=== PATIENT | male | born 1930 | race Caucasian/White ===

== ENCOUNTER 2016-12-13 10:24 | Observation (INO) | payer OTHER ==
[2016-12-13] VITALS (11 sets, daily range): BP systolic 107–144; BP diastolic 56–83; PULSE 63–82; RESP 15–20; TEMP 96.6–98.1; O2SAT 95–99
--- NOTE | 2016-12-13 10:58 | PD ---
HPI Chief Complaint: Syncope/Near-Syncope Time Seen by Provider: 10:49 Travel History International Travel<30 days: No Contact w/Intl Traveler<30days: No Traveled to known affect area: No History of Present Illness HPI This is an 86-year-old gentleman with a history of paroxysmal atrial fibrillation, autonomic dysfunction involving the vagus nerve, chronic headache and head congestion, Crohn's disease, who presents to the ED at the request of his doctor at the [place] for evaluation of abnormal EKG. The patient reports that he was being seen at the [facility] and when his physician was reading his EKG, she told him that he may have had a silent heart attack. The patient reports last night he had an episode of chest tightness that lasted 15-20 minutes. There was no associated exertional component. He reports the tightness was across his chest and this is not normal for him. The patient denies any nausea or diaphoresis. He does state that his bowel movements have changed over the last several months. There are no other complaints at the time my examination. PFSH Past Medical History Cardiovascular Problems: Yes (AFIB, VASOVAGAL SYNDROME) Social History Alcohol Use: No Tobacco Use: No Substance Use: No Allergies-Medications (Allergen,Severity, Reaction): Coded Allergies: Bactrim (Verified Allergy, Severe, 12/13/16) Penicillin (Verified Allergy, Intermediate, 12/13/16) Reported Meds & Prescriptions Reported Meds & Active Scripts Active Reported Lorazepam 1 Mg Tab 1 Mg PO Q4H PRN Cyanocobalamin Inj (Cyanocobalamin) 1,000 Mcg/Ml Inj 1,000 Mcg IM MONTHLY 2 Days Terazosin (Terazosin HCl) 2 Mg Cap 2 Mg PO HS Clonazepam 2 Mg Tab 2 Mg PO DAILY Cymbalta DR (Duloxetine HCl) 30 Mg Capdr 30 Mg PO DAILY Pantoprazole (Pantoprazole Sodium) 40 Mg Tab 40 Mg PO DAILY Potassium Chloride ER (Potassium Chloride) 20 Meq Tab 20 Meq PO BID Saw [place] (Saw [place] (Serenoa Repens)) 160 Mg Tab Vitamin K2 (Menaquinone-7) 100 Mcg Cap Biotin 1 Mg Cap 1 Mg PO Flecainide (Flecainide Acetate) 100 Mg Tab 100 Mg PO BID Eliquis (Apixaban) 5 Mg Tab 5 Mg PO BID Metamucil Multihealth Fiber (Psyllium Hydrophilic Mucilloid) 58.12 % Pow Fluticasone Nasal [place] 50 Mcg/Act Naspr 50 Mcg EACH NARE BID 50 mcg/spray Claritin (Loratadine) 10 Mg Cap 10 Mg PO DAILY Bupropion HCl ER 12 HR (Bupropion HCl) 150 Mg Tab 150 Mg PO Q12HR Fish Oil ([place]-3 Fatty Acids) 1,000 Mg Cap Vitamin D3 (Cholecalciferol) 400 Unit Cap 400 Units PO DAILY Calcium Carbonate 1,500 Mg Tab 1,500 Mg PO BID 1,500 mg calcium carbonate (600 mg elemental calcium) Glucosamine-Chondroitin 500-400 Mg Cap 1 Cap PO DAILY Review of Systems Except as stated in HPI: all other systems reviewed are Neg General / Constitutional: No: Fever HENT: Positive: Headaches, Lightheadedness (chronic), Congestion (chronic) Cardiovascular: Positive: Chest Pain or Discomfort, No: Palpitations (chest tightness yesterday.), Irregular Rhythm Respiratory: No: Cough, Shortness of Breath Gastrointestinal: No: Nausea, Vomiting, Abdominal Pain Musculoskeletal: No: Weakness Neurologic: Positive: Syncope (questionable), Headache (chronic), Other ( chronic neuropathy of the feet), No: Change in Mentation, Incontinence Physical Exam Narrative GENERAL: Well-developed well-nourished male in no acute distress. SKIN: Warm and dry. HEAD: Atraumatic. Normocephalic. EYES: No scleral icterus. No injection or drainage. ENT: No nasal bleeding or discharge. Mucous membranes pink and moist. NECK: Trachea midline. No JVD. Supple. No bruises appreciated CARDIOVASCULAR: Regular rate and rhythm. No murmur appreciated. RESPIRATORY: No accessory muscle use. Clear to auscultation. Breath sounds equal bilaterally. GASTROINTESTINAL: Abdomen soft, non-tender, nondistended. MUSCULOSKELETAL: Chronic deformity of his right toes. No cyanosis. No edema. NEUROLOGICAL: Awake and alert. No obvious cranial nerve deficits. Motor grossly within normal limits. Normal speech. PSYCHIATRIC: Appropriate mood and affect; insight and judgment normal. Data Data Last Documented VS Vital Signs Date Time Temp Pulse Resp B/P Pulse Ox O2 Delivery O2 Flow Rate FiO2 12/13/16 11:12 99 Nasal Cannula 2 12/13/16 11:11 69 118/77 116/56 12/13/16 10:30 98.1 15 Orders Electrocardiogram (12/13/16 10:49) Ckmb (Isoenzyme) Profile (12/13/16 10:49) Complete Blood Count With Diff (12/13/16 10:49) Comprehensive Metabolic Panel (12/13/16 10:49) Magnesium (Mg) (12/13/16 10:49) Prothrombin Time / Inr (Pt) (12/13/16 10:49) Act Partial Throm Time (Ptt) (12/13/16 10:49) Troponin I (12/13/16 10:49) Chest, Single Ap (12/13/16 10:49) Ecg Monitoring (12/13/16 10:49) Bilateral Bp Monitoring (12/13/16 10:49) Iv Access Insert/Monitor (12/13/16 10:49) Oximetry (12/13/16 10:49) Oxygen Administration (12/13/16 10:49) CKMB (12/13/16 11:05) CKMB% (12/13/16 11:05) Place In Observation (12/13/16 ) Vital Signs (Adult) Q4H (12/13/16 12:26) Activity Oob Ad Shaila (12/13/16 12:26) Mobile Battery Technician / Telemetry SCOT.Q8H (12/13/16 12:26) Diet Heart Healthy (12/13/16 Lunch) Sodium Chloride 0.9% Flush (Ns Flush) (12/13/16 12:30) Sodium Chloride 0.9% Flush (Ns Flush) (12/13/16 21:00) Complete Blood Count With Diff (12/14/16 06:00) Basic Metabolic Panel (Bmp) (12/14/16 06:00) Troponin I (12/13/16 17:00) Troponin I (12/13/16 23:00) Electrocardiogram (12/13/16 17:00) Consult Cardiology (12/13/16 ) Potassium Cl 40 Meq/30 Ml Liq (Kcl 40 Me (12/13/16 12:30) Admit Order (Ed Use Only) (12/13/16 12:30) Labs Laboratory Tests Test 12/13/16 11:05 White Blood Count 6.3 TH/MM3 Red Blood Count 4.50 MIL/MM3 Hemoglobin 13.3 GM/DL Hematocrit 39.8 % Mean Corpuscular Volume 88.6 FL Mean Corpuscular Hemoglobin 29.5 PG Mean Corpuscular Hemoglobin 33.4 % Concent Red Cell Distribution Width 15.6 % Platelet Count 187 TH/MM3 Mean Platelet Volume 7.5 FL Neutrophils (%) (Auto) 69.2 % Lymphocytes (%) (Auto) 19.5 % Monocytes (%) (Auto) 7.8 % Eosinophils (%) (Auto) 2.9 % Basophils (%) (Auto) 0.6 % Neutrophils # (Auto) 4.3 TH/MM3 Lymphocytes # (Auto) 1.2 TH/MM3 Monocytes # (Auto) 0.5 TH/MM3 Eosinophils # (Auto) 0.2 TH/MM3 Basophils # (Auto) 0.0 TH/MM3 CBC Comment DIFF FINAL Differential Comment Prothrombin Time 11.1 SEC Prothromb Time International 1.0 RATIO Ratio Activated Partial 27.5 SEC Thromboplast Time Sodium Level 140 MEQ/L Potassium Level 2.9 MEQ/L Chloride Level 105 MEQ/L Carbon Dioxide Level 26.0 MEQ/L Anion Gap 9 MEQ/L Blood Urea Nitrogen 13 MG/DL Creatinine 1.58 MG/DL Estimat Glomerular Filtration 42 ML/MIN Rate Random Glucose 106 MG/DL Calcium Level 8.2 MG/DL Magnesium Level 1.6 MG/DL Total Bilirubin 0.6 MG/DL Aspartate Amino Transf 23 U/L (AST/SGOT) Alanine Aminotransferase 25 U/L (ALT/SGPT) Alkaline Phosphatase 71 U/L Total Creatine Kinase 137 U/L Creatine Kinase MB 1.3 NG/ML Troponin I LESS THAN 0.02 NG/ML Total Protein 6.3 GM/DL Albumin 3.2 GM/DL [facility] Medical Decision Making Medical Screen Exam Complete: Yes Emergency Medical Condition: Yes Differential Diagnosis Cardiac syncope versus ACS versus autonomic syncope Narrative Course 86-year-old gentleman with a history of autonomic dysfunction, Crohn's disease, reported paroxysmal A. fib, who presents [facility] with concern for a "silent heart attack ". The patient states he had chest pain that lasted 1520 minutes last night. EKG is equivocal. First set of cardiac enzymes are negative. His potassium was low at 2.9. He's been given 40 mg by mouth times one dose here. Given the fact that he is also having syncope or or what sounds like syncope, I feel he would be best suited in a telemetry bed rather than the chest pain center. I do not think that this chest pain center is truly cardiac in etiology. The patient reports having episodes where he just falls down with no warning. This sounds suspicious for cardiac syncope. I discussed the case with Dr. Artem Baker, [facility], who agrees to place the patient under his service under observation. He'll be placed on the telemetry unit. He'll have further cardiac workup. There also be a cardiology consult. Nursing notes were reviewed and noted. Diagnosis Primary Impression: Chest pain Additional Impressions: Atypical syncope reported paroxysmal atrial fibrillation Crohns disease HYPOKALEMIA Taj Vail MD Dec 13, 2016 10:58
[2016-12-13] MEDS ORDERED: GLUC1CAP14 PO (11:21)
[2016-12-13] MEDS ORDERED: CHOL1CAP8 PO (11:21)
[2016-12-13] MEDS ORDERED: SAW160TA (11:21)
[2016-12-13] MEDS ORDERED: FLEC100T PO (11:21)
[2016-12-13] MEDS ORDERED: FISH1000 (11:21)
[2016-12-13] MEDS ORDERED: BIOT1CAP2 PO (11:21)
[2016-12-13] MEDS ORDERED: POTA-163 PO (11:21)
[2016-12-13] MEDS ORDERED: BUPR1TAB29 PO (11:21)
[2016-12-13] MEDS ORDERED: PSYL1POW7 (11:21)
[2016-12-13] MEDS ORDERED: APIX5TAB PO (11:21)
[2016-12-13] MEDS ORDERED: CALC600T4 PO (11:21)
[2016-12-13] MEDS ORDERED: FLUT50SP EACH NARE (11:21)
[2016-12-13] MEDS ORDERED: MENA1CAP (11:21)
[2016-12-13] MEDS ORDERED: CLAR10CA3 PO (11:21)
[2016-12-13] MEDS ORDERED: PANT40TA3 PO (11:28)
[2016-12-13] MEDS ORDERED: CYMB30CA PO (11:28)
[2016-12-13] MEDS ORDERED: TERA2CAP3 PO (11:28)
[2016-12-13] MEDS ORDERED: CLON2TAB PO (11:28)
[2016-12-13] MEDS ORDERED: CYAN1000P IM (11:28)
[2016-12-13] MEDS ORDERED: LORA1TAB12 PO (11:28)
[2016-12-13 11:29] LABS: AUTOMATED NEUTROPHIL # 4.3 TH/MM3 (1.8-7.7); BASOPHIL % 0.6 % (0.0-2.0); EOSINOPHIL # 0.2 TH/MM3 (0-0.4); EOSINOPHIL % 2.9 % (0.0-4.0); HEMATOCRIT 39.8 % (39.0-51.0); HEMO FLAGS DIFF FINAL; LYMPH % 19.5 % (9.0-44.0); LYMPHOCYTE # 1.2 TH/MM3 (1.0-4.8); MEAN CELL VOLUME 88.6 FL (80.0-100.0); MEAN CORPUSCULAR HEMOGLOBIN 29.5 PG (27.0-34.0); MEAN CORPUSCULAR HGB CONC 33.4 % (32.0-36.0); MONO % 7.8 % (0.0-8.0); NEUT % 69.2 % (16.0-70.0); PLATELET COUNT 187 TH/MM3 (150-450); RED CELL DISTRIBUTION WIDTH 15.6 % (11.6-17.2); WHITE BLOOD COUNT 6.3 TH/MM3 (4.0-11.0)
--- NOTE | 2016-12-13 11:34 | RADRPT ---
EXAM DATE/TIME: 12/13/2016 10:59 [facility] COMPARISON: No previous studies available for comparison. INDICATIONS : Chest Pain. MEDICAL HISTORY : Chronic obstructive pulmonary disease. SURGICAL HISTORY : None. ENCOUNTER: Initial ACUITY: 1 day PAIN SCORE: 8/10 LOCATION: Bilateral chest FINDINGS: Trace basilar atelectasis, mainly on the left. No lobar consolidation seen. No pleural effusion or pn eumothorax. Heart size within normal limits. Thoracic aorta is tortuous. Old, healed midshaft fracture of the lef t clavicle. CONCLUSION: Trace left base atelectasis. Otherwise negative. Colton De La Cruz MD on December 13, 2016 at 11:32 Board Certified Radiologist. This report was verified electronically.
[2016-12-13 11:39] LABS: APTT (PATIENT) 27.5 SEC (24.3-30.1); PROTHROMBIN TIME - PATIENT 11.1 SEC (9.8-11.6)
[2016-12-13 11:49] LABS: ALKALINE PHOSPHATASE 71 U/L (45-117); ALT (GPT) 25 U/L (12-78); ANION GAP 9 MEQ/L (5-15); AST (GOT) 23 U/L (15-37); BLOOD UREA NITROGEN 13 MG/DL (7-18); CHLORIDE 105 MEQ/L (98-107); CREATINE KINASE 137 U/L (39-308); GLOMERULAR FILTRATION RATE 42 ML/MIN (>89); MAGNESIUM 1.6 MG/DL (1.5-2.5); SODIUM (NA) 140 MEQ/L (136-145); TOTAL BILIRUBIN ADULT 0.6 MG/DL (0.2-1.0)
[2016-12-13 11:50] LABS: POTASSIUM 2.9 MEQ/L (3.5-5.1)
[2016-12-13 12:05] LABS: CKMB 1.3 NG/ML (0.5-3.6)
[2016-12-13] MEDS ORDERED: POTASSIUM CL 40 MEQ/30 ML LIQ UDC PO ONE (12:30)
[2016-12-13] MEDS ORDERED: SODIUM CHLORIDE 0.9% FLUSH 5 ML FLUSH IV PRN (12:30)
--- NOTE | 2016-12-13 15:12 | EKG ---
Date Performed: 12/13/2016 Time Performed: 10:50:23 PTAGE: 86 years EKG: Sinus rhythm LEFT AXIS DEVIATION INTRAVENTRICULAR CONDUCTION DISTURBANCE ABNORMAL ECG INTERPRETATION BASED ON A D EFAULT AGE OF 42 YEARS NO PREVIOUS TRACING DOCTOR: Taj Del Real Interpretating Date/Time 12/13/2016 15:11:32
--- NOTE | 2016-12-13 17:16 | HHI.HP ---
[facility] Service [facility] Primary Care Physician [facility] Admission Diagnosis chest pain, syncope, hypokalemia Diagnoses: Chief Complaint: chest pain, syncope Travel History International Travel<30 Days: No Contact w/Intl Traveler <30 Da: No Traveled to Known Affected Are: No History of Present Illness 86-year-old male with history of paroxysmal atrial fibrillation on Eliquis, autonomic dysfunction of vagus nerve, chronic headache/congestion, chronic dizziness/lightheadedness, occipital neuralgia, polyneuropathy, vasovagal syndrome, Crohn's disease, ELICIA, COPD, presents with chest pain, dizziness/ lightheadedness, and syncope. The patient states he had an episode 2 weeks ago where he was inside his home, stepped to the left to go to the refrigerator, and all of a sudden ended up on the floor. He denies any loss of consciousness, denies hitting his head. He states this happened so quickly that he only remembers starting to fall, then all of a sudden just ends up on the floor. He put his arms out to brace himself with the fall and then felt sore around the right shoulder and thorax over the next few days. He denies any chest pain, palpitations, or shortness of breath related to these events. This has happened 3-4x in the past few years. He has been able to go to the gym 4x this week without difficulty. He saw his PCP at the [facility] yesterday for this, did an EKG, compared it to an EKG done 1 year ago, and she was concerned he may have had a "silent" heart attack which is resulting in his syncopal episodes, therefore he was referred to the emergency department. Yesterday the patient reports he went to the store and was out doing errands all day, but then later in the afternoon he was just feeling very weak, tired, and laid down for a 3 hour nap which made him feel better but then he had a diffuse global headache that lasted an hour, then shortly after developed a diffuse anterior chest heaviness that lasted 15 minutes and went away after relaxing in his recliner. Chest pain not associated with any SOB, diaphoresis, nausea/vomiting. Currently he denies any headache, lightheadedness, dizziness, chest pain, palpitations, shortness of breath, or abdominal complaints. His shank stitcher is Dr. Toscano, last seen 1 month ago. He had a nuclear stress test done at Dr. Toscano's office in September 2016 which was unremarkable. Also reports an unremarkable echocardiogram done at the [facility] 9-10 months ago. He's also had a Holter monitor done in the past. He also sees a neurologist at the [facility] for his autonomic nervous system disorder. Review of Systems Constitutional: COMPLAINS OF: Dizziness, DENIES: Diaphoretic episodes, Fever, Chills, Change in appetite Eyes: DENIES: Blurred vision, Diplopia, Double Vision Ears, nose, mouth, throat: DENIES: Throat pain, Running Nose, Odynophagia Respiratory: DENIES: Cough, Shortness of breath Cardiovascular: COMPLAINS OF: Chest pain, Syncope, DENIES: Palpitations, Dyspnea on Exertion, Lower Extremity Edema Gastrointestinal: DENIES: Abdominal pain, Constipation, Diarrhea, Nausea, Vomiting Genitourinary: DENIES: Urgency, Dysuria Musculoskeletal: DENIES: Joint pain, Back pain, Neck pain Integumentary: DENIES: Pruritus, Rash Hematologic/lymphatic: DENIES: Bruising, Lymphadenopathy Immunologic/allergic: DENIES: Eczema, Urticaria Neurologic: COMPLAINS OF: Headache, DENIES: Abnormal gait, Localized weakness , Seizures Psychiatric: DENIES: Anxiety, Depression Past Family Social History Past Medical History paroxysmal atrial fibrillation on Eliquis autonomic dysfunction of vagus nerve chronic headache/congestion chronic dizziness/lightheadedness occipital neuralgia polyneuropathy vasovagal syndrome Crohn's disease ELICIA COPD Past Surgical History anterior cervical discectomy 2004 with plate tonsillectomy/adenoidectomy as a child ileocolonic resection, removed ileocecal valve cholecystectomy skin cancer resections 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, 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, 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 Reported Medications Lorazepam 1 Mg Tab 1 Mg PO Q4H PRN Cyanocobalamin Inj (Cyanocobalamin) 1,000 Mcg/Ml Inj 1,000 Mcg IM MONTHLY 2 Days Terazosin (Terazosin HCl) 2 Mg Cap 2 Mg PO HS Clonazepam 2 Mg Tab 2 Mg PO DAILY Cymbalta DR (Duloxetine HCl) 30 Mg Capdr 30 Mg PO DAILY Pantoprazole (Pantoprazole Sodium) 40 Mg Tab 40 Mg PO DAILY Potassium Chloride ER (Potassium Chloride) 20 Meq Tab 20 Meq PO BID Saw [place] (Saw [place] (Serenoa Repens)) 160 Mg Tab Vitamin K2 (Menaquinone-7) 100 Mcg Cap Biotin 1 Mg Cap 1 Mg PO Flecainide (Flecainide Acetate) 100 Mg Tab 100 Mg PO BID Eliquis (Apixaban) 5 Mg Tab 5 Mg PO BID Metamucil Multihealth Fiber (Psyllium Hydrophilic Mucilloid) 58.12 % Pow Fluticasone Nasal [place] 50 Mcg/Act Naspr 50 Mcg EACH NARE BID 50 mcg/spray Claritin (Loratadine) 10 Mg Cap 10 Mg PO DAILY Bupropion HCl ER 12 HR (Bupropion HCl) 150 Mg Tab 150 Mg PO Q12HR Fish Oil ([place]-3 Fatty Acids) 1,000 Mg Cap Vitamin D3 (Cholecalciferol) 400 Unit Cap 400 Units PO DAILY Calcium Carbonate 1,500 Mg Tab 1,500 Mg PO BID 1,500 mg calcium carbonate (600 mg elemental calcium) Glucosamine-Chondroitin 500-400 Mg Cap 1 Cap PO DAILY Allergies: Coded Allergies: Bactrim (Verified Allergy, Severe, 12/13/16) Penicillin (Verified Allergy, Intermediate, 12/13/16) Active Ordered Medications Current Medications Medications (Trade) Dose Ordered Sig/Jm Route Start Time Stop Time Status Last Admin (NS Flush) 2 ml UNSCH PRN IV 12/13/16 12:30 (NS Flush) 2 ml BID IV 12/13/16 21:00 (Eliquis) 5 mg BID PO 12/13/16 21:00 (Wellbutrin Sr) 150 mg Q12HR PO 12/13/16 21:00 (Oscal) 1,500 mg BID PO 12/13/16 21:00 (Vitamin D3) 400 units DAILY PO 12/14/16 09:00 (KlonoPIN) 2 mg DAILY PO 12/14/16 09:00 (Cymbalta Dr) 30 mg DAILY PO 12/14/16 09:00 (Tambocor) 100 mg BID PO 12/13/16 21:00 (Flonase Wale Spr) 1 spray BID EACH NARE 12/13/16 21:00 (Claritin) 10 mg DAILY PO 12/14/16 09:00 (Protonix) 40 mg DAILY PO 12/14/16 09:00 (KCl) 20 meq BID PO 12/13/16 21:00 (Hytrin) 2 mg HS PO 12/13/16 21:00 Family History Mother with lung cancer, smoker Father unknown medical history Sister with thyroid cancer Social History Smoked tobacco for 29+ years, quit in 1983 Denies any alcohol or illicit drug use Physical Exam Vital Signs Vital Signs Date Time Temp Pulse Resp B/P Pulse Ox O2 Delivery O2 Flow Rate FiO2 12/13/16 16:10 96.6 67 18 120/74 96 12/13/16 13:59 144/70 12/13/16 13:12 107/83 12/13/16 11:12 99 Nasal Cannula 2 12/13/16 11:11 69 118/77 116/56 12/13/16 10:53 99 Room Air 12/13/16 10:38 80 99 Room Air 12/13/16 10:36 12/13/16 10:30 98.1 82 15 114/58 97 Physical Exam GENERAL: Well-nourished, well-developed pleasant elderly male patient in [facility]. SKIN: Warm and dry. No rash. HEAD: Normocephalic. Atraumatic. EYES: Pupils equal and round. No scleral icterus. No injection or drainage. ENT: No nasal bleeding or discharge. Mucous membranes pink and moist. NECK: Supple. Trachea midline. CARDIOVASCULAR: Regular rate and rhythm. S1, S2 noted. No murmur appreciated. RESPIRATORY: No accessory muscle use. Clear to auscultation. Breath sounds equal bilaterally. GASTROINTESTINAL: Abdomen soft, non-tender, nondistended. Normoactive bowel sounds x4. MUSCULOSKELETAL: No obvious deformities. Extremities without clubbing, cyanosis , or edema. No calf tenderness bilaterally. NEUROLOGICAL: Awake and alert. No obvious cranial nerve deficits. Motor grossly within normal limits. 5/5 muscle strength in bilateral upper and lower extremities. Normal speech. PSYCHIATRIC: Appropriate mood and affect; insight and judgment normal. Laboratory Laboratory Tests Test 12/13/16 11:05 White Blood Count 6.3 Red Blood Count 4.50 Hemoglobin 13.3 Hematocrit 39.8 Mean Corpuscular Volume 88.6 Mean Corpuscular Hemoglobin 29.5 Mean Corpuscular Hemoglobin 33.4 Concent Red Cell Distribution Width 15.6 Platelet Count 187 Mean Platelet Volume 7.5 Neutrophils (%) (Auto) 69.2 Lymphocytes (%) (Auto) 19.5 Monocytes (%) (Auto) 7.8 Eosinophils (%) (Auto) 2.9 Basophils (%) (Auto) 0.6 Neutrophils # (Auto) 4.3 Lymphocytes # (Auto) 1.2 Monocytes # (Auto) 0.5 Eosinophils # (Auto) 0.2 Basophils # (Auto) 0.0 CBC Comment DIFF FINAL Differential Comment Prothrombin Time 11.1 Prothromb Time International 1.0 Ratio Activated Partial 27.5 Thromboplast Time Sodium Level 140 Potassium Level 2.9 Chloride Level 105 Carbon Dioxide Level 26.0 Anion Gap 9 Blood Urea Nitrogen 13 Creatinine 1.58 Estimat Glomerular Filtration 42 Rate Random Glucose 106 Calcium Level 8.2 Magnesium Level 1.6 Total Bilirubin 0.6 Aspartate Amino Transf 23 (AST/SGOT) Alanine Aminotransferase 25 (ALT/SGPT) Alkaline Phosphatase 71 Total Creatine Kinase 137 Creatine Kinase MB 1.3 Troponin I LESS THAN 0.02 Total Protein 6.3 Albumin 3.2 Result Diagram: 12/13/16 1105 12/13/16 1105 Imaging Last Impressions Chest X-Ray 12/13/16 1049 Signed Impressions: Service Date/Time: Tuesday, December 13, 2016 10:59 - CONCLUSION: Trace left base atelectasis. Otherwise negative. Colton De La Cruz MD Carotid Artery Ultrasound 12/13/16 0000 Signed Impressions: Service Date/Time: Tuesday, December 13, 2016 16:14 - CONCLUSION: 1. Mild intimal thickening without hemodynamically significant stenosis in the carotid arteries. Camron Medley MD Assessment and Plan Assessment and Plan 86-year-old male with history of paroxysmal atrial fibrillation on Eliquis, autonomic dysfunction of vagus nerve, chronic headache/congestion, chronic dizziness/lightheadedness, occipital neuralgia, polyneuropathy, vasovagal syndrome, Crohn's disease, ELICIA, COPD, presents with chest pain, dizziness/ lightheadedness, and syncope. He was seen at the [facility], noted to have an abnormal EKG concerning for possible "silent [place]" and sent here to the ER for further evaluation. Chest Pain: with reportedly abnormal EKG as outpatient. CXR images reviewed, unremarkable. Initial troponin negative and EKG without acute ST changes. Currently chest pain free. Pt reports outpatient Nuclear Stress Test in Sep 2016 which was unremarkable. Also had echo done 9-10 months ago which was unremarkable. -Rule out ACS with serial cardiac enzymes/EKG. -Monitor on telemetry. -Consult patient's shank stitcher Dr. Toscano Near-Syncopal Events: unclear etiology. Outpatient echo and Holter done within the past year, will try to obtain records. -check carotid U/S -with ongoing headache and head congestion/pressure, will check Head CT -check orthostatic blood pressures -needs to f/up with his neurologist as outpatient after discharge Paroxysmal Atrial Fibrillation: chronic -continue patient's Eliquis and Flecainide -monitor on telemetry Hypokalemia: K 2.9. Mag 1.6. -given po KCl 40meq -give Mag sulfate 1G IV -repeat BMP in the am CHRISTINA: Cr 1.58, no previous labs to compare, assume CHRISTINA related to dehydration -give IVF NS with KCl x1L -repeat BMP in the am Depression/Anxiety: chronic -continue patient's clonazepam, Wellbutrin, Cymbalta All other medical conditions stable, continue home medications as appropriate. DVT Prophylaxis: Eliquis Written by Dolores Sullivan, acting as scribe for Dr. Vasquez on 12/13/16 at 17: 10. The documentation accurately reflects the work performed [id number] by me on 12/13/16 at 1710. Code Status Full Discussed Condition With Patient, Sandeep CONRAD MD, RN, Kristine F PA-C Dec 13, 2016 17:16 Evelin Vasquez MD Dec 13, 2016 18:41
--- NOTE | 2016-12-13 17:31 | RADRPT ---
EXAM DATE/TIME: 12/13/2016 16:14 [facility] COMPARISON: No previous studies available for comparison. INDICATIONS : Syncope. MEDICAL HISTORY : Hypertension. A-fib. SURGICAL HISTORY : Iliocolic resection. ENCOUNTER: Initial ACUITY: 1 day PAIN SCORE: 0/10 LOCATION: Bilateral neck PEAK SYSTOLIC VELOCITIES (cm/sec): ICA/CCA RATIO: Right: 1.2 Left: 1.1 ICA: Right: 79 Left: 77 CCA: Right: 64 Left: 69 ECA: Right: 79 Left: 77 VERTEBRAL: Right: 40 antegrade Left: 47 antegrade Elevated flow velocities and ICA/CCA ratios have been found to correlate with increased degrees of vessel stenosis, calculated as percentage of diameter relative to a normal segment of distal ICA/CCA FINDINGS: RIGHT CAROTID: No significant stenosis is visualized. The waveforms are within normal limits. LEFT CAROTID: No significant stenosis is visualized. The waveforms are within normal limits. VERTEBRAL ARTERIES: Antegrade flow is seen in both vertebral arteries. MISCELLANEOUS: None. CONCLUSION: 1. Mild intimal thickening without hemodynamically significant stenosis in the carotid arteries. Camron Medley MD on December 13, 2016 at 17:17 Board Certified Radiologist. This report was verified electronically.
[2016-12-13] MEDS ORDERED: NS + KCL 20 MEQ INJ 1,000 ML IV SCH (18:15)
[2016-12-13] MEDS ORDERED: MAGNESIUM SULFATE 1 GM PREMIX 100 ML IV ONE (19:00)
[2016-12-13] MEDS: FLECAINIDE ACETATE 100 MG TAB PO SCH ×2 (22:02→23:09)
[2016-12-13] MEDS: POTASSIUM CHLORIDE 20 MEQ CONTROLLED RELEASE TAB PO SCH ×2 (22:02→23:09)
[2016-12-13] MEDS: buPROPion HCL 150 MG SUSTAINED RELEASE TAB PO SCH ×2 (22:02→23:09)
[2016-12-13] MEDS: CALCIUM CARBONATE 1.25 GM (CA 500 MG) TAB PO SCH ×2 (22:02→23:09)
[2016-12-13] MEDS: FLUTICASONE PROPIONATE 50 MCG/ACT 16 GM NASAL SPRAY EACH NARE SCH (22:02)
[2016-12-13] MEDS: TERAZOSIN HCL 1 MG CAP PO SCH (22:03)
[2016-12-13] MEDS: SODIUM CHLORIDE 0.9% FLUSH 5 ML FLUSH IV SCH (22:03)
[2016-12-13] MEDS: APIXABAN 5 MG TABLET PO SCH (22:03)
[2016-12-14] MEDS: TERAZOSIN HCL 1 MG CAP PO SCH (00:09)
[2016-12-14] MEDS: APIXABAN 5 MG TABLET PO SCH (00:09)
[2016-12-14 03:58] VITALS: BP 106/54; PULSE 67; RESP 20; TEMP 97.6; O2SAT 95
[2016-12-14 05:29] LABS: AUTOMATED NEUTROPHIL # 3.6 TH/MM3 (1.8-7.7); BASOPHIL % 0.4 % (0.0-2.0); EOSINOPHIL # 0.2 TH/MM3 (0-0.4); EOSINOPHIL % 4.3 % (0.0-4.0); HEMATOCRIT 35.1 % (39.0-51.0); HEMO FLAGS DIFF FINAL; LYMPH % 25.1 % (9.0-44.0); LYMPHOCYTE # 1.4 TH/MM3 (1.0-4.8); MEAN CELL VOLUME 86.8 FL (80.0-100.0); MEAN CORPUSCULAR HEMOGLOBIN 30.4 PG (27.0-34.0); MONO % 7.4 % (0.0-8.0); NEUT % 62.8 % (16.0-70.0); PLATELET COUNT 169 TH/MM3 (150-450); RED BLOOD COUNT 4.05 MIL/MM3 (4.50-5.90); RED CELL DISTRIBUTION WIDTH 15.8 % (11.6-17.2); WHITE BLOOD COUNT 5.7 TH/MM3 (4.0-11.0)
[2016-12-14 06:35] LABS: BICARBONATE 26.7 MEQ/L (21.0-32.0)
[2016-12-14 06:40] LABS: POTASSIUM 2.8 MEQ/L (3.5-5.1)
[2016-12-14] MEDS ORDERED: POTASSIUM CHLORIDE 20 MEQ CONTROLLED RELEASE TAB PO ONE ×2 (07:00→11:30)
[2016-12-14] MEDS: POTASSIUM CHLOR 20 MEQ PREMIX 100 ML IV SCH ×3 (07:04→10:37)
[2016-12-14 07:27] VITALS: BP 135/79; PULSE 71; RESP 22; TEMP 97.8; O2SAT 94
[2016-12-14 07:40] LABS: MAGNESIUM 1.8 MG/DL (1.5-2.5)
[2016-12-14] MEDS ORDERED: clonazePAM 1 MG TAB PO SCH (09:00)
[2016-12-14] MEDS ORDERED: GLUCOSAMINE CHONDROITIN PO SCH (09:00)
[2016-12-14] MEDS ORDERED: CHOLECALCIFEROL (VIT D3) 400 UNIT TAB PO SCH (09:00)
[2016-12-14] MEDS ORDERED: LORATADINE 10 MG TAB PO SCH (09:00)
[2016-12-14] MEDS: buPROPion HCL 150 MG SUSTAINED RELEASE TAB PO SCH (09:00)
[2016-12-14] MEDS: SODIUM CHLORIDE 0.9% FLUSH 5 ML FLUSH IV SCH (09:00)
[2016-12-14] MEDS ORDERED: PANTOPRAZOLE SOD 40 MG DELAYED RELEASE TAB PO SCH ×2 (09:00→22:00)
[2016-12-14] MEDS ORDERED: DULoxetine HCl DR 30 MG CAP PO SCH ×2 (09:00→22:00)
[2016-12-14] MEDS: FLUTICASONE PROPIONATE 50 MCG/ACT 16 GM NASAL SPRAY EACH NARE SCH (10:14)
--- NOTE | 2016-12-14 10:20 | RADRPT ---
EXAM DATE/TIME: 12/14/2016 09:52 [facility] COMPARISON: No previous studies available for comparison. INDICATIONS : Chronic headache and dizziness. RADIATION DOSE: 56.35 CTDIvol (mGy) MEDICAL HISTORY : Hypertension. Cardiovascular disease SURGICAL HISTORY : Fusion, cervical. ENCOUNTER: Initial ACUITY: 1 yr PAIN SCALE: 0/10 LOCATION: cranial TECHNIQUE: Multiple contiguous axial images were obtained of the head. Using automated exposure control and adj ustment of the mA and/or kV according to patient size, radiation dose was kept as low as reasonably a chievable to obtain optimal diagnostic quality images. FINDINGS: CEREBRUM: The ventricles are normal for age. No evidence of midline shift, mass lesion, hemorrhage or acute in farction. No extra-axial fluid collections are seen. POSTERIOR FOSSA: The cerebellum and brainstem are intact. The 4th ventricle is midline. The cerebellopontine angle i s unremarkable. EXTRACRANIAL: The visualized portion of the orbits is intact. SKULL: The calvaria is intact. No evidence of skull fracture. CONCLUSION: No acute intracranial findings. Mati Oneil MD on December 14, 2016 at 10:17 Board Certified Radiologist. This report was verified electronically.
[2016-12-14 11:45] VITALS: BP 116/67; PULSE 72; RESP 20; TEMP 98.3; O2SAT 93
[2016-12-14] MEDS: POTASSIUM CHLORIDE 20 MEQ CONTROLLED RELEASE TAB PO SCH (11:51)
[2016-12-14] MEDS: CALCIUM CARBONATE 1.25 GM (CA 500 MG) TAB PO SCH (11:51)
[2016-12-14] MEDS ORDERED: FLECAINIDE ACETATE 100 MG TAB PO SCH (12:00)
[2016-12-14] MEDS ORDERED: APIXABAN 5 MG TABLET PO SCH (12:00)
[2016-12-14] MEDS ORDERED: POTASSIUM CHLORIDE 10 MEQ CONTROLLED RELEASE TAB PO ONE (14:00)
[2016-12-14 15:46] VITALS: BP 149/79; PULSE 74; RESP 20; TEMP 98; O2SAT 94
--- NOTE | 2016-12-14 16:26 | HHI.PR ---
Subjective Remarks Patient reports that he is feeling at his baseline. He is requesting to go home. No chest pressure or pain. No shortness of breath. Objective Vitals Vital Signs Date Time Temp Pulse Resp B/P Pulse Ox O2 Delivery O2 Flow Rate FiO2 12/14/16 15:46 98.0 74 20 149/79 94 12/14/16 11:45 98.3 72 20 116/67 93 12/14/16 07:27 97.8 71 22 135/79 94 12/14/16 03:58 97.6 67 20 106/54 95 12/13/16 23:48 98.0 71 20 132/78 97 12/13/16 21:55 63 12/13/16 19:48 97.6 70 20 112/56 95 I/O 12/13/16 12/13/16 12/13/16 12/14/16 12/14/16 12/14/16 07:00 15:00 23:00 07:00 15:00 23:00 Output Total 200 ml Balance -200 ml Output Urine Total 200 ml Result Diagram: 12/14/16 0428 12/14/16 1230 Imaging Last Impressions Head CT 12/14/16 0000 Signed Impressions: Service Date/Time: Wednesday, December 14, 2016 09:52 - CONCLUSION: No acute intracranial findings. Mati Oneil MD Chest X-Ray 12/13/16 1049 Signed Impressions: Service Date/Time: Tuesday, December 13, 2016 10:59 - CONCLUSION: Trace left base atelectasis. Otherwise negative. Colton De La Cruz MD Carotid Artery Ultrasound 12/13/16 0000 Signed Impressions: Service Date/Time: Tuesday, December 13, 2016 16:14 - CONCLUSION: 1. Mild intimal thickening without hemodynamically significant stenosis in the carotid arteries. Camron Medley MD Objective Remarks GENERAL: This is a well-nourished, well-developed patient, in no apparent distress. CARDIOVASCULAR: Normal rate and regular rhythm without murmurs, gallops, or rubs. RESPIRATORY: Good respiratory efforts. Breath sounds equal and clear to auscultation bilaterally. GASTROINTESTINAL: Abdomen soft, non-tender, non-distended. Normal active bowel sounds MUSCULOSKELETAL: Extremities without cyanosis, or edema. NEURO: Alert & Oriented x4 to person, place, time, situation. Moves all ext x4 PSYCH: Appropriate mood and affect. A/P Assessment and Plan 86-year-old male with history of paroxysmal atrial fibrillation on Eliquis, autonomic dysfunction of vagus nerve, chronic headache/congestion, chronic dizziness/lightheadedness, occipital neuralgia, polyneuropathy, vasovagal syndrome, Crohn's disease, ELICIA, COPD, presents with chest pain, dizziness/ lightheadedness, and syncope. He was seen at the [facility], noted to have an abnormal EKG concerning for possible "silent VT" and sent here to the ER for further evaluation. Chest Pain: Atypical. With reportedly abnormal EKG as outpatient. EKG reviewed here. No acute ST changes noted. CXR images reviewed, unremarkable. ACS ruled out with serial troponins and EKG, all unremarkable. Pt reports outpatient Nuclear Stress Test in Sep 2016 which was unremarkable. I discussed the case with Dr. Fajardo who is homemaking rehabilitation consultant for Dr. Toscano. Given no active symptoms and no other objective findings. Patient deemed stable to go home and follow up outpatient. Near-Syncopal Events: Patient does report a history of autonomic dysfunction involving the vagus nerve. Head CT unremarkable. Carotid ultrasound with no hemodynamically significant stenosis. -needs to f/up with his neurologist as outpatient after discharge Paroxysmal Atrial Fibrillation: chronic -continue patient's Eliquis and Flecainide -monitor on telemetry Hypokalemia: K 2.9. Mag 1.6. Potassium was replaced aggressively. Patient advised to increase his potassium supplement to 40 mEq twice daily. CHRISTINA: Cr 1.58, no previous labs to compare, assume CHRISTINA related to dehydration. This improved with IV fluid. Depression/Anxiety: chronic -continue patient's Wellbutrin, Cymbalta All other medical conditions stable, continue home medications. Patient is discharge home in good condition Follow up with cardiology next week Activity: Regular as tolerated Diet: Heart healthy Meds: Per med rec. Evelin Vasquez MD Dec 14, 2016 16:26
[2016-12-14] MEDS ORDERED: POTA-163 PO (16:40)
--- NOTE | 2016-12-14 16:41 | HHI.DCPOC ---
Discharge Care Plan Diagnosis: (1) Near syncope Goals to Promote Your Health * To prevent worsening of your condition and complications * To maintain your health at the optimal level Directions to Meet Your Goals Take your medications as prescribed Follow your dietary instruction Follow activity as directed Keep your appointments as scheduled Take your immunizations and boosters as scheduled If your symptoms worsen call your PCP, if no PCP go to Urgent Care Center or Emergency Room Smoking is Dangerous to Your Health. Avoid second hand smoke Call the 24-hour hour crisis hotline for domestic abuse at Evelin Vasquez MD Dec 14, 2016 16:41
== END 2016-12-14 17:46 | disposition home or self-care (01) ==
LOC: NEPC 10:24 → NEDA 12:34 → NEPGCP 15:02
PROVIDERS: ADMIT Family Medicine; ATTEND Family Medicine
DX: R55 Syncope and collapse (principal); R07.89 Other chest pain; E87.6 Hypokalemia; I48.0 Paroxysmal atrial fibrillation; J44.9 Chronic obstructive pulmonary disease, unspecified; G47.33 Obstructive sleep apnea (adult) (pediatric); F41.9 Anxiety disorder, unspecified; F32.9 Major depressive disorder, single episode, unspecified; N17.9 Acute kidney failure, unspecified; J98.11 Atelectasis; G90.9 Disorder of the autonomic nervous system, unspecified; K50.90 Crohn's disease, unspecified, without complications; Z85.820 Personal history of malignant melanoma of skin; Z87.891 Personal history of nicotine dependence; Z79.01 Long term (current) use of anticoagulants
CPT/HCPCS: 70450; 71010; 80048; 80053; 82550; 82552; 82607; 83735; 84132; 84484; 85025; 85610; 85730; 93005; 93880; 99285; G0378; J3475; J3480

== ENCOUNTER 2017-06-09 18:43 | Inpatient (IN) | payer OTHER, MEDICARE ==
[~2017-06-09] VITALS: Ht 180.3 cm; Wt 81.3 kg
[~2017-06-09 18:43] MED LIST: APIX5TAB PO; BIOT1CAP2 PO; BUPR1TAB29 PO; CALC600T4 PO; CHOL1CAP8 PO; CLAR10CA3 PO; CYAN1000P IM; CYMB30CA PO; FISH1000; FLEC100T PO; FLUT50SP EACH NARE; GLUC1CAP14 PO; LORA1TAB12 PO; MENA1CAP; PANT40TA3 PO; POTA-163 PO; PSYL1POW7; SAW160TA; TERA2CAP3 PO
[2017-06-09 19:06] VITALS: BP 143/73; PULSE 79; RESP 22; TEMP 97.7; O2SAT 98
--- NOTE | 2017-06-09 19:18 | PD ---
HPI Chief Complaint: Fall Time Seen by Provider: 19:14 Travel History International Travel<30 days: No Contact w/Intl Traveler<30days: No Traveled to known affect area: No History of Present Illness HPI 86-year-old elderly male presents to the emergency department via EMS for evaluation of left hip injury. The patient states he was walking to the bathroom with a recliner. He states his left leg felt different and he got to the bathroom where his leg gave out and he fell. The patient is unsure if he lost consciousness. The patient's left hip is rotated externally. The patient received morphine 12 mg IV prior to arrival. He states his pain is still severe. The patient reports history of A. fib and is on Eliquis. Patient states that he has had his left leg feels different before and it was due to peripheral neuropathy. He states that feeling has resolved. Patient also reports right shoulder and right elbow pain as well as right anterior chest wall pain. Patient has abrasions to the right shoulder, right chest, right elbow. His last tetanus immunization was in 2013. Patient apparently fell 3 hours prior to arrival. PFSH Past Medical History Asthma: No Blood Disorders: No Heart Rhythm Problems: No Cancer: No Cardiovascular Problems: Yes (hx. of afib) High Cholesterol: No Chemotherapy: No Chest Pain: No Congestive Heart Failure: No COPD: No Diabetes: No Endocrine: No Genitourinary: No Immune Disorder: No Musculoskeletal: No Neurologic: No Psychiatric: No Reproductive: No Respiratory: No Radiation Therapy: No Sleep Apnea: No Thyroid Disease: No Past Surgical History Abdominal Surgery: Yes (ILIOCOLIC RESECTION) Other Surgery: Yes (ANTERIOR CERVICAL LAMINECTOMY) Social History Alcohol Use: No Tobacco Use: No Substance Use: No Allergies-Medications (Allergen,Severity, Reaction): Coded Allergies: sulfamethoxazole (Unverified Allergy, Severe, 06/09/17) trimethoprim (Unverified Allergy, Severe, 06/09/17) penicillin G (Unverified Allergy, Intermediate, 06/09/17) Reported Meds & Prescriptions Reported Meds & Active Scripts Active Potassium Chloride ER (Potassium Chloride) 20 Meq Tab 40 Meq PO BID Reported Lorazepam 1 Mg Tab 1 Mg PO Q4H PRN Cyanocobalamin Inj (Cyanocobalamin) 1,000 Mcg/Ml Inj 1,000 Mcg IM MONTHLY 2 Days Terazosin (Terazosin HCl) 2 Mg Cap 2 Mg PO HS Cymbalta DR (Duloxetine HCl) 30 Mg Capdr 30 Mg PO DAILY Pantoprazole (Pantoprazole Sodium) 40 Mg Tab 40 Mg PO DAILY Biotin 1 Mg Cap 1 Mg PO Flecainide (Flecainide Acetate) 100 Mg Tab 100 Mg PO BID Eliquis (Apixaban) 5 Mg Tab 2.5 Mg PO BID Metamucil [facility] Fiber (Psyllium Hydrophilic Mucilloid) 58.12 % Pow usally takes 2-4tsp prn Fluticasone Nasal [place] 50 Mcg/Act Naspr 50 Mcg EACH NARE BID 50 mcg/spray Claritin (Loratadine) 10 Mg Cap 10 Mg PO DAILY Fish Oil ([place]-3 Fatty Acids) 1,000 Mg Cap Vitamin D3 (Cholecalciferol) 400 Unit Cap 400 Units PO DAILY Calcium Carbonate 1,500 Mg Tab 1,500 Mg PO BID 1,500 mg calcium carbonate (600 mg elemental calcium) Review of Systems Except as stated in HPI: all other systems reviewed are Neg Physical Exam Narrative GENERAL: Well-nourished, well-developed elderly male patient, afebrile. SKIN: Focused skin assessment warm/dry. Patient has abrasion to the right shoulder, right posterior elbow, right lower anterior chest wall. HEAD: Normocephalic. EYES: No scleral icterus. No injection or drainage. NECK: Supple, trachea midline. No JVD or lymphadenopathy. CARDIOVASCULAR: Regular rate and rhythm without murmurs, gallops, or rubs. RESPIRATORY: Breath sounds equal bilaterally. No accessory muscle use. Lungs sounds are clear to auscultation. GASTROINTESTINAL: Abdomen soft, non-tender, nondistended. MUSCULOSKELETAL: No cyanosis, or edema. Left hip is externally rotated and is in a flexed position. Left pedal pulses 2+. Capillary refill is less than 2 seconds. BACK: Nontender without obvious deformity. No CVA tenderness. Data Data Last Documented VS Vital Signs Date Time Temp Pulse Resp B/P Pulse Ox O2 Delivery O2 Flow Rate FiO2 06/09/17 19:06 97.7 79 22 143/73 98 Orders Iv Access Insert/Monitor (06/09/17 19:08) Complete Blood Count With Diff (06/09/17 19:08) Comprehensive Metabolic Panel (06/09/17 19:08) Prothrombin Time / Inr (Pt) (06/09/17 19:08) Act Partial Throm Time (Ptt) (06/09/17 19:08) Chest, Single Ap (06/09/17 ) Ct Brain W/O Iv Contrast(Rout) (06/09/17 ) Ct Cerv Spine W/O Contrast (06/09/17 ) Shoulder, Complete (>2vws) (06/09/17 ) Elbow, Complete (4 Vws) (06/09/17 ) Electrocardiogram (06/09/17 ) Hydromorphone Pf Inj (Dilaudid Pf Inj) (06/09/17 19:45) Pelvis, Ap Only (Routine) (06/09/17 ) Hip, Lat Only Wo Ap Pelvis (06/09/17 ) Fentanyl Inj (Fentanyl Inj) (06/09/17 20:30) Midazolam Inj (Versed Inj) (06/09/17 20:30) Naloxone Inj (Narcan Inj) (06/09/17 20:30) Flumazenil Inj (Romazicon Inj) (06/09/17 20:30) Fentanyl Inj (Fentanyl Inj) (06/09/17 20:47) Hip, Ap Only Wo Ap Pelvis (06/09/17 ) Ct Hip W/O Contrast (06/09/17 ) Immobilizer Knee 20 Inch (06/09/17 ) Labs Laboratory Tests Test 06/09/17 06/09/17 19:30 22:20 Sodium Level 141 MEQ/L Potassium Level 3.2 MEQ/L Chloride Level 117 MEQ/L Carbon Dioxide Level 17.8 MEQ/L Anion Gap 6 MEQ/L Blood Urea Nitrogen 20 MG/DL Creatinine 1.26 MG/DL Estimat Glomerular Filtration 55 ML/MIN Rate Random Glucose 96 MG/DL Calcium Level 6.7 MG/DL Protein Corrected Calcium 7.5 MG/DL Total Bilirubin 0.5 MG/DL Aspartate Amino Transf 50 U/L (AST/SGOT) Alanine Aminotransferase 27 U/L (ALT/SGPT) Alkaline Phosphatase 66 U/L Total Protein 5.4 GM/DL Albumin 3.0 GM/DL White Blood Count 6.9 TH/MM3 Red Blood Count 3.85 MIL/MM3 Hemoglobin 12.2 GM/DL Hematocrit 36.6 % Mean Corpuscular Volume 95.2 FL Mean Corpuscular Hemoglobin 31.8 PG Mean Corpuscular Hemoglobin 33.4 % Concent Red Cell Distribution Width 14.2 % Platelet Count 90 TH/MM3 Mean Platelet Volume 8.1 FL Neutrophils (%) (Auto) % Lymphocytes (%) (Auto) % Monocytes (%) (Auto) % Eosinophils (%) (Auto) % Basophils (%) (Auto) % Neutrophils # (Auto) TH/MM3 Lymphocytes # (Auto) TH/MM3 Monocytes # (Auto) TH/MM3 Eosinophils # (Auto) TH/MM3 Basophils # (Auto) TH/MM3 CBC Comment AUTO DIFF MDM Medical Decision Making Medical Screen Exam Complete: Yes Emergency Medical Condition: Yes Medical Record Reviewed: Yes Interpretation(s) Last Impressions Shoulder X-Ray 06/09/17 Signed Impressions: Service Date/Time: Friday, June 09, 2017 21:37 - CONCLUSION: Intact right shoulder. Moderate to severe degenerative changes as above. Colton De La Cruz MD Pelvis X-Ray 06/09/17 Signed Impressions: Service Date/Time: Friday, June 09, 2017 19:46 - CONCLUSION: Dislocated left hip. No fracture demonstrated. Colton De La Cruz MD Hip X-Ray 06/09/17 Signed Impressions: Service Date/Time: Friday, June 09, 2017 21:20 - CONCLUSION: Interim reduction of the previously seen posterior/inferior dislocation of the left hip. No fracture demonstrated. Colton De La Cruz MD Hip X-Ray 06/09/17 0000 Signed Impressions: Service Date/Time: Friday, June 09, 2017 19:46 - CONCLUSION: Posterior and inferior left hip dislocation. Colton De La Cruz MD Head CT 06/09/17 0000 Signed Impressions: Service Date/Time: Friday, June 09, 2017 20:16 - CONCLUSION: Noncontrast head CT is normal for age. Colton De La Cruz MD Elbow X-Ray 06/09/17 0000 Signed Impressions: Service Date/Time: Friday, June 09, 2017 21:42 - CONCLUSION: Intact right elbow. Chronic/degenerative changes as above. Colton De La Cruz MD Chest X-Ray 06/09/17 0000 Signed Impressions: Service Date/Time: Friday, June 09, 2017 21:36 - CONCLUSION: Mild left base infiltrate. Colton De La Cruz MD Cervical Spine CT 06/09/17 0000 Signed Impressions: Service Date/Time: Friday, June 09, 2017 20:16 - CONCLUSION: 1. No fracture or subluxation of the cervical spine. 2. Moderate degenerative changes at C3/ C4 with mild bilateral foraminal stenosis. 3. Mild degenerative changes at C7/T1 without evidence of foraminal or spinal stenosis. 4. Solid-appearing fusion without fracture or acute complication from C4/C5 through C6/C7. Colton De La Cruz MD ct hip = CONCLUSION: 1. Intact and normally aligned left hip. 2. Adductor predominant muscle strain. 3. Mild left hip osteoarthritis. Differential Diagnosis Hip dislocation versus hip fracture versus contusion versus intracranial hemorrhage versus closed head injury versus cervical strain versus fracture Narrative Course 86-year-old elderly male presents to the emergency department via EMS for evaluation of left hip pain after a fall. EKG, CBC, CMP, PTT, PTT/INR are ordered and pending. Chest x-ray, x-ray of the right shoulder, x-ray of the right elbow, x-rays left hip with pelvis, CT of the brain, CT of the cervical spine are ordered and pending. EKG shows SR, HR 77, no acute ST changes. CBC shows WBC of 6.9. CMP shows hypokalemia of 3.2. Coags show no acute abnormality. Chest x-ray shows mild left basilar infiltrate. X-ray of the right shoulder shows no acute fracture. X-ray of the right elbow shows no acute fracture. X-ray of the left hip with pelvis shows posterior inferior left hip dislocation. CT brain is normal. CT cervical spine shows no fracture or subluxation of the cervical spine. I spoke to YVONNE Rhodes, who states that the hip should be reduced tonight in the emergency department. My attending physician, Dr. Rodriguez and I reduced hip dislocation. Please see his note for further details. Knee immobilizer was applied. Post reduction x-ray shows interval reduction of the previously seen posterior/inferior dislocation the left hip, no fracture demonstrated. CT of the hip is pending. Ct shows Intact and normally aligned left hip; 2. Adductor predominant muscle strain; 3. Mild left hip osteoarthritis. [facility] is paged for admission. Dr. Pinedo accepted admission. Diagnosis Primary Impression: Hip dislocation, left Qualified Code: S73.005A - Dislocation of left hip, initial encounter Admitting Information Admitting Physician Requests: Observation Janessa Bernal Jun 09, 2017 19:18
[2017-06-09] MEDS ORDERED: HYDROmorphone HCL PF 1 MG/ML VIAL IVS ONE (19:45)
--- NOTE | 2017-06-09 20:01 | RADRPT ---
EXAM DATE/TIME: 06/09/2017 19:46 [facility] COMPARISON: No previous studies available for comparison. INDICATIONS : Left hip pain after fall. MEDICAL HISTORY : None. SURGICAL HISTORY : None. ENCOUNTER: Initial ACUITY: 1 day PAIN SCORE: 10/10 LOCATION: Pelvis. FINDINGS: Bony pelvis is intact. Left hip is inferiorly dislocated. CONCLUSION: Dislocated left hip. No fracture demonstrated. Colton De La Cruz MD on June 09, 2017 at 19:58 Board Certified Radiologist. This report was verified electronically.
[2017-06-09] MEDS ORDERED: fentaNYL CITRATE 250 MCG/5 ML AMP IV PUSH ONE (20:30)
[2017-06-09] MEDS ORDERED: NALOXONE HCL 2 MG/2 ML VIAL IV PUSH ONE (20:30)
[2017-06-09] MEDS ORDERED: MIDAZOLAM HCL 2 MG/2 ML VIAL IV PUSH ONE (20:30)
[2017-06-09] MEDS ORDERED: FLUMAZENIL 0.5 MG/5 ML VIAL IV PUSH PRN (20:30)
--- NOTE | 2017-06-09 20:38 | RADRPT ---
EXAM DATE/TIME: 06/09/2017 20:16 [facility] COMPARISON: CT BRAIN W/O CONTRAST, December 14, 2016, 9:52. INDICATIONS : Trauma, fall. Bruising to anterior head. RADIATION DOSE: 65.22 CTDIvol (mGy) MEDICAL HISTORY : Hypertension. AFIB SURGICAL HISTORY : Cervical laminectomy. ENCOUNTER: Initial ACUITY: 1 day PAIN SCALE: 0/10 LOCATION: cranial TECHNIQUE: Multiple contiguous axial images were obtained of the head. Using automated exposure control and adj ustment of the mA and/or kV according to patient size, radiation dose was kept as low as reasonably a chievable to obtain optimal diagnostic quality images. DICOM format image data is available electro nically for review and comparison. FINDINGS: CEREBRUM: The ventricles are normal for age. No evidence of midline shift, mass lesion, hemorrhage or acute in farction. No extra-axial fluid collections are seen. POSTERIOR FOSSA: The cerebellum and brainstem are intact. The 4th ventricle is midline. The cerebellopontine angle i s unremarkable. EXTRACRANIAL: The visualized portion of the orbits is intact. SKULL: The calvaria is intact. No evidence of skull fracture. CONCLUSION: Noncontrast head CT is normal for age. Colton De La Cruz MD on June 09, 2017 at 20:36 Board Certified Radiologist. This report was verified electronically.
--- NOTE | 2017-06-09 20:42 | RADRPT ---
EXAM DATE/TIME: 06/09/2017 20:16 [facility] COMPARISON: No previous studies available for comparison. INDICATIONS : Neck pain, patient fell today. RADIATION DOSE: 21.58 CTDIvol (mGy) MEDICAL HISTORY : Hypertension. AFIB SURGICAL HISTORY : Fusion, cervical. ENCOUNTER: Initial ACUITY: 1 day PAIN SCALE: 10/10 LOCATION: neck TECHNIQUE: Volumetric scanning of the cervical spine was performed. Multiplanar reconstructions in the sagittal, coronal and oblique axial planes were performed. Using automated exposure control and adjustment o f the mA and/or kV according to patient size, radiation dose was kept as low as reasonably achievable to obtain optimal diagnostic quality images. DICOM format image data is available electronically f or review and comparison. FINDINGS: VERTEBRAE: Normal vertebral body height. ALIGNMENT: No evidence of subluxation. C2-C3: Disc height within normal limits. Moderate bilateral facet osteoarthritis. No evidence of foraminal s tenosis. No spinal stenosis. C3-C4: The disc has moderate loss of height. Small, broad/diffuse disc osteophyte complex and moderate to se nika bilateral uncovertebral and facet osteoarthritis present. There is mild to moderate bilateral fo raminal stenosis. C4-C5: Fused. C5-C6: Fused. C6-C7: Fused. C7-T1: Mild disc space narrowing and mild bilateral facet osteoarthritis. No evidence of foraminal or spinal stenosis. CONCLUSION: 1. No fracture or subluxation of the cervical spine. 2. Moderate degenerative changes at C3/C4 with mild bilateral foraminal stenosis. 3. Mild degenerative changes at C7/T1 without evidence of foraminal or spinal stenosis. 4. Solid-appearing fusion without fracture or acute complication from C4/C5 through C6/C7. Colton De La Cruz MD on June 09, 2017 at 20:37 Board Certified Radiologist. This report was verified electronically.
[2017-06-09 20:45] LABS: BICARBONATE 17.8 MEQ/L (21.0-32.0); CALCIUM-PROTEIN CORRECTED 7.5 MG/DL (8.5-10.1); POTASSIUM 3.2 MEQ/L (3.5-5.1); TOTAL BILIRUBIN ADULT 0.5 MG/DL (0.2-1.0)
[2017-06-09] MEDS ORDERED: fentaNYL CITRATE 250 MCG/5 ML AMP ONE (20:47)
--- NOTE | 2017-06-09 20:50 | RADRPT ---
EXAM DATE/TIME: 06/09/2017 19:46 [facility] COMPARISON: No previous studies available for comparison. INDICATIONS : Left hip dislocation after fall. MEDICAL HISTORY : None. SURGICAL HISTORY : None. ENCOUNTER: Initial ACUITY: 1 day PAIN SCORE: 10/10 LOCATION: Left hip. FINDINGS: Left hip is dislocated posteriorly and inferiorly. No perceptible fracture. CONCLUSION: Posterior and inferior left hip dislocation. Colton De La Cruz MD on June 09, 2017 at 20:47 Board Certified Radiologist. This report was verified electronically.
[2017-06-09 20:56] VITALS: O2SAT 99
--- NOTE | 2017-06-09 21:27 | PD ---
Physical Exam Narrative PA REQUESTED ASSISTANCE DUE TO NEED FOR SEDATION AND REDUCTIONGENERAL: SKIN: Warm and dry. HEAD: Atraumatic. Normocephalic. EYES: Pupils equal and round. No scleral icterus. No injection or drainage. ENT: No nasal bleeding or discharge. Mucous membranes pink and moist. NECK: Trachea midline. No JVD. CARDIOVASCULAR: Regular rate and rhythm. NVI, PULSES STRONG AT FEMORAL/ POPLITEAL AND DP PRIOR AND POST REDUCTION RESPIRATORY: No accessory muscle use. Clear to auscultation. Breath sounds equal bilaterally. GASTROINTESTINAL: Abdomen soft, non-tender, nondistended. MUSCULOSKELETAL: Extremities without clubbing, cyanosis, or edema. No obvious deformities. LEFT LE HELD ABDUCTED/FLEXED AT HIP AND KNEE (FOR VISUAL AID, LLE HELD IN "[employer]" [address]) NEUROLOGICAL: Awake and alert. No obvious cranial nerve deficits. Motor grossly within normal limits. Five out of 5 muscle strength in the arms and legs. Normal speech. PSYCHIATRIC: Appropriate mood and affect; insight and judgment normal. Data Data Last Documented VS Vital Signs Date Time Temp Pulse Resp B/P Pulse Ox O2 Delivery O2 Flow Rate FiO2 06/09/17 20:56 99 3.00 06/09/17 20:56 Nasal Cannula 06/09/17 19:06 97.7 79 22 143/73 Orders Iv Access Insert/Monitor (06/09/17 19:08) Complete Blood Count With Diff (06/09/17 19:08) Comprehensive Metabolic Panel (06/09/17 19:08) Prothrombin Time / Inr (Pt) (06/09/17 19:08) Act Partial Throm Time (Ptt) (06/09/17 19:08) Chest, Single Ap (06/09/17 ) Ct Brain W/O Iv Contrast(Rout) (06/09/17 ) Ct Cerv Spine W/O Contrast (06/09/17 ) Shoulder, Complete (>2vws) (06/09/17 ) Elbow, Complete (4 Vws) (06/09/17 ) Electrocardiogram (06/09/17 ) Hydromorphone Pf Inj (Dilaudid Pf Inj) (06/09/17 19:45) Pelvis, Ap Only (Routine) (06/09/17 ) Hip, Lat Only Wo Ap Pelvis (06/09/17 ) Fentanyl Inj (Fentanyl Inj) (06/09/17 20:30) Midazolam Inj (Versed Inj) (06/09/17 20:30) Naloxone Inj (Narcan Inj) (06/09/17 20:30) Flumazenil Inj (Romazicon Inj) (06/09/17 20:30) Fentanyl Inj (Fentanyl Inj) (06/09/17 20:47) Hip, Ap Only Wo Ap Pelvis (06/09/17 ) Ct Hip W/O Contrast (06/09/17 ) Immobilizer Knee 20 Inch (06/09/17 ) Admit Order (Ed Use Only) (06/09/17 23:15) Consult Orthopedic (06/09/17 ) Labs Laboratory Tests Test 06/09/17 06/09/17 19:30 22:20 Sodium Level 141 MEQ/L Potassium Level 3.2 MEQ/L Chloride Level 117 MEQ/L Carbon Dioxide Level 17.8 MEQ/L Anion Gap 6 MEQ/L Blood Urea Nitrogen 20 MG/DL Creatinine 1.26 MG/DL Estimat Glomerular Filtration 55 ML/MIN Rate Random Glucose 96 MG/DL Calcium Level 6.7 MG/DL Protein Corrected Calcium 7.5 MG/DL Total Bilirubin 0.5 MG/DL Aspartate Amino Transf 50 U/L (AST/SGOT) Alanine Aminotransferase 27 U/L (ALT/SGPT) Alkaline Phosphatase 66 U/L Total Protein 5.4 GM/DL Albumin 3.0 GM/DL Prothrombin Time 13.1 SEC Prothromb Time International 1.2 RATIO Ratio Activated Partial 22.7 SEC Thromboplast Time White Blood Count 6.9 TH/MM3 Red Blood Count 3.85 MIL/MM3 Hemoglobin 12.2 GM/DL Hematocrit 36.6 % Mean Corpuscular Volume 95.2 FL Mean Corpuscular Hemoglobin 31.8 PG Mean Corpuscular Hemoglobin 33.4 % Concent Red Cell Distribution Width 14.2 % Platelet Count 90 TH/MM3 Mean Platelet Volume 8.1 FL Neutrophils (%) (Auto) % Lymphocytes (%) (Auto) % Monocytes (%) (Auto) % Eosinophils (%) (Auto) % Basophils (%) (Auto) % Neutrophils # (Auto) TH/MM3 Lymphocytes # (Auto) TH/MM3 Monocytes # (Auto) TH/MM3 Eosinophils # (Auto) TH/MM3 Basophils # (Auto) TH/MM3 CBC Comment AUTO DIFF Differential Total Cells 100 Counted Neutrophils % (Manual) 61 % Band Neutrophils % 20 % Lymphocytes % 14 % Monocytes % 4 % Neutrophils # (Manual) 5.7 TH/MM3 Metamyelocytes 1 % Differential Comment FINAL DIFF MANUAL Platelet Estimate LOW Platelet Morphology Comment NORMAL Ovalocytes 1+ Acanthocytes OCC MDM Medical Record Reviewed: Yes Supervised Visit with CARLO: No Interpretation(s) post reduction xray shows successfull closed reduction. Critical Care Narrative CRITICAL CARE NOTE: With evaluation of the patient, labs, EKG, receipt of radiologic studies, administration of medications, reevaluation the patient and discussion of the patient with the admitting physicians, the total critical care time was [30] minutes. Time to perform other separately billable procedures was not included in the critical care time. WITHOUT PROMPT REDUCTION PATIENT COULD DEVELOP AVASCULAR NECROSIS Procedures Procedure Narrative After the risks and benefits were discussed the following procedure was performed: MODERATE SEDATION: The patient was placed on a furnace installer and pulse oximetry. An ambu bag and suction was immediately available at bedside. The patient was monitored by the nurse. Oxygen saturation, heart rate and blood pressure were monitored. Procedural sedation was acheived using [fentanyl 100 mcg and 10 mg versed] . The patient was observed until awake and alert. Procedural Sedation time in attendance was [45] minutes. patient did not become apneic but did become bradypneic, at which point narcan .8 was given, after which patient was verbally speaking, guarding his own airway and not requiring any assisted ventilations. CLOSED LEFT [place] HIP REDUCTION: 2 ASSISTANTS NEEDED FOR COUNTERTRACTION, WHILE I PROVIDED TRACTION ALONG WITH MANIPULATION TO REDUCE LEFT HIP WHICH WAS SUCCESSFULLY PERFORMED. Diagnosis Primary Impression: left hip dislocation s/p reduction Admitting Information Admitting Physician Requests: Observation Scripts Hydrocodone-Acetaminophen 10-325 mg Tab1 Tab PO Q4H PRN (PAIN SCALE 6 TO 10) # 20 TAB Prov:Everton Guillen MD 06/10/17 Lorazepam 1 Mg Tab1 Mg PO Q6HR PRN (for severe anxiety or dyspnea) #12 TAB Ref 0 Prov:Everton Guillen MD 06/10/17 Tr Rodriguez MD Jun 09, 2017 21:27
--- NOTE | 2017-06-09 21:40 | RADRPT ---
EXAM DATE/TIME: 06/09/2017 21:20 [facility] COMPARISON: PELVIS AP ONLY, June 09, 2017, 19:46. INDICATIONS : Post reduction. MEDICAL HISTORY : None. SURGICAL HISTORY : None. ENCOUNTER: Initial ACUITY: 1 day PAIN SCORE: Non-responsive. LOCATION: Left hip. FINDINGS: Left femoral head as been relocated into the hip socket. No fracture demonstrated. There is mild oste oarthritis. CONCLUSION: Interim reduction of the previously seen posterior/inferior dislocation of the left hip. No fracture demonstrated. Colton De La Cruz MD on June 09, 2017 at 21:38 Board Certified Radiologist. This report was verified electronically.
--- NOTE | 2017-06-09 22:09 | RADRPT ---
EXAM DATE/TIME: 06/09/2017 21:36 [facility] COMPARISON: No previous studies available for comparison. INDICATIONS : Fall, short of breath. MEDICAL HISTORY : None. SURGICAL HISTORY : None. ENCOUNTER: Initial ACUITY: 1 day PAIN SCORE: 0/10 LOCATION: Bilateral chest FINDINGS: Mild infiltrates seen in the left lung base. Lungs are otherwise clear. No pleural effusion/hemothora x seen. No evidence of pneumothorax. No acute bony abnormality demonstrated. There is an old, healed midshaft fracture of the left clavicl e. 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 CONCLUSION: Mild left base infiltrate. Colton De La Cruz MD on June 09, 2017 at 22:06 Board Certified Radiologist. This report was verified electronically.
--- NOTE | 2017-06-09 22:11 | RADRPT ---
EXAM DATE/TIME: 06/09/2017 21:37 [facility] COMPARISON: No previous studies available for comparison. INDICATIONS : Right shoulder, fall. MEDICAL HISTORY : None. SURGICAL HISTORY : None. ENCOUNTER: Initial ACUITY: 1 day PAIN SCORE: 0/10 LOCATION: Right shoulder FINDINGS: No fracture seen of the right shoulder. No subluxation. There is moderate acromioclavicular and sever e glenohumeral joint osteoarthritis. Radiographic appearance of the soft tissues within normal limits . CONCLUSION: Intact right shoulder. Moderate to severe degenerative changes as above. Colton De La Cruz MD on June 09, 2017 at 22:09 Board Certified Radiologist. This report was verified electronically.
--- NOTE | 2017-06-09 22:14 | RADRPT ---
EXAM DATE/TIME: 06/09/2017 21:42 [facility] COMPARISON: No previous studies available for comparison. INDICATIONS : Fall. MEDICAL HISTORY : None. SURGICAL HISTORY : None. ENCOUNTER: Initial ACUITY: 1 day PAIN SCORE: 0/10 LOCATION: Right elbow FINDINGS: No acute fracture or subluxation seen of the right elbow. No perceptible joint effusion. There is mild osteoarthritis, mostly humeral ulnar. Chronic heterotopic ossification seen focally, ad jacent to the medial epicondyle. CONCLUSION: Intact right elbow. Chronic/degenerative changes as above. Colton De La Cruz MD on June 09, 2017 at 22:12 Board Certified Radiologist. This report was verified electronically.
[2017-06-09 22:56] LABS: HEMATOCRIT 36.6 % (39.0-51.0); MEAN CELL VOLUME 95.2 FL (80.0-100.0); MEAN CORPUSCULAR HEMOGLOBIN 31.8 PG (27.0-34.0); MEAN CORPUSCULAR HGB CONC 33.4 % (32.0-36.0); PLATELET COUNT 90 TH/MM3 (150-450); RED BLOOD COUNT 3.85 MIL/MM3 (4.50-5.90); RED CELL DISTRIBUTION WIDTH 14.2 % (11.6-17.2); WHITE BLOOD COUNT 6.9 TH/MM3 (4.0-11.0)
--- NOTE | 2017-06-09 22:58 | RADRPT ---
EXAM DATE/TIME: 06/09/2017 22:33 [facility] COMPARISON: HIP LEFT AP ONLY WO AP PELVIS, June 09, 2017, 21:20. INDICATIONS : Post dislocated hip. RADIATION DOSE: 10.64 CTDIvol (mGy) MEDICAL HISTORY : Cardiovascular disease. Hypertension. SURGICAL HISTORY : Fusion, cervical. ENCOUNTER: Initial ACUITY: 1 day PAIN SCALE: 7/10 LOCATION: Left hip TECHNIQUE: Volumetric scanning of the hip was performed. Using automated exposure control and adjustment of the mA and/or kV according to patient size, radiation dose was kept as low as reasonably achievable to o btain optimal diagnostic quality images. DICOM format image data is available electronically for rev iew and comparison. FINDINGS: Patient is status post closed reduction of left hip joint dislocation. Femoral head is normally situa dionte in the acetabulum currently. No fractures are demonstrated. Really no significant effusion or syn ovitis seen either. There is mild osteoarthritis noted. Mild edema and swelling of the muscles of the left hip region, especially the adductor's. No percepti ble hematoma. No definite tear. CONCLUSION: 1. Intact and normally aligned left hip. 2. Adductor predominant muscle strain. 3. Mild left hip osteoarthritis. Colton De La Cruz MD on June 09, 2017 at 22:54 Board Certified Radiologist. This report was verified electronically.
[2017-06-09 23:01] LABS: HEMO FLAGS AUTO DIFF
[2017-06-09 23:05] LABS: APTT (PATIENT) 22.7 SEC (24.3-30.1); INTERNATIONAL NORMALIZED RATIO 1.2 RATIO; PROTHROMBIN TIME - PATIENT 13.1 SEC (9.8-11.6)
[2017-06-09] MEDS ORDERED: NALOXONE HCL 0.4 MG/ML AMP IV PRN (23:15)
[2017-06-09] MEDS ORDERED: SODIUM CHLORIDE 0.9% FLUSH 10 ML FLUSH IV FLUSH PRN (23:15)
[2017-06-09] MEDS ORDERED: HYDROmorphone HCL PF 1 MG/ML VIAL IV PUSH PRN (23:15)
[2017-06-09 23:30] VITALS: BP 128/68; PULSE 79; RESP 18; O2SAT 100
[2017-06-10] VITALS (8 sets, daily range): BP systolic 110–165; BP diastolic 60–91; PULSE 73–81; RESP 17–18; TEMP 96–98.1; O2SAT 94–98
--- NOTE | 2017-06-10 00:19 | EKG ---
Date Performed: 06/09/2017 Time Performed: 20:07:56 PTAGE: 86 years EKG: Sinus rhythm WITH FIRST DEGREE AV BLOCK MARKED LEFT AXIS DEVIATION INTRAVENTRICULAR CONDUCTION DELAY ABNORMAL ECG Compared to the PREVIOUS TRACING from 12/13/16, no significant change DOCTOR: Nathan Koch Interpretating Date/Time 06/10/2017 00:17:21
[2017-06-10 00:54] LABS: BANDS 20 % (0-6); METAMYELOCYTES 1 % (0-1); NEUTROPHIL # MANUAL DIFF 5.7 TH/MM3 (1.8-7.7); OVALOCYTES 1+ (NORMAL); PLATELET ESTIMATE SMEAR LOW (NORMAL); PLATELET MORPHOLOGY NORMAL (NORMAL); POLYS (SEG NEUTROPHILS) 61 % (16-70); SCAN/DIFF FINAL DIFF MANUAL; WBC DIFF SAMPLE 100
[2017-06-10 00:55] LABS: ACANTHOCYTES OCC (NORMAL)
[2017-06-10] MEDS ORDERED: LACTATED RINGER'S 1000 ML IV PRN (03:00)
[2017-06-10] MEDS ORDERED: CHLORHEXIDINE GLUCONATE 2 % 1 PACK (2 CLOTHS) TOPICAL PRN (03:00)
[2017-06-10] MEDS ORDERED: POVIDONE IODINE 5% (ANTISEPSIS KIT) 4 APPLICATIONS EACH NARE PRN (03:00)
[2017-06-10] MEDS ORDERED: INSULIN HUMAN REGULAR 1,000 UNITS/10 ML VIAL SQ PRN (03:00)
--- NOTE | 2017-06-10 04:08 | HHI.HP ---
HPI Service [facility] Primary Care Physician [facility] Admission Diagnosis left hip dislocation, s/p reduction Diagnoses: Chief Complaint: fall at home, Travel History International Travel<30 Days: No Contact w/Intl Traveler <30 Da: No Traveled to Known Affected Are: No History of Present Illness Written by DONNY Tirado acting as scribe for [Shahida] on 06/10/17 at 03: 47. 86 y/o male with a history of afib, spinal stenosis, neuropathy, hypotension, aortic stenosis, ckd, copd, diverticulosis, bph, sleep apne, crohn's, barretts esophagus and skin cancer presented to the ED after a fall at home. Patient states he was in the bathroom leaning against the sink and his legs did not feel normal. He states they just gave out and he fell on his right side. He states his left leg was caught between the door and counter and he could not straighten it. He did hit his head and had some bleeding due to the eliquis. He states he was on his back for 3 hours and he crawled his way to a phone and call evac. He denies any chest pain, sob, or dizziness prior to the fall. He did complain of nausea on Thursday and for the last week he has had diarrhea related to his Crohn's disease. Patient does live alone, and only has a friend that checks on him weekly. Review of Systems Except as stated in HPI: all other systems reviewed are Neg Past Family Social History Past Medical History afib spinal stenosis neuropathy hypotension aortic stenosis ckd copd diverticulosis bph sleep apnea crohns barretts esophagus skin ca melanoma Past Surgical History Skin cancer removal multiple [id number] Cataracts cholecystectomy 2009 Epidermal cyst removal 2007 cervical diskectomy 2004 Rotator cuff repair 2005 Appendectomy 194 Tonsillectomy 193 Reported Medications Reported Meds & Active Scripts Active Potassium Chloride ER (Potassium Chloride) 20 Meq Tab 40 Meq PO BID Reported Lorazepam 1 Mg Tab 1 Mg PO Q4H PRN Cyanocobalamin Inj (Cyanocobalamin) 1,000 Mcg/Ml Inj 1,000 Mcg IM MONTHLY 2 Days Terazosin (Terazosin HCl) 2 Mg Cap 2 Mg PO HS Cymbalta DR (Duloxetine HCl) 30 Mg Capdr 30 Mg PO DAILY Pantoprazole (Pantoprazole Sodium) 40 Mg Tab 40 Mg PO DAILY Biotin 1 Mg Cap 1 Mg PO Flecainide (Flecainide Acetate) 100 Mg Tab 100 Mg PO BID Eliquis (Apixaban) 5 Mg Tab 2.5 Mg PO BID Metamucil [facility] Fiber (Psyllium Hydrophilic Mucilloid) 58.12 % Pow usally takes 2-4tsp prn Fluticasone Nasal [place] 50 Mcg/Act Naspr 50 Mcg EACH NARE BID 50 mcg/spray Claritin (Loratadine) 10 Mg Cap 10 Mg PO DAILY Fish Oil (Dalzell-3 Fatty Acids) 1,000 Mg Cap Vitamin D3 (Cholecalciferol) 400 Unit Cap 400 Units PO DAILY Calcium Carbonate 1,500 Mg Tab 1,500 Mg PO BID 1,500 mg calcium carbonate (600 mg elemental calcium) Allergies: Coded Allergies: sulfamethoxazole (Unverified Allergy, Severe, 06/09/17) trimethoprim (Unverified Allergy, Severe, 06/09/17) penicillin G (Unverified Allergy, Intermediate, 06/09/17) Active Ordered Medications Current Medications Medications (Trade) Dose Ordered Sig/Jm Route Start Time Stop Time Status Last Admin (Romazicon Inj) 0.5 mg Q1M PRN IV PUSH 06/09/17 20:30 (NS Flush) 2 ml UNSCH PRN IV FLUSH 06/09/17 23:15 (NS Flush) 2 ml BID IV FLUSH 06/10/17 09:00 (Narcan Inj) 0.4 mg UNSCH PRN IV 06/09/17 23:15 Hydromorphone HCl 0.2 mg 0.2 mg Q4H PRN IV PUSH 06/09/17 23:15 (Lr 1000 ml Inj) 1,000 ml @ 30 mls/hr Q24H PRN IV 06/10/17 03:00 06/13/17 02:59 Family History Mom: Throat cancer Sister: Thyroid cancer Social History Tobacco use: 3 PPD for 29 years, quit 1983 Alcohol use: Denies Patient lives alone and still drives. Physical Exam Vital Signs Vital Signs Date Time Temp Pulse Resp B/P Pulse Ox O2 Delivery O2 Flow Rate FiO2 06/10/17 01:49 76 113/62 97 Nasal Cannula 2.5 06/09/17 23:30 79 18 128/68 100 Nasal Cannula 2.5 06/09/17 20:56 99 3.00 06/09/17 20:56 99 06/09/17 20:56 99 Nasal Cannula 3.00 06/09/17 19:06 97.7 79 22 143/73 98 Physical Exam GENERAL: This is a well-nourished, well-developed patient, in no apparent distress. SKIN: No rashes, ecchymoses or lesions. Cool and dry. HEAD: Atraumatic. Normocephalic. EYES: Pupils equal round and reactive. ENT: Nose without bleeding, purulent drainage or septal hematoma. Airway patent. NECK: Trachea midline. No JVD or lymphadenopathy. Supple, nontender, no meningeal signs. CARDIOVASCULAR: Regular rate and rhythm without murmurs, gallops, or rubs. RESPIRATORY: Clear to auscultation. Breath sounds equal bilaterally. No wheezes , rales, or rhonchi. GASTROINTESTINAL: Abdomen soft, non-tender, nondistended. No hepato-splenomegaly , or palpable masses. No guarding. MUSCULOSKELETAL: Extremities without clubbing, cyanosis, or edema. Left hip tenderness. CKS in place. No calf tenderness. NEUROLOGICAL: Awake and alert. Motor and sensory grossly within normal limits. Normal speech. Laboratory Laboratory Tests Test 06/09/17 06/09/17 19:30 22:20 Sodium Level 141 Potassium Level 3.2 Chloride Level 117 Carbon Dioxide Level 17.8 Anion Gap 6 Blood Urea Nitrogen 20 Creatinine 1.26 Estimat Glomerular Filtration 55 Rate Random Glucose 96 Calcium Level 6.7 Protein Corrected Calcium 7.5 Total Bilirubin 0.5 Aspartate Amino Transf 50 (AST/SGOT) Alanine Aminotransferase 27 (ALT/SGPT) Alkaline Phosphatase 66 Total Protein 5.4 Albumin 3.0 Prothrombin Time 13.1 Prothromb Time International 1.2 Ratio Activated Partial 22.7 Thromboplast Time White Blood Count 6.9 Red Blood Count 3.85 Hemoglobin 12.2 Hematocrit 36.6 Mean Corpuscular Volume 95.2 Mean Corpuscular Hemoglobin 31.8 Mean Corpuscular Hemoglobin 33.4 Concent Red Cell Distribution Width 14.2 Platelet Count 90 Mean Platelet Volume 8.1 Neutrophils (%) (Auto) Lymphocytes (%) (Auto) Monocytes (%) (Auto) Eosinophils (%) (Auto) Basophils (%) (Auto) Neutrophils # (Auto) Lymphocytes # (Auto) Monocytes # (Auto) Eosinophils # (Auto) Basophils # (Auto) CBC Comment AUTO DIFF Differential Total Cells 100 Counted Neutrophils % (Manual) 61 Band Neutrophils % 20 Lymphocytes % 14 Monocytes % 4 Neutrophils # (Manual) 5.7 Metamyelocytes 1 Differential Comment FINAL DIFF MANUAL Platelet Estimate LOW Platelet Morphology Comment NORMAL Ovalocytes 1+ Acanthocytes OCC Result Diagram: 06/09/17221906/09/17 1930 Imaging Last Impressions Shoulder X-Ray 06/09/17 0000 Signed Impressions: Service Date/Time: Friday, June 09, 2017 21:37 - CONCLUSION: Intact right shoulder. Moderate to severe degenerative changes as above. Colton De La Cruz MD Pelvis X-Ray 06/09/17 0000 Signed Impressions: Service Date/Time: Friday, June 09, 2017 19:46 - CONCLUSION: Dislocated left hip. No fracture demonstrated. Colton De La Cruz MD Lower Extremity CT 06/09/17 0000 Signed Impressions: Service Date/Time: Friday, June 09, 2017 22:33 - CONCLUSION: 1. Intact and normally aligned left hip. 2. Adductor predominant muscle strain. 3. Mild left hip osteoarthritis. Colton De La Cruz MD Hip X-Ray 06/09/17 0000 Signed Impressions: Service Date/Time: Friday, June 09, 2017 21:20 - CONCLUSION: Interim reduction of the previously seen posterior/inferior dislocation of the left hip. No fracture demonstrated. Colton De La Cruz MD Head CT 06/09/17 0000 Signed Impressions: Service Date/Time: Friday, June 09, 2017 20:16 - CONCLUSION: Noncontrast head CT is normal for age. Colton De La Cruz MD Elbow X-Ray 06/09/17 0000 Signed Impressions: Service Date/Time: Friday, June 09, 2017 21:42 - CONCLUSION: Intact right elbow. Chronic/degenerative changes as above. Colton De La Cruz MD Chest X-Ray 06/09/17 0000 Signed Impressions: Service Date/Time: Friday, June 09, 2017 21:36 - CONCLUSION: Mild left base infiltrate. Colton De La Cruz MD Cervical Spine CT 06/09/17 0000 Signed Impressions: Service Date/Time: Friday, June 09, 2017 20:16 - CONCLUSION: 1. No fracture or subluxation of the cervical spine. 2. Moderate degenerative changes at C3/ C4 with mild bilateral foraminal stenosis. 3. Mild degenerative changes at C7/T1 without evidence of foraminal or spinal stenosis. 4. Solid-appearing fusion without fracture or acute complication from C4/C5 through C6/C7. Colton De La Cruz MD Assessment and Plan Problem List: (1) Hip dislocation, left ICD Code: S73.005A Status: Acute (2) Afib ICD Code: I48.91 Status: Chronic Assessment and Plan 86 y/o male with a history of afib, spinal stenosis, neuropathy, hypotension, aortic stenosis, ckd, copd, diverticulosis, bph, sleep apne, crohn's, barretts esophagus and skin cancer presented to the ED after a fall at home. Left hip dislocation, s/p reduction in ED Hip x ray reviewed and shows posterior and inferior left hip dislocation -Consult Ortho, Dr. Rush will see the patient -Cont CKS -pain management with IV Dilaudid -NPO Afib, chronic -monitor tele -Hold Eliquis now for possible surgery -Will reorder home medications when med rec is updated DVT prophylaxis: SCDs, chemical prophylaxis per ortho This note was transcribed by new [Jeny Montejo]. I, Dr. Laurie Pinedo personally performed the history, physical exam, and medical decision making; and confirmed the accuracy of the information in the transcribed note. Authenticated by Dr. Laurie Pinedo on 06/10/17 at 03:47. Discussed Condition With Patient and RN Physician Certification 2 Midnight Certification Type: Admission for Inpatient Services Order for Inpatient Services The services are ordered in accordance with Medicare regulations or non- Medicare payer requirements, as applicable. In the case of services not specified as inpatient-only, they are appropriately provided as inpatient services in accordance with the 2-midnight benchmark. Estimated LOS (days): 3 days is the estimated time the patient will need to remain in the hospital, assuming treatment plan goals are met and no additional complications. Post-Hospital Plan: Not yet determined Problem Qualifiers (1) Hip dislocation, left: Qualified Code: S73.005A - Dislocation of left hip, initial encounter Jeny Montejo Jun 10, 2017 04:08 Laurie Pinedo MD Jun 10, 2017 07:33
[2017-06-10] MEDS ORDERED: LORazepam 1 MG TAB PO PRN (09:00)
[2017-06-10] MEDS ORDERED: SENNOSIDES 8.6 MG TAB PO PRN (09:00)
[2017-06-10] MEDS: SODIUM CHLORIDE 0.9% FLUSH 10 ML FLUSH IV FLUSH SCH ×2 (09:00→20:52)
[2017-06-10] MEDS ORDERED: ACETAMINOPHEN/HYDROcodone 325 MG/5 MG TAB PO PRN (09:00)
[2017-06-10] MEDS ORDERED: ONDANSETRON HCL 4 MG/2 ML VIAL IVP PRN (09:00)
[2017-06-10] MEDS: FLUTICASONE PROPIONATE 50 MCG/ACT 16 GM NASAL SPRAY EACH NARE SCH ×2 (09:00→20:50)
[2017-06-10] MEDS ORDERED: LACTULOSE SYRUP 20 GM/30 ML CUP PO PRN (09:00)
[2017-06-10] MEDS ORDERED: ACETAMINOPHEN 325 MG TAB PO PRN ×2 (09:00)
[2017-06-10 10:07] LABS: AUTOMATED NEUTROPHIL # 2.2 TH/MM3 (1.8-7.7); BASOPHIL % 0.6 % (0.0-2.0); EOSINOPHIL # 0.1 TH/MM3 (0-0.4); EOSINOPHIL % 2.7 % (0.0-4.0); HEMATOCRIT 35.5 % (39.0-51.0); HEMO FLAGS DIFF FINAL; LYMPH % 19.3 % (9.0-44.0); LYMPHOCYTE # 0.6 TH/MM3 (1.0-4.8); MEAN CELL VOLUME 94.4 FL (80.0-100.0); MEAN CORPUSCULAR HEMOGLOBIN 32.5 PG (27.0-34.0); MEAN CORPUSCULAR HGB CONC 34.4 % (32.0-36.0); MONO % 12.9 % (0.0-8.0); NEUT % 64.5 % (16.0-70.0); PLATELET COUNT 155 TH/MM3 (150-450); RED BLOOD COUNT 3.76 MIL/MM3 (4.50-5.90); WHITE BLOOD COUNT 3.4 TH/MM3 (4.0-11.0)
--- NOTE | 2017-06-10 10:11 | MB ---
cc: CAROLINABASSAM DATE OF CONSULTATION 06/10/2017 DATE OF ADMISSION 06/09/2017 REASON FOR CONSULTATION Left hip dislocation. CONSULTING PHYSICIAN Dr. Guillen PUNEET Livingston is an 86-year-old male who lives at home. He lost his balance. He was in is bathroom leaning against the sink. He states that his legs gave out him. He fell. He got caught between the door and the counter. He had immediate left hip pain and deformity. He had difficulty moving and was stuck there for approximately three hours. He eventually crawled his way to the pone. He presented to the emergency rooms via [facility]. He presented to the emergency room where x-rays revealed a left hip dislocation. He is currently awake and alert on the orthopedic floor. He is sore in both legs. He had initially presented to the emergency room where x-rays revealed a left hip dislocation. He underwent closed reduction in the emergency department. His hip is feeling much better after he had reduction. PAST MEDICAL HISTORY ILLNESSES 1. Atrial fibrillation 2. Spinal stenosis 3. Peripheral neuropathy 4. Aortic stenosis 5. COPD 6. BPH 7. Sleep apnea 8. Wellington's esophagus 9. Melanoma SURGERIES 1. Multiple skin cancer excisions 2. Cataracts 3. Cholecystectomy 4. Cervical diskectomy 5. Rotator cuff repair 6. Appendectomy in 03/02 MEDICATIONS Include: 1. Potassium 2. Lorazepam 3. Cyanocobalamin 4. Cymbalta 5. Terazosin 6. Pantoprazole 7. Biotin 8. Eliquis 9. Fluconazole 10. Claritin 11. Vitamin D 12. Calcium carbonate ALLERGIES SULFA AND PENICILLINS FAMILY HISTORY Positive for throat cancer in his mother and sister. SOCIAL HISTORY The patient quit smoking in 1983. He denies alcohol or drug use. He lives alone. REVIEW OF SYSTEMS The patient denies headache, visual changes, neck pain, chest pain, shortness of breath, abdominal pain, nausea, vomiting or recent weight loss. He complains of mild left hip pain. He also has pain in is right thigh. PHYSICAL EXAMINATION The patient is a pleasant 86-hour male in no acute distress. He is awake and alert. He is alert and x3. He is thin, but appears well-developed and well-nourished. VITAL SIGNS: Temperature 96.6, pulse 74, respirations 18, blood pressure 122/68, O2 sat 95% on two liters nasal cannula. HEAD: The patient is normocephalic. EYES: Pupils are equal. NECK: Soft and nontender. Trachea is midline. ABDOMEN: Soft, nontender, and nondistended. EXTREMITIES: Examination of the bilateral upper extremities reveals no pain with shoulder, elbow or wrist motion. He has intact sensation in all fingers. She has good cap refill in all fingers. Skin is intact in both hands. Biochemistry Specialist strength is +5. He does have some tenderness along his right shoulder. He does have a bruise on the right shoulder. Examination of the left leg reveals minimal pain with gentle hip rotation. He has no tenderness around his knee, tibia or ankle. Skin is intact. Dorsalis pedis pulses are palpable. Examination of the right leg reveals diffuse tenderness along his quadriceps and hamstrings muscles. He has minimal pain with gentle hip, knee or ankle motion. Skin is intact. Dorsalis pedis pulse is palpable. He is able to actively lift his leg off the bed with only mild discomfort. X-RAYS X-rays of left hip were reviewed. The patient had initially had a left hip dislocation. Postreduction x-rays and CT scan revealed a hip that is concentrically reduced. No fracture is noted. IMPRESSION 1. Left hip dislocation status post closed reduction. 2. Aortic stenosis 3. Peripheral neuropathy 4. Atrial fibrillation PLAN Treatment options were discussed with the patient. At this point, I would recommend conservative treatment. He should continue wearing a knee immobilizer for six weeks. He will need to follow posterior precautions. He may weight-bear as tolerated on the bilateral lower extremities. All questions were answered. He may follow up in the office as needed. A mid-level provider in my office, nurse practitioner or PA, may see this patient on a follow-up basis and continue to implement the objective of this plan including: Starting or adjusting medications, injections of muscle, tendon, bursa or joints, cast application, orthotic or brace application, physical therapy, further radiographic studies including x-ray, MRI, CT, ultrasounds or bone scan, vascular studies, neurologic studies, or other specialist consultations, and proceeding with surgical management as appropriate. MD GARRETT Bowers/BEVERLY /9:37 AM /9:57 AM
[2017-06-10] MEDS: LORATADINE 10 MG TAB PO SCH (10:24)
[2017-06-10] MEDS: DULoxetine HCl DR 30 MG CAP PO SCH (10:25)
[2017-06-10] MEDS: CHOLECALCIFEROL (VIT D3) 400 UNIT TAB PO SCH (10:25)
[2017-06-10] MEDS: POTASSIUM CHLORIDE 20 MEQ CONTROLLED RELEASE TAB PO SCH ×2 (10:25→20:51)
[2017-06-10] MEDS: CALCIUM CARBONATE 1.25 GM (CA 500 MG) TAB PO SCH ×2 (10:25→20:51)
[2017-06-10] MEDS: FLECAINIDE ACETATE 100 MG TAB PO SCH ×2 (10:25→20:52)
[2017-06-10] MEDS: DOCUSATE SODIUM 50 MG/SENNA 8.6 MG TAB PO SCH ×2 (10:25→20:52)
[2017-06-10] MEDS: PANTOPRAZOLE SOD 40 MG DELAYED RELEASE TAB PO SCH (10:25)
--- NOTE | 2017-06-10 11:20 | HHI.PR ---
Subjective Remarks Follow-up left hip dislocation. Complaining of pain left hip and right shoulder. Seen by orthopedic medical management. Discussed with RN Objective Vitals Vital Signs Date Time Temp Pulse Resp B/P Pulse Ox O2 Delivery O2 Flow Rate FiO2 06/10/17 08:00 96.6 74 18 122/68 95 06/10/17 03:00 96.4 81 18 165/91 98 06/10/17 01:49 76 113/62 97 Nasal Cannula 2.5 06/09/17 23:30 79 18 128/68 100 Nasal Cannula 2.5 06/09/17 20:56 99 3.00 06/09/17 20:56 99 06/09/17 20:56 99 Nasal Cannula 3.00 06/09/17 19:06 97.7 79 22 143/73 98 Result Diagram: 06/10/17 [id number]/[id number]/[id number] Imaging Last Impressions Shoulder X-Ray 06/09/17 0000 Signed Impressions: Service Date/Time: Friday, June 09, 2017 21:37 - CONCLUSION: Intact right shoulder. Moderate to severe degenerative changes as above. Colton De La Cruz MD Pelvis X-Ray 06/09/17 0000 Signed Impressions: Service Date/Time: Friday, June 09, 2017 19:46 - CONCLUSION: Dislocated left hip. No fracture demonstrated. Colton De La Cruz MD Lower Extremity CT 06/09/17 0000 Signed Impressions: Service Date/Time: Friday, June 09, 2017 22:33 - CONCLUSION: 1. Intact and normally aligned left hip. 2. Adductor predominant muscle strain. 3. Mild left hip osteoarthritis. Coltno De La Cruz MD Hip X-Ray 06/09/17 0000 Signed Impressions: Service Date/Time: Friday, June 09, 2017 21:20 - CONCLUSION: Interim reduction of the previously seen posterior/inferior dislocation of the left hip. No fracture demonstrated. Colton De La Cruz MD Head CT 06/09/17 0000 Signed Impressions: Service Date/Time: Friday, June 09, 2017 20:16 - CONCLUSION: Noncontrast head CT is normal for age. Colton De La Cruz MD Elbow X-Ray 06/09/17 0000 Signed Impressions: Service Date/Time: Friday, June 09, 2017 21:42 - CONCLUSION: Intact right elbow. Chronic/degenerative changes as above. Colton De La Cruz MD Chest X-Ray 06/09/17 0000 Signed Impressions: Service Date/Time: Friday, June 09, 2017 21:36 - CONCLUSION: Mild left base infiltrate. Colton De La Cruz MD Cervical Spine CT 06/09/17 0000 Signed Impressions: Service Date/Time: Friday, June 09, 2017 20:16 - CONCLUSION: 1. No fracture or subluxation of the cervical spine. 2. Moderate degenerative changes at C3/ C4 with mild bilateral foraminal stenosis. 3. Mild degenerative changes at C7/T1 without evidence of foraminal or spinal stenosis. 4. Solid-appearing fusion without fracture or acute complication from C4/C5 through C6/C7. Colton De La Cruz MD Objective Remarks GENERAL: Well-developed, well-nourished in no distress SKIN: Warm and dry. Abrasion bilateral elbows HEAD: Atraumatic. Normocephalic. EYES: Pupils equal and round. No scleral icterus. No injection or drainage. ENT: No nasal bleeding or discharge. Mucous membranes pink and moist. NECK: Trachea midline. No JVD. CARDIOVASCULAR: Regular rate and rhythm. RESPIRATORY: No accessory muscle use. Clear to auscultation. Breath sounds equal bilaterally. GASTROINTESTINAL: Abdomen soft, non-tender, nondistended MUSCULOSKELETAL: Extremities without clubbing, cyanosis, or edema. No obvious deformities. NEUROLOGICAL: Awake and alert. No obvious cranial nerve deficits. Motor grossly within normal limits. Five out of 5 muscle strength in the arms and legs. Normal speech. Tender right shoulder and left hip PSYCHIATRIC: Appropriate mood and affect; insight and judgment normal. Procedures Closed reduction left hip A/P Problem List: (1) Hip dislocation, left ICD Code: S73.005A Status: Acute (2) Afib ICD Code: I48.91 Status: Chronic Assessment and Plan 86 y/o male with a history of afib, spinal stenosis, neuropathy, hypotension, aortic stenosis, ckd, copd, diverticulosis, bph, sleep apnea, crohn's, barretts esophagus and skin cancer presented to the ED after a fall at home. Left hip dislocation, s/p reduction in ED Hip x ray reviewed and shows posterior and inferior left hip dislocation -Consult Ortho, Dr. Rush recommends medical management. Weightbearing as tolerated, pain management with Lortab and IV Dilaudid -Cont CKS -Will need rehabilitation Closed head injury. Head CT without acute findings. Stable. Neurochecks Afib, chronic -monitor tele -Restart Eliquis and flecainide Hypokalemia with history of chronic kidney disease. Restart home potassium and check magnesium Thrombocytopenia. Improving. Monitor Mild AST elevation. Monitor DVT prophylaxis: SCDs, eliquis Discharge Planning Will need rehabilitation Problem Qualifiers (1) Hip dislocation, left: Qualified Code: S73.005A - Dislocation of left hip, initial encounter Everton Guillen MD Jun 10, 2017 11:20
--- NOTE | 2017-06-10 11:21 | HHI.DCPOC ---
Discharge Care Plan Diagnosis: (1) Hip dislocation, left Your Health Problems Are: Difficulty with ADL Exercise Tolerance Goals to Promote Your Health * To prevent worsening of your condition and complications * To maintain your health at the optimal level Directions to Meet Your Goals Take your medications as prescribed Follow your dietary instruction Follow activity as directed Keep your appointments as scheduled Take your immunizations and boosters as scheduled If your symptoms worsen call your PCP, if no PCP go to Urgent Care Center or Emergency Room Smoking is Dangerous to Your Health. Avoid second hand smoke Call the 24-hour hour crisis hotline for domestic abuse at Everton Guillen MD Jun 10, 2017 11:21
[2017-06-10] MEDS ORDERED: LORA1TAB12 PO (11:23)
[2017-06-10] MEDS ORDERED: HYDR-3583 PO (11:23)
[2017-06-10] MEDS ORDERED: PILL SPLITTER OTHER PRN (11:30)
[2017-06-10] MEDS: ACETAMINOPHEN/HYDROcodone 325 MG/10 MG TAB PO PRN (18:18)
[2017-06-10] MEDS: TERAZOSIN HCL 1 MG CAP PO SCH (20:51)
[2017-06-10] MEDS: APIXABAN 5 MG TABLET PO SCH (20:51)
[2017-06-10] MEDS ORDERED: clonazePAM 1 MG TAB PO ONE (21:30)
[2017-06-11] VITALS (8 sets, daily range): BP systolic 101–133; BP diastolic 55–74; PULSE 71–83; RESP 16; TEMP 97.8–98.8; O2SAT 94–97
[2017-06-11] MEDS: ACETAMINOPHEN/HYDROcodone 325 MG/10 MG TAB PO PRN ×3 (04:46→17:15)
[2017-06-11] MEDS: FLECAINIDE ACETATE 100 MG TAB PO SCH ×2 (07:28→23:05)
[2017-06-11] MEDS: PANTOPRAZOLE SOD 40 MG DELAYED RELEASE TAB PO SCH (07:28)
[2017-06-11] MEDS: DULoxetine HCl DR 30 MG CAP PO SCH (07:29)
[2017-06-11] MEDS: CALCIUM CARBONATE 1.25 GM (CA 500 MG) TAB PO SCH ×2 (07:29→23:05)
[2017-06-11] MEDS: APIXABAN 5 MG TABLET PO SCH ×2 (07:29→23:07)
[2017-06-11] MEDS: CHOLECALCIFEROL (VIT D3) 400 UNIT TAB PO SCH (07:29)
[2017-06-11] MEDS: POTASSIUM CHLORIDE 20 MEQ CONTROLLED RELEASE TAB PO SCH ×2 (07:29→23:05)
[2017-06-11] MEDS: DOCUSATE SODIUM 50 MG/SENNA 8.6 MG TAB PO SCH ×2 (07:30→23:08)
[2017-06-11] MEDS: LORATADINE 10 MG TAB PO SCH (07:30)
[2017-06-11] MEDS: FLUTICASONE PROPIONATE 50 MCG/ACT 16 GM NASAL SPRAY EACH NARE SCH ×2 (07:33→23:07)
[2017-06-11] MEDS: SODIUM CHLORIDE 0.9% FLUSH 10 ML FLUSH IV FLUSH SCH ×2 (07:33→23:07)
--- NOTE | 2017-06-11 07:37 | PD.ORT.PN ---
Subjective Subjective Remarks s/p left hip dislocation with reduction - day 2 -reports pain but relieved with [place] Objective Vitals Vital Signs Date Time Temp Pulse Resp B/P Pulse Ox O2 Delivery O2 Flow Rate FiO2 06/11/17 04:00 98.8 76 16 107/61 95 06/11/17 00:00 98.3 71 16 101/55 94 06/10/17 19:25 77 06/10/17 19:00 96.0 74 17 113/69 96 06/10/17 16:00 98.1 73 18 110/69 97 06/10/17 12:00 97.9 80 18 137/60 94 06/10/17 10:20 78 06/10/17 08:00 96.6 74 18 122/68 95 I/O 06/10/17 06/10/17 06/10/17 06/11/17 06/11/17 06/11/17 07:00 15:00 23:00 07:00 15:00 23:00 Intake Total 600 ml 480 ml Output Total 350 ml Balance 600 ml 130 ml Intake Oral 600 ml 480 ml Output Urine Total 350 ml # Voids 3 # Bowel Movements 0 0 Result Diagram: 06/10/1771606/09/171929 Objective Remarks LLE: +knee brace. nvi. slight discomfort with motion Assessment & Plan Assessment and Plan 1) Left Hip Dislocation s/p reduction - day 2 -WBAT -knee brace at all times -posterior hip precautions -CM for rehab placement -ortho cleared for DC to rehab when arrangements made -f/u [facility] or [facility] in 2 weeks Carmelo Gayle Jun 11, 2017 07:37
[2017-06-11] MEDS: MAGNESIUM HYDROXIDE SUSP 30 ML CUP PO PRN ×2 (08:00→11:51)
[2017-06-11 08:08] LABS: ALKALINE PHOSPHATASE 146 U/L (45-117); ALT (GPT) 601 U/L (12-78); ANION GAP 7 MEQ/L (5-15); AST (GOT) 501 U/L (15-37); BICARBONATE 23.5 MEQ/L (21.0-32.0); BLOOD UREA NITROGEN 24 MG/DL (7-18); CHLORIDE 105 MEQ/L (98-107); GLOMERULAR FILTRATION RATE 43 ML/MIN (>89); MAGNESIUM 1.6 MG/DL (1.5-2.5); SODIUM (NA) 135 MEQ/L (136-145); TOTAL BILIRUBIN ADULT 1.3 MG/DL (0.2-1.0)
--- NOTE | 2017-06-11 14:59 | HHI.PR ---
Subjective Remarks Discharge was planned, but his held for significantly elevated LFTs on this mornings labs. Patient is not aware of any prior episode of acute hepatitis or liver failure. No nausea, vomiting, diarrhea, or abdominal pains reported. He has a history of cholecystectomy. Objective Vital Signs Date Time Temp Pulse Resp B/P Pulse Ox O2 Delivery O2 Flow Rate FiO2 06/11/17 11:47 97.9 76 16 123/73 95 06/11/17 10:12 78 06/11/17 08:00 97.8 78 16 109/67 94 06/11/17 04:00 98.8 76 16 107/61 95 06/11/17 00:00 98.3 71 16 101/55 94 06/10/17 19:25 77 06/10/17 19:00 96.0 74 17 113/69 96 06/10/17 16:00 98.1 73 18 110/69 97 I/O 06/10/17 06/10/17 06/10/17 06/11/17 06/11/17 06/11/17 07:00 15:00 23:00 07:00 15:00 23:00 Intake Total 600 ml 480 ml Output Total 350 ml Balance 600 ml 130 ml Intake Oral 600 ml 480 ml Output Urine Total 350 ml # Voids 3 # Bowel Movements 0 0 Result Diagram: 06/10/17 0717 06/11/17 0610 Objective Remarks GENERAL: NAD, A&Ox3 HEAD: Normocephalic. NECK: Supple, trachea midline. No lymphadenopathy. EYES: No scleral icterus. No injection or drainage. CARDIOVASCULAR: Regular rate and rhythm without murmurs, gallops, or rubs. RESPIRATORY: Breath sounds equal bilaterally. No accessory muscle use. GASTROINTESTINAL: Abdomen soft, non-tender, nondistended. MUSCULOSKELETAL: No cyanosis, or edema. SKIN: Warm and dry. No jaundice NEURO: No focal neurological deficitis. A/P Problem List: (1) Hip dislocation, left ICD Code: S73.005A (2) Near syncope ICD Code: R55 (3) Acute hepatitis ICD Code: B17.9 Assessment and Plan Assessment and plan 86-year-old male admitted with a left hip dislocation, status post left hip reduction. Acute hepatitis present today. We'll follow LFTs to ensure that this is not a sign of acute liver failure. MRCP to evaluate structures. Acute hepatitis versus acute liver failure MRCP Follow LFTs Discharge held Left hip dislocation Plan to discharge to [facility] facility with rehabilitation Orthopedics following As needed pain treatments Afib chronic Follow on telemetry Plan to resume Eliquis, blood thinners will need to be held the patient is in liver failure Spinal stenosis History of neuropathy Aortic stenosis Chronic kidney disease COPD Diverticulosis Sleep apnea History of Crohn's disease Barretts esophagus No exacerbations of these conditions, follow clinically. DVT prophylaxis SCDs Problem Qualifiers (1) Hip dislocation, left: Qualified Code: S73.005A - Dislocation of left hip, initial encounter Saul Schaefer MD Jun 11, 2017 14:59
[2017-06-11] MEDS ORDERED: clonazePAM 1 MG TAB PO SCH (22:30)
[2017-06-11] MEDS: TERAZOSIN HCL 1 MG CAP PO SCH (23:05)
[2017-06-12 00:14] VITALS: BP 138/75; PULSE 90; RESP 16; TEMP 99; O2SAT 98
[2017-06-12 04:00] VITALS: BP 107/65; PULSE 72; RESP 17; TEMP 96.7; O2SAT 97
[2017-06-12 06:58] VITALS: PULSE 70
[2017-06-12] MEDS: CALCIUM CARBONATE 1.25 GM (CA 500 MG) TAB PO SCH (07:41)
[2017-06-12] MEDS: APIXABAN 5 MG TABLET PO SCH (07:41)
[2017-06-12] MEDS: DULoxetine HCl DR 30 MG CAP PO SCH (07:41)
[2017-06-12] MEDS: PANTOPRAZOLE SOD 40 MG DELAYED RELEASE TAB PO SCH (07:41)
[2017-06-12] MEDS: POTASSIUM CHLORIDE 20 MEQ CONTROLLED RELEASE TAB PO SCH (07:42)
[2017-06-12] MEDS: DOCUSATE SODIUM 50 MG/SENNA 8.6 MG TAB PO SCH (07:42)
[2017-06-12] MEDS: FLECAINIDE ACETATE 100 MG TAB PO SCH (07:42)
[2017-06-12] MEDS: LORATADINE 10 MG TAB PO SCH (07:42)
[2017-06-12] MEDS: CHOLECALCIFEROL (VIT D3) 400 UNIT TAB PO SCH (07:42)
[2017-06-12] MEDS: SODIUM CHLORIDE 0.9% FLUSH 10 ML FLUSH IV FLUSH SCH (07:44)
[2017-06-12] MEDS: FLUTICASONE PROPIONATE 50 MCG/ACT 16 GM NASAL SPRAY EACH NARE SCH (07:44)
[2017-06-12 08:00] VITALS: BP 109/70; PULSE 106; RESP 16; TEMP 96.7; O2SAT 93
[2017-06-12 08:31] LABS: AUTOMATED NEUTROPHIL # 3.1 TH/MM3 (1.8-7.7); BASOPHIL % 0.4 % (0.0-2.0); EOSINOPHIL # 0.2 TH/MM3 (0-0.4); EOSINOPHIL % 4.2 % (0.0-4.0); HEMATOCRIT 33.2 % (39.0-51.0); HEMO FLAGS DIFF FINAL; LYMPHOCYTE # 1.4 TH/MM3 (1.0-4.8); MEAN CELL VOLUME 94.9 FL (80.0-100.0); MEAN CORPUSCULAR HEMOGLOBIN 32.5 PG (27.0-34.0); MEAN CORPUSCULAR HGB CONC 34.2 % (32.0-36.0); MONO % 9.5 % (0.0-8.0); NEUT % 59.9 % (16.0-70.0); PLATELET COUNT 149 TH/MM3 (150-450); RED BLOOD COUNT 3.49 MIL/MM3 (4.50-5.90); WHITE BLOOD COUNT 5.2 TH/MM3 (4.0-11.0)
[2017-06-12 08:47] LABS: ANION GAP 6 MEQ/L (5-15); AST (GOT) 213 U/L (15-37); BICARBONATE 25.4 MEQ/L (21.0-32.0); BLOOD UREA NITROGEN 16 MG/DL (7-18); CHLORIDE 104 MEQ/L (98-107); GLOMERULAR FILTRATION RATE 48 ML/MIN (>89); POTASSIUM 4.4 MEQ/L (3.5-5.1); SODIUM (NA) 135 MEQ/L (136-145)
[2017-06-12 08:48] LABS: ALT (GPT) 376 U/L (12-78)
[2017-06-12 08:50] LABS: ALKALINE PHOSPHATASE 130 U/L (45-117); TOTAL BILIRUBIN ADULT 0.9 MG/DL (0.2-1.0)
[2017-06-12 08:56] VITALS: PULSE 69
--- NOTE | 2017-06-12 09:39 | PD.ORT.PN ---
Subjective Subjective Remarks s/p left hip dislocation with reduction - day 3 -reports pain but relieved with [place]. out of bed yesterday with walker Objective Vitals Vital Signs Date Time Temp Pulse Resp B/P Pulse Ox O2 Delivery O2 Flow Rate FiO2 06/12/17 08:56 69 06/12/17 07:37 Room Air 06/12/17 06:58 70 06/12/17 04:00 96.7 72 17 107/65 97 06/12/17 00:14 99.0 90 16 138/75 98 06/11/17 20:00 97.8 83 16 121/69 97 06/11/17 19:40 81 06/11/17 18:45 Room Air 06/11/17 17:13 98.1 78 16 133/74 95 06/11/17 11:47 97.9 76 16 123/73 95 06/11/17 10:12 78 I/O 06/11/17 06/11/17 06/11/17 06/12/17 06/12/17 06/12/17 07:00 15:00 23:00 07:00 15:00 23:00 Intake Total 600 ml 480 ml 0 ml Output Total 750 ml 350 ml 350 ml Balance -150 ml 130 ml -350 ml Intake Oral 600 ml 480 ml 0 ml Output Urine Total 750 ml 350 ml 350 ml # Bowel Movements 0 Result Diagram: 06/12/17 0751 06/12/17 0751 Objective Remarks LLE: +knee brace. nvi. slight discomfort with motion Assessment & Plan Assessment and Plan 1) Left Hip Dislocation s/p reduction - day 3 -WBAT -knee brace at all times -posterior hip precautions -CM for rehab placement -ortho cleared for DC to rehab when arrangements made -f/u [facility] or [facility] in 2 weeks Carmelo Gayle Jun 12, 2017 09:39
--- NOTE | 2017-06-12 10:50 | RADRPT ---
EXAM DATE/TIME: 06/12/2017 10:06 [place] COMPARISON: No previous studies available for comparison. INDICATIONS : Obstruction. MEDICAL HISTORY : Hypertension. Skin ca. SURGICAL HISTORY : Cholecystectomy. Fusion, cervical. Appendectomy. ENCOUNTER: Initial ACUITY: 2 day PAIN SCORE: 2/10 LOCATION: abdomen TECHNIQUE: Multiplanar, multisequence magnetic resonance imaging of the abdomen was performed. High-resolution 3D dataset was utilized to reconstruct maximum-intensity projection (MIP) images. FINDINGS: The intrahepatic ducts are mildly prominent. The proper hepatic ducts are mildly dilated. The common duct is dilated with a maximum dimension of 1.1 cm. No stones are identified within the common duct. The patient is post cholecystectomy. The pancreatic duct is normal in caliber. Evaluation of the hepatic parenchyma demonstrates a 1 cm simple cyst in the left lobe of the liver. The appearance of the pancreas, spleen, adrenal glands and right kidney is within normal limits. Eval uation of the left kidney demonstrates a 1.1 cm simple cyst. There is no retroperitoneal adenopathy. No free fluid is seen within the abdomen. CONCLUSION: 1. Mild prominence of the intrahepatic ducts with dilation of the proper hepatic ducts and moderate d ilation of the common bile duct with a maximum dimension of 1.1 cm. The duct is well-visualized. Ther e is no stone evident within the common duct. 2. The pancreatic duct is normal in caliber. Saul Morse MD on June 12, 2017 at 10:43 Board Certified Radiologist. This report was verified electronically.
[2017-06-12 11:43] VITALS: BP 140/68; PULSE 76; RESP 16; TEMP 97.1; O2SAT 95
--- NOTE | 2017-06-12 12:55 | HHI.DS ---
Discharge Summary Admission Date Jun 09, 2017 at 11:17 pm Discharge Date: Jun 12, 2017 Admitting Diagnosis left hip dislocation, s/p reduction (1) Hip dislocation, left ICD Code: S73.005A (2) Afib ICD Code: I48.91 Diagnosis: Secondary (3) Acute hepatitis ICD Code: B17.9 Diagnosis: Principal Procedures Closed reduction left hip Brief History - From Admission Written by DONNY Tirado acting as scribe for [Shahida] on 06/10/17 at 03: 47. 86 y/o male with a history of afib, spinal stenosis, neuropathy, hypotension, aortic stenosis, ckd, copd, diverticulosis, bph, sleep apne, crohn's, barretts esophagus and skin cancer presented to the ED after a fall at home. Patient states he was in the bathroom leaning against the sink and his legs did not feel normal. He states they just gave out and he fell on his right side. He states his left leg was caught between the door and counter and he could not straighten it. He did hit his head and had some bleeding due to the eliquis. He states he was on his back for 3 hours and he crawled his way to a phone and call evac. He denies any chest pain, sob, or dizziness prior to the fall. He did complain of nausea on Thursday and for the last week he has had diarrhea related to his Crohn's disease. Patient does live alone, and only has a friend that checks on him weekly. CBC/BMP: 06/12/17 0751 06/12/17 0751 Significant Findings Laboratory Tests Test 06/09/17 06/09/17 06/10/17 06/11/17 19:30 22:20 07:17 06:10 Potassium Level 3.2 MEQ/L (3.5-5.1) Chloride Level 117 MEQ/L (98-107) Carbon Dioxide Level 17.8 MEQ/L (21.0-32.0) Blood Urea Nitrogen 20 MG/DL (7-18) 24 MG/DL (7-18) Estimat Glomerular Filtration 55 ML/MIN (>89) 43 ML/MIN (>89) Rate Calcium Level 6.7 MG/DL 7.7 MG/DL (8.5-10.1) (8.5-10.1) Protein Corrected Calcium 7.5 MG/DL (8.5-10.1) Aspartate Amino Transf 50 U/L (15-37) 501 U/L (15-37) (AST/SGOT) Total Protein 5.4 GM/DL 5.7 GM/DL (6.4-8.2) (6.4-8.2) Albumin 3.0 GM/DL 2.8 GM/DL (3.4-5.0) (3.4-5.0) Prothrombin Time 13.1 SEC (9.8-11.6) Activated Partial 22.7 SEC Thromboplast Time (24.3-30.1) Red Blood Count 3.85 MIL/MM3 3.76 MIL/MM3 (4.50-5.90) (4.50-5.90) Hemoglobin 12.2 GM/DL 12.2 GM/DL (13.0-17.0) (13.0-17.0) Hematocrit 36.6 % 35.5 % (39.0-51.0) (39.0-51.0) Platelet Count 90 TH/MM3 (150-450) Band Neutrophils % 20 % (0-6) Platelet Estimate LOW (NORMAL) Ovalocytes 1+ (NORMAL) White Blood Count 3.4 TH/MM3 (4.0-11.0) Monocytes (%) (Auto) 12.9 % (0.0-8.0) Lymphocytes # (Auto) 0.6 TH/MM3 (1.0-4.8) Sodium Level 135 MEQ/L (136-145) Creatinine 1.56 MG/DL (0.60-1.30) Total Bilirubin 1.3 MG/DL (0.2-1.0) Alanine Aminotransferase 601 U/L (12-78) (ALT/SGPT) Alkaline Phosphatase 146 U/L (45-117) Test 06/12/17 07:51 Red Blood Count 3.49 MIL/MM3 (4.50-5.90) Hemoglobin 11.3 GM/DL (13.0-17.0) Hematocrit 33.2 % (39.0-51.0) Platelet Count 149 TH/MM3 (150-450) Monocytes (%) (Auto) 9.5 % (0.0-8.0) Eosinophils (%) (Auto) 4.2 % (0.0-4.0) Sodium Level 135 MEQ/L (136-145) Creatinine 1.41 MG/DL (0.60-1.30) Estimat Glomerular Filtration 48 ML/MIN (>89) Rate Calcium Level 7.9 MG/DL (8.5-10.1) Aspartate Amino Transf 213 U/L (15-37) (AST/SGOT) Alanine Aminotransferase 376 U/L (12-78) (ALT/SGPT) Alkaline Phosphatase 130 U/L (45-117) Total Protein 5.9 GM/DL (6.4-8.2) Albumin 2.9 GM/DL (3.4-5.0) PE at Discharge GENERAL: NAD, A&Ox3 HEAD: Normocephalic. NECK: Supple, trachea midline. No lymphadenopathy. EYES: No scleral icterus. No injection or drainage. CARDIOVASCULAR: Regular rate and rhythm without murmurs, gallops, or rubs. RESPIRATORY: Breath sounds equal bilaterally. No accessory muscle use. GASTROINTESTINAL: Abdomen soft, non-tender, nondistended. MUSCULOSKELETAL: No cyanosis, or edema. SKIN: Warm and dry. NEURO: No focal neurological deficitis. Hospital Course Mr. Quiles is an 86-year-old male. He was admitted secondary to a left hip dislocation. This hip was reduced in the OR. Patient was ready to discharge, but he had evidence of an acute onset of hepatitis versus liver failure. He was evaluated with an MRCP and had his liver function tests followed 24 hours after the first abnormality. MRCP shows no atypical findings to explain this cause. He has had improvement in his liver function tests the prior day. This point he is medically stable and safe for discharge to home without evidence of acute liver failure. Etiology may be a reaction to anesthesia, as this was his only new exposure while in the hospital. He'll discharged to detention facility for further rehabilitation. Pt Condition on Discharge: Stable Discharge Disposition: Discharge to SNF Discharge Time: <= 30 minutes Discharge Instructions DIET: Follow Instructions for: Heart Healthy Diet Activities you can perform: Regular-No Restrictions Activities to Avoid: Driving Follow up Referrals: Orthopedics - 2 Weeks @ [facility] with Luiz Rush MD PCP Follow-up - 1 Week New Medications: Hydrocodone-Acetaminophen (Hydrocodone-Acetaminophen) 10-325 mg Tab 1 TAB PO Q4H PRN PAIN SCALE 6 TO 10 #20 TAB Changed Medications: Lorazepam (Lorazepam) 1 Mg Tab 1 MG PO Q6HR PRN for severe anxiety or dyspnea #12 Ref 0 TAB (Changed from: Q4H) Continued Medications: Apixaban (Eliquis) 5 Mg Tab 2.5 MG PO BID Blood Clot Prevention #60 Ref 0 TAB Biotin (Biotin) 1 Mg Cap 1 MG PO #1 BOTTLE Calcium Carbonate (Calcium Carbonate) 1,500 Mg Tab 1500 MG PO BID 1,500 mg calcium carbonate (600 mg elemental calcium) Calcium Supplement Ref 0 TAB Cholecalciferol (Vitamin D3) 400 Unit Cap 400 UNITS PO DAILY Nutritional Supplement #2 Ref 0 BOTTLE Cyanocobalamin Inj (Cyanocobalamin Inj) 1,000 Mcg/Ml Inj 1000 MCG IM MONTHLY ILEOCECAL VALVE SURG REMOVED Days 2 Ref [address] (Cymbalta DR) 30 Mg Capdr 30 MG PO DAILY #30 Ref 0 CAP Flecainide (Flecainide) 100 Mg Tab 100 MG PO BID Regulate Heart Beat #60 Ref 0 TAB Fluticasone Nasal [place] (Fluticasone Nasal [place]) 50 Mcg/Act Naspr 50 MCG EACH NARE BID 50 mcg/spray Allergy Management #1 Ref 0 BOTTLE Loratadine (Claritin) 10 Mg Cap 10 MG PO DAILY Allergy Management Ref 0 CAP [place]-3 Fatty Acids (Fish Oil) 1,000 Mg Cap #2 Pantoprazole (Pantoprazole) 40 Mg Tab 40 MG PO DAILY Reflux #30 Ref 0 TAB Potassium Chloride ER (Potassium Chloride ER) 20 Meq Tab 40 MEQ PO BID Electrolyte Replacement #60 Ref 0 TAB Psyllium Powder (Metamucil [facility] Fiber) 58.12 % Pow usally takes 2-4tsp prn Terazosin (Terazosin) 2 Mg Cap 2 MG PO HS #30 Ref 0 CAP Saul Schaefer MD Jun 12, 2017 12:55 pm
== END 2017-06-12 14:01 | DRG 537 ==
LOC: NEPC 18:43 → NEDA 23:16 → OBSVTOIN 23:17 → N06A 06-10 02:33
PROVIDERS: ADMIT Hospitalist; ATTEND Hospitalist
PROC: 0SSBXZZ Reposition Left Hip Joint, External Approach (ICD-10-PCS; principal; 2017-06-09)
DX: S73.015A Posterior dislocation of left hip, initial encounter (principal); K50.90 Crohn's disease, unspecified, without complications; I95.9 Hypotension, unspecified; D69.6 Thrombocytopenia, unspecified; S09.90XA Unspecified injury of head, initial encounter; G62.9 Polyneuropathy, unspecified; B17.9 Acute viral hepatitis, unspecified; I48.2 Chronic atrial fibrillation; J44.9 Chronic obstructive pulmonary disease, unspecified; I35.0 Nonrheumatic aortic (valve) stenosis; M48.00 Spinal stenosis, site unspecified; N18.9 Chronic kidney disease, unspecified; K57.90 Diverticulosis of intestine, part unspecified, without perforation or abscess without bleeding; N40.0 Benign prostatic hyperplasia without lower urinary tract symptoms; G47.30 Sleep apnea, unspecified; K22.70 Barrett's esophagus without dysplasia; Z85.820 Personal history of malignant melanoma of skin; E87.6 Hypokalemia; K72.90 Hepatic failure, unspecified without coma; M16.12 Unilateral primary osteoarthritis, left hip; S40.211A Abrasion of right shoulder, initial encounter; S50.311A Abrasion of right elbow, initial encounter; S20.311A Abrasion of right front wall of thorax, initial encounter; W19.XXXA Unspecified fall, initial encounter; Y92.009 Unspecified place in unspecified non-institutional (private) residence as the place of occurrence of the external cause; Z87.891 Personal history of nicotine dependence
CPT/HCPCS: 27250; 70450; 71010; 72125; 72170; 73030; 73080; 73501; 73700; 74181; 76377; 80053; 83735; 85007; 85025; 85027; 85610; 85730; 93005; 96374; 99152; 99153; J1170; J2250; J2310; J3010; L1830

== ENCOUNTER 2018-03-23 14:39 | Observation (INO) | payer OTHER ==
[~2018-03-23] VITALS: Ht 177.8 cm; Wt 86.0 kg
[~2018-03-23 14:39] MED LIST changes: -BUPR1TAB29 PO; -GLUC1CAP14 PO; +HYDR-3583 PO; -MENA1CAP; -PSYL1POW7; +PSYL1POW7 PO; -SAW160TA
[2018-03-23 14:48] VITALS: BP 111/61; PULSE 80; RESP 18; TEMP 97.8; O2SAT 94
--- NOTE | 2018-03-23 14:59 | PD ---
HPI Chief Complaint: Fall Time Seen by Provider: 14:59 Travel History International Travel<30 days: No Contact w/Intl Traveler<30days: No Traveled to known affect area: No History of Present Illness HPI 87-year-old male with history of CAD, A. fib, peripheral neuropathy, and an autonomic nervous system disorder that has caused him to have multiple falls in the last year, 14 to be exact, presents emergency department today for evaluation following a fall. Patient states today's fall was different than all of his other falls. He states that he woke up he was very weak. He went to the restroom and does not remember sitting down on the toilet. He woke up on the floor. He tells me he went back to bed and laid there until about noon. He told me he is felt weak all day. He could "not even for his cereal." Patient did strike his face and have epistaxis that has resolved. He reports significant left upper abdominal and left sided chest pain, exacerbated with inspiration, touch, or movement. It has progressed and pain throughout the day , and now it is a 6 out of 10. He denies any nausea or vomiting. He denies any other focal deficits weakness. He has no chest pain or tightness. No shortness of breath. Patient has no other symptoms to report at this time. PFSH Past Medical History Asthma: No Blood Disorders: No Heart Rhythm Problems: No Cancer: Yes (skin ca) Cardiovascular Problems: Yes (hx. of afib) High Cholesterol: Yes Chemotherapy: No Chest Pain: No Congestive Heart Failure: No COPD: No Diabetes: No Diminished Hearing: Yes (wears hearing aids reji ears) Endocrine: No Genitourinary: No Hypertension: Yes Immune Disorder: No Musculoskeletal: No Neurologic: Yes (periph neuropathy LT>RT) Psychiatric: No Reproductive: No Respiratory: No Radiation Therapy: No Sleep Apnea: Yes Thyroid Disease: No Past Surgical History Abdominal Surgery: Yes (ILIOCOLIC RESECTION) Appendectomy: Yes Cholecystectomy: Yes Tonsillectomy: Yes Other Surgery: Yes (ANTERIOR CERVICAL LAMINECTOMY) Social History Alcohol Use: No Tobacco Use: No Substance Use: No Allergies-Medications (Allergen,Severity, Reaction): Coded Allergies: sulfamethoxazole (Unverified Allergy, Severe, 03/23/18) trimethoprim (Unverified Allergy, Severe, 03/23/18) penicillin G (Unverified Allergy, Intermediate, 03/23/18) Reported Meds & Prescriptions Reported Meds & Active Scripts Active Reported Claritin (Loratadine) 10 Mg Tablet 10 Mg PO DAILY PRN Ativan (Lorazepam) 1 Mg Tab 1 Mg PO DAILY PRN Klonopin (Clonazepam) 2 Mg Tab 2 Mg PO HS Loperamide (Loperamide HCl) 2 Mg Cap 2 Mg PO DAILY One capsule after each loose stool. Not to exceed 8 capsules per day. Saw [place] 160 mg Softgel (Pumpkin Seed Oil/Saw [place]) 160 Mg Capsule 160 Mg PO DAILY Vitamin K (Phytonadione) 100 Mcg Tab 100 Mcg PO DAILY Bupropion HCl ER 24 HR (Bupropion HCl) 150 Mg Tab 150 Mg PO DAILY Glucosamine-Chondroitin Tablet (Glucosamine HCl/Chondr Farley A Na) 750 Mg-600 Mg Tablet 2 Tab PO BID Potassium Chloride ER (Potassium Chloride) 20 Meq Tab 80 Meq PO BID Terazosin (Terazosin HCl) 1 Mg Cap 1 Mg PO HS Duloxetine DR (Duloxetine HCl) 60 Mg Capdr 60 Mg PO DAILY Fish Oil 1200 mg ([place]-3 Fatty Acids) 360 Mg-1,200 Mg Cap 1 Cap PO BID D3 (Cholecalciferol) 1,000 Unit Tab 500 Units PO BID Calcium 600 (Calcium Carbonate) 600 Mg Calcium (1500 Mg) Tab 600 Mg PO BID Cyanocobalamin Inj (Cyanocobalamin) 1,000 Mcg/Ml Inj 1,000 Mcg IM TWICE A MONTH 2 Days 1ST & 15 Pantoprazole (Pantoprazole Sodium) 40 Mg Tab 40 Mg PO DAILY Biotin 1 Mg Cap 1 Mg PO DAILY Flecainide (Flecainide Acetate) 100 Mg Tab 100 Mg PO BID Eliquis (Apixaban) 5 Mg Tab 2.5 Mg PO BID Metamucil [facility] Fiber (Psyllium Hydrophilic Mucilloid) 58.12 % Pow PO BID 2 teaspoonsful w/10oz of gatorade Fluticasone Nasal [place] 50 Mcg/Act Naspr 1 Spr EACH NARE DAILY 50 mcg/spray Review of Systems Except as stated in HPI: all other systems reviewed are Neg Physical Exam Narrative GENERAL: Well-nourished elderly male patient, sitting up in bed, in no acute distress SKIN: Focused skin assessment warm/dry. Ecchymosis to the nasal area HEAD: Lateral deformity of the nose with edema and ecchymosis. Normocephalic. EYES: Pupils equal and round. No scleral icterus. No injection or drainage. ENT: Mucosa pink and moist. No erythema or exudates. No uvular edema. No uvular , palatal, or tonsillar deviation. Airway patent. Nasal turbinates appear normal with nasal blood in the left turbinate. No, purulent drainage or septal hematoma.. NECK: Trachea midline. No JVD. CARDIOVASCULAR: Regular rate and irregular rhythm. RESPIRATORY: No accessory muscle use. Clear to auscultation. Breath sounds equal bilaterally. Tenderness elicited palpation of the left anterior lateral thoracic cage. No crepitus. Even respirations. GASTROINTESTINAL: Abdomen soft, nondistended. Tenderness elicited palpation of the left upper quadrant. Mild guarding. No rebound tenderness.. Hepatic and splenic margins not palpable. MUSCULOSKELETAL: No obvious deformities. No clubbing. No cyanosis. No edema. NEUROLOGICAL: Awake and alert. No obvious cranial nerve deficits. Motor grossly within normal limits. Normal speech. PSYCHIATRIC: Appropriate mood and affect; insight and judgment normal. Data Data Last Documented VS Vital Signs Date Time Temp Pulse Resp B/P (MAP) Pulse Ox O2 Delivery O2 Flow Rate FiO2 03/23/18 18:28 68 19 163/77 (105) 96 Nasal Cannula 2.00 03/23/18 14:48 97.8 Orders Orders Electrocardiogram (03/23/18 15:09) Complete Blood Count With Diff (03/23/18 15:09) Comprehensive Metabolic Panel (03/23/18 15:09) Magnesium (Mg) (03/23/18 15:09) Ckmb (Isoenzyme) Profile (03/23/18 15:09) Troponin I (03/23/18 15:09) Act Partial Throm Time (Ptt) (03/23/18 15:09) Prothrombin Time / Inr (Pt) (03/23/18 15:09) Urinalysis - C+S If Indicated (03/23/18 15:09) Ct Brain W/O Iv Contrast(Rout) (03/23/18 15:09) Ct Cerv Spine W/O Contrast (03/23/18 15:09) Ecg Monitoring (03/23/18 15:09) Iv Access Insert/Monitor (03/23/18 15:09) Oximetry (03/23/18 15:09) Sodium Chloride 0.9% Flush (Ns Flush) (03/23/18 15:15) Sodium Chlor 0.9% 1000 Ml Inj (Ns 1000 M (03/23/18 15:09) Chest, Single Ap (03/23/18 ) Ct Facial Bones W/O Iv Cont (03/23/18 ) Morphine Inj (Morphine Inj) (03/23/18 15:15) Ondansetron Odt (Zofran Odt) (03/23/18 15:15) Morphine Inj (Morphine Inj) (03/23/18 16:00) CKMB (03/23/18 15:50) CKMB% (03/23/18 15:50) Ct Thorax/ Chest Wo Iv Contras (03/23/18 ) Ct Abd/Pel W/O Iv Contrast (03/23/18 ) B-Type Natriuretic Peptide (03/23/18 18:40) Cath For Specimen (03/23/18 18:48) Admit Order (Ed Use Only) (03/23/18 19:22) Labs Laboratory Tests Test 03/23/18 15:50 03/23/18 19:15 White Blood Count 8.8 TH/MM3 Red Blood Count 4.85 MIL/MM3 Hemoglobin 14.2 GM/DL Hematocrit 43.2 % Mean Corpuscular Volume 89.1 FL Mean Corpuscular Hemoglobin 29.3 PG Mean Corpuscular Hemoglobin Concent 32.9 % Red Cell Distribution Width 17.2 % Platelet Count 202 TH/MM3 Mean Platelet Volume 7.8 FL Neutrophils (%) (Auto) 81.9 % Lymphocytes (%) (Auto) 9.4 % Monocytes (%) (Auto) 7.8 % Eosinophils (%) (Auto) 0.5 % Basophils (%) (Auto) 0.4 % Neutrophils # (Auto) 7.2 TH/MM3 Lymphocytes # (Auto) 0.8 TH/MM3 Monocytes # (Auto) 0.7 TH/MM3 Eosinophils # (Auto) 0.0 TH/MM3 Basophils # (Auto) 0.0 TH/MM3 CBC Comment DIFF FINAL Differential Comment Prothrombin Time 10.7 SEC Prothromb Time International Ratio 1.1 RATIO Activated Partial Thromboplast Time 26.0 SEC Blood Urea Nitrogen 17 MG/DL Creatinine 2.54 MG/DL Random Glucose 95 MG/DL Total Protein 7.1 GM/DL Albumin 3.6 GM/DL Calcium Level 8.9 MG/DL Magnesium Level 2.1 MG/DL Alkaline Phosphatase 75 U/L Aspartate Amino Transf (AST/SGOT) 33 U/L Alanine Aminotransferase (ALT/SGPT) 20 U/L Total Bilirubin 0.9 MG/DL Sodium Level 136 MEQ/L Potassium Level 5.1 MEQ/L Chloride Level 102 MEQ/L Carbon Dioxide Level 23.7 MEQ/L Anion Gap 10 MEQ/L Estimat Glomerular Filtration Rate 24 ML/MIN Total Creatine Kinase 194 U/L Creatine Kinase MB 1.7 NG/ML Troponin I LESS THAN 0.02 NG/ML Urine Color YELLOW Urine Turbidity CLEAR Urine pH 5.5 Urine Specific [place] 1.010 Urine Protein TRACE mg/dL Urine Glucose (UA) NEG mg/dL Urine Ketones NEG mg/dL Urine Occult Blood NEG Urine Nitrite NEG Urine Bilirubin NEG Urine Urobilinogen LESS THAN 2.0 MG/DL Urine Leukocyte Esterase TRACE Urine RBC LESS THAN 1 /hpf Urine WBC 2 /hpf Urine Squamous Epithelial Cells 1 /hpf Urine Hyaline Casts 5 /lpf Urine Mucus FEW /lpf Microscopic Urinalysis Comment CULT NOT INDICATED MDM Medical Decision Making Medical Screen Exam Complete: Yes Emergency Medical Condition: Yes Medical Record Reviewed: Yes Differential Diagnosis Fracture versus pneumothorax versus minor head injury versus intracranial hemorrhage versus visceral injury versus syncope versus arrhythmia versus near syncope versus electrolyte abnormality Narrative Course 87-year-old male presents emergency department for evaluation following a syncopal episode. Patient appears without distress. He has obvious nasal trauma. He has tenderness to the left anterior thoracic cage as well as left upper quadrant of the abdomen. Neuro exam is nonfocal. Laboratory Tests Test 03/23/18 15:50 03/23/18 19:15 White Blood Count 8.8 TH/MM3 Red Blood Count 4.85 MIL/MM3 Hemoglobin 14.2 GM/DL Hematocrit 43.2 % Mean Corpuscular Volume 89.1 FL Mean Corpuscular Hemoglobin 29.3 PG Mean Corpuscular Hemoglobin Concent 32.9 % Red Cell Distribution Width 17.2 % Platelet Count 202 TH/MM3 Mean Platelet Volume 7.8 FL Neutrophils (%) (Auto) 81.9 % Lymphocytes (%) (Auto) 9.4 % Monocytes (%) (Auto) 7.8 % Eosinophils (%) (Auto) 0.5 % Basophils (%) (Auto) 0.4 % Neutrophils # (Auto) 7.2 TH/MM3 Lymphocytes # (Auto) 0.8 TH/MM3 Monocytes # (Auto) 0.7 TH/MM3 Eosinophils # (Auto) 0.0 TH/MM3 Basophils # (Auto) 0.0 TH/MM3 CBC Comment DIFF FINAL Differential Comment Prothrombin Time 10.7 SEC Prothromb Time International Ratio 1.1 RATIO Activated Partial Thromboplast Time 26.0 SEC Blood Urea Nitrogen 17 MG/DL Creatinine 2.54 MG/DL Random Glucose 95 MG/DL Total Protein 7.1 GM/DL Albumin 3.6 GM/DL Calcium Level 8.9 MG/DL Magnesium Level 2.1 MG/DL Alkaline Phosphatase 75 U/L Aspartate Amino Transf (AST/SGOT) 33 U/L Alanine Aminotransferase (ALT/SGPT) 20 U/L Total Bilirubin 0.9 MG/DL Sodium Level 136 MEQ/L Potassium Level 5.1 MEQ/L Chloride Level 102 MEQ/L Carbon Dioxide Level 23.7 MEQ/L Anion Gap 10 MEQ/L Estimat Glomerular Filtration Rate 24 ML/MIN Total Creatine Kinase 194 U/L Creatine Kinase MB 1.7 NG/ML Troponin I LESS THAN 0.02 NG/ML Urine Color YELLOW Urine Turbidity CLEAR Urine pH 5.5 Urine Specific [place] 1.010 Urine Protein TRACE mg/dL Urine Glucose (UA) NEG mg/dL Urine Ketones NEG mg/dL Urine Occult Blood NEG Urine Nitrite NEG Urine Bilirubin NEG Urine Urobilinogen LESS THAN 2.0 MG/DL Urine Leukocyte Esterase TRACE Urine RBC LESS THAN 1 /hpf Urine WBC 2 /hpf Urine Squamous Epithelial Cells 1 /hpf Urine Hyaline Casts 5 /lpf Urine Mucus FEW /lpf Microscopic Urinalysis Comment CULT NOT INDICATED Last Impressions Head CT 03/23/18 1509 Signed Impressions: CONCLUSION: 1. Stable CT scan of the brain compared to 2017. 2. No focal or acute intracranial hemorrhage. Cervical Spine CT 03/23/18 1509 Signed Impressions: CONCLUSION: 1. No acute bony fracture. 2. Status post anterior cervical fusion from C4 through C7. There is good alig nment of the cervical spine and fusion. 3. Bilateral facet arthritis at multiple levels. 4. No significant changes compared to the prior exam. Maxillofacial CT 03/23/18 0000 Signed Impressions: CONCLUSION: 1. Active superior nasal spine otherwise negative Chest X-Ray 03/23/18 0000 Signed Impressions: CONCLUSION: Small area of atelectasis at the left lung base. This is similar to previous da dionte 06/09/2017. No acute abnormality is seen. Chest CT 03/23/18 0000 Signed Impressions: CONCLUSION: 1. Bibasilar infiltrates, left greater than right. 2. Chronic interstitial changes bilaterally. Abdomen/Pelvis CT 03/23/18 0000 Signed Impressions: CONCLUSION: 1. Patchy airspace disease both lungs worse the left that could be contusion. 2. Negative for sonolucent injury 3. Degenerative changes in the thoracolumbar spine without fracture. 4. Lack of intravenous contrast makes detection of subtle abnormality difficul t. I discussed the findings with my attending who is also assessed the patient. patient will be admitted observation for his syncopal episode. Plan is discussed with the patient. he is in agreement with this plan of care. Diagnosis Primary Impression: Syncope Qualified Codes: R55 - Syncope and collapse Additional Impressions: Nasal fracture Qualified Codes: S02.2XXA - Fracture of nasal bones, initial encounter for closed fracture Lung contusion Qualified Codes: S27.321A - Contusion of lung, unilateral, initial encounter Admitting Information Admitting Physician Requests: Observation Condition: Stable Maria Lozada March 23, 2018 14:59
[2018-03-23] MEDS ORDERED: SODIUM CHLOR 0.9% 1000 ML INJ 1,000 ML IV ONE (15:09)
[2018-03-23] MEDS ORDERED: ONDANSETRON ODT 4 MG TAB PO ONE (15:15)
[2018-03-23] MEDS ORDERED: MORPHINE SULFATE 2 MG/ML SYRINGE IV PUSH ONE (15:15)
[2018-03-23] MEDS ORDERED: SODIUM CHLORIDE 0.9% FLUSH 10 ML FLUSH IVF PRN (15:15)
[2018-03-23 15:27] VITALS: BP 117/91; PULSE 73; RESP 19; O2SAT 95
[2018-03-23] MEDS ORDERED: POTA-163 PO (15:54)
[2018-03-23] MEDS ORDERED: KLON2TAB PO (15:54)
[2018-03-23] MEDS ORDERED: DULO1CAP3 PO (15:54)
[2018-03-23] MEDS ORDERED: D31000TA PO (15:54)
[2018-03-23] MEDS ORDERED: GLUC1TAB PO (15:54)
[2018-03-23] MEDS ORDERED: LORA-474 PO (15:54)
[2018-03-23] MEDS ORDERED: VITA100T50 PO (15:54)
[2018-03-23] MEDS ORDERED: CALCTAB94 PO (15:54)
[2018-03-23] MEDS ORDERED: CLAR10TA7 PO (15:54)
[2018-03-23] MEDS ORDERED: FISH1200 PO (15:54)
[2018-03-23] MEDS ORDERED: LOPE2CAP PO (15:54)
[2018-03-23] MEDS ORDERED: TERA1CAP3 PO (15:54)
[2018-03-23] MEDS ORDERED: [UNRECOGNIZED DRUG - CODE] PO (15:54)
[2018-03-23] MEDS ORDERED: BUPR150T3 PO (15:54)
--- NOTE | 2018-03-23 15:57 | RADRPT ---
EXAM DATE: 03/23/2018 3:22 PM EDT AGE/SEX: 87 years / Male INDICATIONS: Short of breath. Left sided chest pain. CLINICAL DATA: This is the patient's initial encounter. Patient reports that signs and symptoms have been present for 1 day and indicates a pain score of 4/10. MEDICAL/SURGICAL HISTORY: None. None. COMPARISON: [facility] [place], [place]. . FINDINGS: There is a small area of linear atelectasis at the left lung base. The lungs are otherwise clear. The heart is normal in size. The visualized bony structures are grossly intact. CONCLUSION: Small area of atelectasis at the left lung base. This is similar to previous dated 06/09/2017. No acut e abnormality is seen. Electronically signed by: Saul Morse MD 03/23/2018 3:56 PM EDT
[2018-03-23] MEDS ORDERED: MORPHINE SULFATE 4 MG/ML INJ IV PUSH ONE (16:00)
[2018-03-23 16:22] LABS: AUTOMATED NEUTROPHIL # 7.2 TH/MM3 (1.8-7.7); BASOPHIL % 0.4 % (0.0-2.0); EOSINOPHIL % 0.5 % (0.0-4.0); HEMATOCRIT 43.2 % (39.0-51.0); HEMOGLOBIN 14.2 GM/DL (13.0-17.0); LYMPH % 9.4 % (9.0-44.0); LYMPHOCYTE # 0.8 TH/MM3 (1.0-4.8); MEAN CELL VOLUME 89.1 FL (80.0-100.0); MEAN CORPUSCULAR HEMOGLOBIN 29.3 PG (27.0-34.0); MEAN CORPUSCULAR HGB CONC 32.9 % (32.0-36.0); MEAN PLATELET VOLUME 7.8 FL (7.0-11.0); MONO % 7.8 % (0.0-8.0); MONOCYTE # 0.7 TH/MM3 (0-0.9); NEUT % 81.9 % (16.0-70.0); PLATELET COUNT 202 TH/MM3 (150-450); RED BLOOD COUNT 4.85 MIL/MM3 (4.50-5.90); RED CELL DISTRIBUTION WIDTH 17.2 % (11.6-17.2); WHITE BLOOD COUNT 8.8 TH/MM3 (4.0-11.0)
[2018-03-23 16:27] LABS: INTERNATIONAL NORMALIZED RATIO 1.1 RATIO; PROTHROMBIN TIME - PATIENT 10.7 SEC (9.8-11.6)
[2018-03-23 16:52] LABS: ALBUMIN 3.6 GM/DL (3.4-5.0); AST (GOT) 33 U/L (15-37); BICARBONATE 23.7 MEQ/L (21.0-32.0); BLOOD UREA NITROGEN 17 MG/DL (7-18); CALCIUM 8.9 MG/DL (8.5-10.1); CHLORIDE 102 MEQ/L (98-107); CREATININE 2.54 MG/DL (0.60-1.30); GLOMERULAR FILTRATION RATE 24 ML/MIN (>89); GLUCOSE,RANDOM 95 MG/DL (74-106); MAGNESIUM 2.1 MG/DL (1.5-2.5); SODIUM (NA) 136 MEQ/L (136-145)
[2018-03-23 16:59] VITALS: O2SAT 97
[2018-03-23 17:00] LABS: ALKALINE PHOSPHATASE 75 U/L (45-117); ALT (GPT) 20 U/L (12-78); TOTAL BILIRUBIN ADULT 0.9 MG/DL (0.2-1.0); TROPONIN I LESS THAN 0.02 NG/ML (0.02-0.05)
[2018-03-23 17:05] LABS: TOTAL PROTEIN 7.1 GM/DL (6.4-8.2)
--- NOTE | 2018-03-23 18:17 | RADRPT ---
EXAM DATE: 03/23/2018 6:03 PM EDT AGE/SEX: 87 years / Male INDICATIONS: Trauma, fall CLINICAL DATA: This is the patient's initial encounter. Patient reports that signs and symptoms have been present for 1 day and indicates a pain score of 2/10. MEDICAL/SURGICAL HISTORY: Cardiovascular disease. Hypertension. Skin cancer Appendectomy. Cholec ystectomy. RADIATION DOSE: 56.35 CTDI (mGy) COMPARISON: [facility] – [place], [place] BRAIN W/O CONTRAST, 06/09/2017. . TECHNIQUE: CT of the head without contrast. Using automated exposure control and adjustment of the mA and/or kV according to patient size, radiation dose was kept as low as reasonably achievable to ob tain optimal diagnostic quality images. FINDINGS: Cerebrum: The ventricles are normal for age. Stable bilateral cortical atrophy and chronic white mat ter changes. No evidence of midline shift, mass lesion, hemorrhage or acute infarction. No extraaxia l fluid collections are seen. Posterior Fossa: The cerebellum and brainstem are intact. The 4th ventricle is midline. The cerebe llopontine angle is unremarkable. Extracranial: The visualized portion of the orbits is intact. Skull: The calvaria is intact. No evidence of skull fracture. CONCLUSION: 1. Stable CT scan of the brain compared to 2017. 2. No focal or acute intracranial hemorrhage. Electronically signed by: Jonatan Stovall MD 03/23/2018 6:16 PM EDT
[2018-03-23 18:28] VITALS: BP 163/77; PULSE 68; RESP 19; O2SAT 96
--- NOTE | 2018-03-23 18:29 | RADRPT ---
EXAM DATE: 03/23/2018 6:18 PM EDT AGE/SEX: 87 years / Male INDICATIONS: Trauma, fall, right eye pain CLINICAL DATA: This is the patient's initial encounter. Patient reports that signs and symptoms have been present for 1 day and indicates a pain score of 2/10. MEDICAL/SURGICAL HISTORY: Cardiovascular disease. Hypertension. Skin cancer. Appendectomy. C holecystectomy. RADIATION DOSE: 21.96 CTDI (mGy) COMPARISON: No prior [place] exams available for comparison. TECHNIQUE: Contiguous images in the axial and coronal planes were obtained using helical multirow de tector technique. Using automated exposure control and adjustment of the mA and/or kV according to p atient size, radiation dose was kept as low as reasonably achievable to obtain optimal diagnostic justin lity images. FINDINGS: Fracture of the superior nasal spine. Frontal sinuses, ethmoid sinuses, maxillary sinuses are clear. Mandible and maxilla are intact Zygomatic arches are intact and alignment anatomic about the TMJ joints. CONCLUSION: 1. Active superior nasal spine otherwise negative Electronically signed by: Low Morse MD 03/23/2018 6:28 PM EDT
--- NOTE | 2018-03-23 18:31 | RADRPT ---
EXAM DATE: 03/23/2018 6:08 PM EDT AGE/SEX: 87 years / Male INDICATIONS: Trauma, fall, left sided neck pain CLINICAL DATA: This is the patient's initial encounter. Patient reports that signs and symptoms have been present for 1 day and indicates a pain score of 2/10. MEDICAL/SURGICAL HISTORY: Cardiovascular disease. Hypertension. Skin cancer. Appendectomy. C holecystectomy. RADIATION DOSE: 17.80 CTDI (mGy) [place] [facility] [place]/09/2017. . TECHNIQUE: Contiguous axial images were obtained using helical multirow detector technique. The vol umetric data was post-processed with multiplanar reconstruction in oblique axial, sagittal, and coron al planes. Using automated exposure control and adjustment of the mA and/or kV according to patient s ize, radiation dose was kept as low as reasonably achievable to obtain optimal diagnostic quality ame ges. FINDINGS: Vertebrae: Status post anterior cervical fusion from C4 through C7. There are some bony degenerative changes involving the cervical spine. The anterior cervical fusion, alignment and bony degenerative changes appear to be stable compared to the prior exam from 2016. No evidence of spondylolisthesis. N o acute bony fractures are demonstrated. C2-3: The bony spinal canal is normal in size. No evidence of disc bulge or herniation. The neural foramina are bilaterally patent. Bilateral facet arthritis. C3-4: Broad-based bulging with disc osteophyte complex. There is some narrowing of the neural forami na bilaterally. These findings are essentially stable compared to the prior study. C4-5: Status post fusion. The neural foramina are patent bilaterally. No significant extra dural def ects. C5-6: Status post fusion. There is some narrowing of the right neural foramina from facet arthritis. There is a small posterior bony osteophytes centrally. The left neural foramina is patent. No signif icant changes. C6-7: Status post fusion. No significant intradural defects. The neural foramina are patent bilatera lly. There is bilateral facet arthritis. No significant changes. C7-T1: The bony spinal canal is normal in size. No evidence of disc bulge or herniation. The neura l foramina are bilaterally patent. Bilateral facet arthritis. Compared to the prior exam from 2016, no significant changes are demonstrated. CONCLUSION: 1. No acute bony fracture. 2. Status post anterior cervical fusion from C4 through C7. There is good alignment of the cervical spine and fusion. 3. Bilateral facet arthritis at multiple levels. 4. No significant changes compared to the prior exam. Electronically signed by: Jonatan Stovall MD 03/23/2018 6:30 PM EDT
--- NOTE | 2018-03-23 18:37 | RADRPT ---
EXAM DATE: 03/23/2018 6:18 PM EDT AGE/SEX: 87 years / Male INDICATIONS: Trauma, fall CLINICAL DATA: This is the patient's initial encounter. Patient reports that signs and symptoms have been present for 1 day and indicates a pain score of 2/10. MEDICAL/SURGICAL HISTORY: Cardiovascular disease. Hypertension. Skin cancer. Appendectomy. Marina cystectomy. RADIATION DOSE: 5.95 CTDI (mGy) ; Combined studies COMPARISON: No prior [place] exams available for comparison. TECHNIQUE: Multiple contiguous axial images were obtained through the chest without contrast. Image s were obtained in suspended respiration using multiple row detector helical technique. Using automa dionte exposure control and adjustment of the mA and/or kV according to patient size, radiation dose was kept as low as reasonably achievable to obtain optimal diagnostic quality images. FINDINGS: Lungs: There are nonspecific infiltrates in the lung bases posteriorly, left greater than right. The re is chronic interstitial changes bilaterally. No evidence of pneumothorax. Mediastinum: There is good visualization of the great vessels of the middle mediastinum. No evidenc e of mediastinal or hilar adenopathy/mass. Pleurae: No evidence of focal thickening or pleural effusion. Axillae: Unremarkable. Bony Structures: Primary bony degenerative changes are seen throughout the thoracic spine. No defini te acute bony fracture. Miscellaneous: The examination was extended to include the upper abdomen, and both adrenal glands ar e normal in size and configuration. CONCLUSION: 1. Bibasilar infiltrates, left greater than right. 2. Chronic interstitial changes bilaterally. Electronically signed by: Jonatan Stovall MD 03/23/2018 6:36 PM EDT
--- NOTE | 2018-03-23 18:38 | RADRPT ---
EXAM DATE: 03/23/2018 6:20 PM EDT AGE/SEX: 87 years / Male INDICATIONS: Trauma, fall CLINICAL DATA: This is the patient's initial encounter. Patient reports that signs and symptoms have been present for 1 day and indicates a pain score of 2/10. MEDICAL/SURGICAL HISTORY: Cardiovascular disease. Hypertension. Skin cancer. Appendectomy. C holecystectomy. RADIATION DOSE: 5.95 CTDI (mGy) ; Combined studies COMPARISON: No prior [place] exams available for comparison. TECHNIQUE: Multiple contiguous axial images were obtained through the abdomen. Images were obtained using multiple row detector helical technique. Using dose reduction techniques, radiation dose was ke pt as low as reasonably achievable to obtain optimal diagnostic quality images. FINDINGS: Patchy airspace disease in both lungs worse on the right. There is no pneumothorax Liver and spleen unremarkable Surgical clips gallbladder fossa Mild prominence of the common duct at 6 mm Pancreas unremarkable Adrenal glands appear normal Right and left kidneys unremarkable There are no inflammatory changes in the abdomen Previous surgery in the right lower quadrant The pelvis multiple diverticuli sigmoid colon without inflammatory changes There is no ascites or adenopathy Review of bone windows reveals only degenerative changes in the lower lumbar spine. CONCLUSION: 1. Patchy airspace disease both lungs worse the left that could be contusion. 2. Negative for sonolucent injury 3. Degenerative changes in the thoracolumbar spine without fracture. 4. Lack of intravenous contrast makes detection of subtle abnormality difficult. Electronically signed by: Low Morse MD 03/23/2018 6:36 PM EDT
--- NOTE | 2018-03-23 18:48 | PD ---
Physical Exam Narrative GENERAL: 87-year-old male in no apparent distress SKIN: Focused skin assessment warm/dry. HEAD: Ecchymosis noted to the nasal bridge. Normocephalic. EYES: Pupils equal and round. No scleral icterus. No injection or drainage. ENT: No nasal bleeding or discharge. Mucous membranes pink and moist. No septal hematoma NECK: Trachea midline. No JVD. No pain over midline C-spine CARDIOVASCULAR: Regular rate and rhythm. RESPIRATORY: No accessory muscle use. Clear to auscultation. Breath sounds equal bilaterally. GASTROINTESTINAL: Abdomen soft, non-tender, nondistended. MUSCULOSKELETAL: No obvious deformities. No clubbing. No cyanosis. NEUROLOGICAL: Awake and alert. Moves all extremities. Normal speech. Data Data Last Documented VS Vital Signs Date Time Temp Pulse Resp B/P (MAP) Pulse Ox O2 Delivery O2 Flow Rate FiO2 03/23/18 18:28 68 19 163/77 (105) 96 Nasal Cannula 2.00 03/23/18 14:48 97.8 Orders Orders Electrocardiogram (03/23/18 15:09) Complete Blood Count With Diff (03/23/18 15:09) Comprehensive Metabolic Panel (03/23/18 15:09) Magnesium (Mg) (03/23/18 15:09) Ckmb (Isoenzyme) Profile (03/23/18 15:09) Troponin I (03/23/18 15:09) Act Partial Throm Time (Ptt) (03/23/18 15:09) Prothrombin Time / Inr (Pt) (03/23/18 15:09) Urinalysis - C+S If Indicated (03/23/18 15:09) Ct Brain W/O Iv Contrast(Rout) (03/23/18 15:09) Ct Cerv Spine W/O Contrast (03/23/18 15:09) Ecg Monitoring (03/23/18 15:09) Iv Access Insert/Monitor (03/23/18 15:09) Oximetry (03/23/18 15:09) Sodium Chloride 0.9% Flush (Ns Flush) (03/23/18 15:15) Sodium Chlor 0.9% 1000 Ml Inj (Ns 1000 M (03/23/18 15:09) Chest, Single Ap (03/23/18 ) Ct Facial Bones W/O Iv Cont (03/23/18 ) Morphine Inj (Morphine Inj) (03/23/18 15:15) Ondansetron Odt (Zofran Odt) (03/23/18 15:15) Morphine Inj (Morphine Inj) (03/23/18 16:00) CKMB (03/23/18 15:50) CKMB% (03/23/18 15:50) Ct Thorax/ Chest Wo Iv Contras (03/23/18 ) Ct Abd/Pel W/O Iv Contrast (03/23/18 ) B-Type Natriuretic Peptide (03/23/18 18:40) Labs Laboratory Tests Test 03/23/18 15:50 White Blood Count 8.8 TH/MM3 Red Blood Count 4.85 MIL/MM3 Hemoglobin 14.2 GM/DL Hematocrit 43.2 % Mean Corpuscular Volume 89.1 FL Mean Corpuscular Hemoglobin 29.3 PG Mean Corpuscular Hemoglobin Concent 32.9 % Red Cell Distribution Width 17.2 % Platelet Count 202 TH/MM3 Mean Platelet Volume 7.8 FL Neutrophils (%) (Auto) 81.9 % Lymphocytes (%) (Auto) 9.4 % Monocytes (%) (Auto) 7.8 % Eosinophils (%) (Auto) 0.5 % Basophils (%) (Auto) 0.4 % Neutrophils # (Auto) 7.2 TH/MM3 Lymphocytes # (Auto) 0.8 TH/MM3 Monocytes # (Auto) 0.7 TH/MM3 Eosinophils # (Auto) 0.0 TH/MM3 Basophils # (Auto) 0.0 TH/MM3 CBC Comment DIFF FINAL Differential Comment Prothrombin Time 10.7 SEC Prothromb Time International Ratio 1.1 RATIO Activated Partial Thromboplast Time 26.0 SEC Blood Urea Nitrogen 17 MG/DL Creatinine 2.54 MG/DL Random Glucose 95 MG/DL Total Protein 7.1 GM/DL Albumin 3.6 GM/DL Calcium Level 8.9 MG/DL Magnesium Level 2.1 MG/DL Alkaline Phosphatase 75 U/L Aspartate Amino Transf (AST/SGOT) 33 U/L Alanine Aminotransferase (ALT/SGPT) 20 U/L Total Bilirubin 0.9 MG/DL Sodium Level 136 MEQ/L Potassium Level 5.1 MEQ/L Chloride Level 102 MEQ/L Carbon Dioxide Level 23.7 MEQ/L Anion Gap 10 MEQ/L Estimat Glomerular Filtration Rate 24 ML/MIN Total Creatine Kinase 194 U/L Creatine Kinase MB 1.7 NG/ML Troponin I LESS THAN 0.02 NG/ML MDM Supervised Visit with CARLO: Yes Interpretation(s) CBC & BMP Diagram 03/23/18 15:50 Total Protein 7.1, Albumin 3.6, Calcium Level 8.9, Magnesium Level 2.1, Alkaline Phosphatase 75, Aspartate Amino Transf (AST/SGOT) 33, Alanine Aminotransferase (ALT/SGPT) 20, Total Bilirubin 0.9 Last [address] 03/23/18 1509 Signed Impressions: CONCLUSION: 1. Stable CT scan of the brain compared to 2017. 2. No focal or acute intracranial hemorrhage. Cervical Spine CT 03/23/18 1509 Signed Impressions: CONCLUSION: 1. No acute bony fracture. 2. Status post anterior cervical fusion from C4 through C7. There is good alig nment of the cervical spine and fusion. 3. Bilateral facet arthritis at multiple levels. 4. No significant changes compared to the prior exam. Maxillofacial CT 03/23/18 0000 Signed Impressions: CONCLUSION: 1. Active superior nasal spine otherwise negative Chest X-Ray 03/23/18 0000 Signed Impressions: CONCLUSION: Small area of atelectasis at the left lung base. This is similar to previous da dionte 06/09/2017. No acute abnormality is seen. Chest CT 03/23/18 0000 Signed Impressions: CONCLUSION: 1. Bibasilar infiltrates, left greater than right. 2. Chronic interstitial changes bilaterally. Abdomen/Pelvis CT 03/23/18 0000 Signed Impressions: CONCLUSION: 1. Patchy airspace disease both lungs worse the left that could be contusion. 2. Negative for sonolucent injury 3. Degenerative changes in the thoracolumbar spine without fracture. 4. Lack of intravenous contrast makes detection of subtle abnormality difficul t. Narrative Course I, Dr. osei, have reviewed the advance practice practitioner's documentation and am in agreement, met with the patient face to face, made the diagnosis, and the medical decision making was done by me. *My assessment and Findings: 87-year-old male presents after he had a syncopal event. CT shows possible contusions to lungs and patient is requiring oxygen. He also has a nasal bone fracture. He agrees to observation overnight for further workup and care. Diagnosis Primary Impression: Syncope Qualified Codes: R55 - Syncope and collapse Admitting Information Admitting Physician Requests: Observation Preethi Osei MD March 23, 2018 18:48
[2018-03-23 19:26] LABS: BILIRUBIN, URINE NEG (NEG); BLOOD, URINE NEG (NEG); GLUCOSE,URINE NEG (NEG); HYALINE CAST, URINE 5 /lpf (RARE); KETONE, URINE NEG (NEG); MUCUS URINE FEW /lpf (OCC); NITRITE,URINE NEG (NEG); PH, URINE 5.5 (5.0-8.5); SQUAMOUS EPITHELIAL CELL URINE 1 /hpf (0-5); URINE COLOR YELLOW (YELLW/STRAW); URINE LEUKOCYTE ESTERASE TRACE (NEG)
[2018-03-23] MEDS ORDERED: SODIUM CHLORIDE 0.9% FLUSH 10 ML FLUSH IV FLUSH PRN (19:45)
[2018-03-23] MEDS ORDERED: LORATADINE 10 MG TAB PO PRN (20:00)
[2018-03-23 20:35] VITALS: BP 161/93; PULSE 71; RESP 18; TEMP 97; O2SAT 96
[2018-03-23] MEDS: SODIUM CHLOR 0.9% 1000 ML INJ 1,000 ML IV SCH (20:44)
[2018-03-23] MEDS: SODIUM CHLORIDE 0.9% FLUSH 10 ML FLUSH IV FLUSH SCH (20:45)
[2018-03-23] MEDS: TERAZOSIN HCL 1 MG CAP PO SCH (20:45)
[2018-03-23] MEDS: FLECAINIDE ACETATE 100 MG TAB PO SCH (20:45)
[2018-03-23 21:07] VITALS: PULSE 85
--- NOTE | 2018-03-23 21:29 | HHI.HP ---
[facility] Primary Care Physician Shiva Jaffe M.D. Admission Diagnosis Syncope; nasal fracture; CHRISTINA Diagnoses: Travel History International Travel<30 Days: No Contact w/Intl Traveler <30 Da: No Traveled to Known Affected Are: No History of Present Illness 87-year-old male with a past medical history significant for autonomic nervous system disorder, neuropathy, atrial fibrillation anticoagulated on Eliquis, Crohn's, BPH, aortic valve stenosis, ELICIA, COPD, CKD stage II presents to the emergency department for the evaluation of a syncopal episode. The patient reports she is followed approximately 14 times over the past year. Outpatient workup has been negative and the patient states his doctors have told him his falls are secondary to his neuropathy and his autonomic nervous system disorder. The patient had a syncopal episode this morning that occurred while he was on his way to the bathroom. He reports that he has no memory of the fall however he awoke on the floor with bowel incontinence. He was not sitting on the toilet or straining at the time of the event. The patient denies any pain anywhere. He does not have any head contusions or lacerations. He denies any chest pain or shortness of breath. No abdominal pain. No nausea/vomiting/ diarrhea. No lateralizing signs/symptoms. Review of Systems Except as stated in HPI: all other systems reviewed are Neg Past Family Social History Past Medical History autonomic nervous system disorder, neuropathy, atrial fibrillation anticoagulated on Eliquis, Crohn's, BPH, aortic valve stenosis, ELCIIA, COPD, CKD stage II Past Surgical History Cataract surgery Ileocolic resection Cervical spine fusion Cholecystectomy Right rotator cuff repair Appendectomy Tonsillectomy Reported Medications Reported Meds & Active Scripts Active Reported Claritin (Loratadine) 10 Mg Tablet 10 Mg PO DAILY PRN Ativan (Lorazepam) 1 Mg Tab 1 Mg PO DAILY PRN Klonopin (Clonazepam) 2 Mg Tab 2 Mg PO HS Loperamide (Loperamide HCl) 2 Mg Cap 2 Mg PO DAILY One capsule after each loose stool. Not to exceed 8 capsules per day. [place] 160 mg Softgel (Pumpkin Seed Oil/S[place]) 160 Mg Capsule 160 Mg PO DAILY Vitamin K (Phytonadione) 100 Mcg Tab 100 Mcg PO DAILY Bupropion HCl ER 24 HR (Bupropion HCl) 150 Mg Tab 150 Mg PO DAILY Glucosamine-Chondroitin Tablet (Glucosamine HCl/Chondr Farley A Na) 750 Mg-600 Mg Tablet 2 Tab PO BID Potassium Chloride ER (Potassium Chloride) 20 Meq Tab 80 Meq PO BID Terazosin (Terazosin HCl) 1 Mg Cap 1 Mg PO HS Duloxetine DR (Duloxetine HCl) 60 Mg Capdr 60 Mg PO DAILY Fish Oil 1200 mg (Morgan-3 Fatty Acids) 360 Mg-1,200 Mg Cap 1 Cap PO BID D3 (Cholecalciferol) 1,000 Unit Tab 500 Units PO BID Calcium 600 (Calcium Carbonate) 600 Mg Calcium (1500 Mg) Tab 600 Mg PO BID Cyanocobalamin Inj (Cyanocobalamin) 1,000 Mcg/Ml Inj 1,000 Mcg IM TWICE A MONTH 2 Days 1ST & 15 Pantoprazole (Pantoprazole Sodium) 40 Mg Tab 40 Mg PO DAILY Biotin 1 Mg Cap 1 Mg PO DAILY Flecainide (Flecainide Acetate) 100 Mg Tab 100 Mg PO BID Eliquis (Apixaban) 5 Mg Tab 2.5 Mg PO BID Metamucil [facility] Fiber (Psyllium Hydrophilic Mucilloid) 58.12 % Pow PO BID 2 teaspoonsful w/10oz of gatorade Fluticasone Nasal [place] 50 Mcg/Act Naspr 1 Spr EACH NARE DAILY 50 mcg/spray Allergies: Coded Allergies: sulfamethoxazole (Unverified Allergy, Severe, 03/23/18) trimethoprim (Unverified Allergy, Severe, 03/23/18) penicillin G (Unverified Allergy, Intermediate, 03/23/18) Family History Patient does not know Social History Denies alcohol, tobacco and illicit drugs Physical Exam Vital Signs Vital Signs Date Time Temp Pulse Resp B/P (MAP) Pulse Ox O2 Delivery O2 Flow Rate FiO2 03/23/18 20:35 97.0 71 18 161/93 (115) 96 03/23/18 20:07 03/23/18 18:28 68 19 163/77 (105) 96 Nasal Cannula 2.00 03/23/18 16:59 97 Nasal Cannula 2.00 03/23/18 15:27 73 19 117/91 (100) 95 Room Air 03/23/18 14:48 97.8 80 18 111/61 (78) 94 Physical Exam GENERAL: Elderly, male lying in bed SKIN: No rashes, ecchymoses or lesions. Cool and dry. HEAD: Atraumatic. Normocephalic. No temporal or scalp tenderness. EYES: Pupils equal round and reactive. Extraocular motions intact. No scleral icterus. No injection or drainage. ENT: Nose without bleeding, purulent drainage or septal hematoma. Throat without erythema, tonsillar hypertrophy or exudate. Uvula midline. Airway patent. NECK: Trachea midline. No JVD or lymphadenopathy. Supple, nontender, no meningeal signs. CARDIOVASCULAR: Regular rate and rhythm without murmurs, gallops, or rubs. RESPIRATORY: Clear to auscultation. Breath sounds equal bilaterally. No wheezes , rales, or rhonchi. GASTROINTESTINAL: Abdomen soft, non-tender, nondistended. No hepato-splenomegaly , or palpable masses. No guarding. MUSCULOSKELETAL: Extremities without clubbing, cyanosis, or edema. No joint tenderness, effusion, or edema noted. No calf tenderness. NEUROLOGICAL: Awake and alert. Cranial nerves II through XII intact. Motor and sensory grossly within normal limits. Five out of 5 muscle strength in all muscle groups. Normal speech. Laboratory Laboratory Tests Test 03/23/18 15:50 03/23/18 19:15 White Blood Count 8.8 Red Blood Count 4.85 Hemoglobin 14.2 Hematocrit 43.2 Mean Corpuscular Volume 89.1 Mean Corpuscular Hemoglobin 29.3 Mean Corpuscular Hemoglobin Concent 32.9 Red Cell Distribution Width 17.2 Platelet Count 202 Mean Platelet Volume 7.8 Neutrophils (%) (Auto) 81.9 Lymphocytes (%) (Auto) 9.4 Monocytes (%) (Auto) 7.8 Eosinophils (%) (Auto) 0.5 Basophils (%) (Auto) 0.4 Neutrophils # (Auto) 7.2 Lymphocytes # (Auto) 0.8 Monocytes # (Auto) 0.7 Eosinophils # (Auto) 0.0 Basophils # (Auto) 0.0 CBC Comment DIFF FINAL Differential Comment Prothrombin Time 10.7 Prothromb Time International Ratio 1.1 Activated Partial Thromboplast Time 26.0 Blood Urea Nitrogen 17 Creatinine 2.54 Random Glucose 95 Total Protein 7.1 Albumin 3.6 Calcium Level 8.9 Magnesium Level 2.1 Alkaline Phosphatase 75 Aspartate Amino Transf (AST/SGOT) 33 Alanine Aminotransferase (ALT/SGPT) 20 Total Bilirubin 0.9 Sodium Level 136 Potassium Level 5.1 Chloride Level 102 Carbon Dioxide Level 23.7 Anion Gap 10 Estimat Glomerular Filtration Rate 24 Total Creatine Kinase 194 Creatine Kinase MB 1.7 Troponin I LESS THAN 0.02 B-Type Natriuretic Peptide 19 Urine Color YELLOW Urine Turbidity CLEAR Urine pH 5.5 Urine Specific [place] 1.010 Urine Protein TRACE Urine Glucose (UA) NEG Urine Ketones NEG Urine Occult Blood NEG Urine Nitrite NEG Urine Bilirubin NEG Urine Urobilinogen LESS THAN 2.0 Urine Leukocyte Esterase TRACE Urine RBC LESS THAN 1 Urine WBC 2 Urine Squamous Epithelial Cells 1 Urine Hyaline Casts 5 Urine Mucus FEW Microscopic Urinalysis Comment CULT NOT INDICATED Result Diagram: 03/23/18 1550 03/23/18 1550 Caprini VTE Risk Assessment Caprini VTE Risk Assessment: Mod/High Risk (score >= 2) Caprini Risk Assessment Model Point Value = 1 Point Value = 2 Point Value = 3 Point Value = 5 Age 41-60 Minor surgery BMI > 25 kg/m2 Swollen legs Varicose veins or History of unexplained or recurrent spontaneous Oral contraceptives or hormone replacement Sepsis (< 1 month) Serious lung disease, including pneumonia (< 1 month) Abnormal pulmonary function Acute myocardial infarction Congestive heart failure (< 1 month) History of inflammatory bowel disease Medical patient at bed rest Age 61-74 Arthroscopic surgery Major open surgery (> 45 min) Laparoscopic surgery (> 45 min) Malignancy Confined to bed (> 72 hours) Immobilizing plaster cast Central venous access Age >= 75 History of VTE Family history of VTE Factor V Leiden Prothrombin [id number] Lupus anticoagulant Anticardiolipin antibodies Elevated serum homocysteine Heparin-induced thrombocytopenia Other congenital or acquired thrombophilia Stroke (< 1 month) Elective arthroplasty Hip, pelvis, or leg fracture Acute spinal cord injury (< 1 month) Prophylaxis Regimen Total Risk Factor Score Risk Level Prophylaxis Regimen 0-1 Low Early ambulation 2 Moderate Order ONE of the following: *Sequential Compression Device (SCD) *Heparin 5000 units SQ BID 3-4 Higher Order ONE of the following medications: *Heparin 5000 units SQ TID *Enoxaparin/Lovenox 40 mg SQ daily (WT < 150 kg, CrCl > 30 mL/min) *Enoxaparin/Lovenox 30 mg SQ daily (WT < 150 kg, CrCl > 10-29 mL/min) *Enoxaparin/Lovenox 30 mg SQ BID (WT < 150 kg, CrCl > 30 mL/min) AND/OR *Sequential Compression Device (SCD) 5 or more Highest Order ONE of the following medications: *Heparin 5000 units SQ TID (Preferred with Epidurals) *Enoxaparin/Lovenox 40 mg SQ daily (WT < 150 kg, CrCl > 30 mL/min) *Enoxaparin/Lovenox 30 mg SQ daily (WT < 150 kg, CrCl > 10-29 mL/min) *Enoxaparin/Lovenox 30 mg SQ BID (WT < 150 kg, CrCl > 30 mL/min) AND *Sequential Compression Device (SCD) Assessment and Plan Assessment and Plan Assessment/plan: 1. Syncope Unclear etiology Carotid ultrasound/echo pending Head CT negative Patient does take Klonopin at night, may be secondary to benzo use 2. Atrial fibrillation Continue home Nicolettequseymour Continue home medications 3. Crohn's disease Continue home medications 4. Acute on chronic kidney injury Creatinine 2.54, baseline 1.5 IV fluid hydration Monitor renal function 5. ELICIA/COPD Continue home medications Home CPAP FEN Heart healthy diet NS at 100 cc/hour Electrolytes: Monitor and replete as needed Padmini Lehman MD March 23, 2018 21:29
[2018-03-23] MEDS ORDERED: PILL SPLITTER OTHER PRN (21:30)
[2018-03-24] VITALS (15 sets, daily range): BP systolic 101–163; BP diastolic 56–77; PULSE 62–85; RESP 16–20; TEMP 96.4–98.4; O2SAT 93–96
[2018-03-24] MEDS: SODIUM CHLOR 0.9% 1000 ML INJ 1,000 ML IV SCH ×2 (04:38→16:33)
[2018-03-24 07:02] LABS: AUTOMATED NEUTROPHIL # 3.9 TH/MM3 (1.8-7.7); BASOPHIL % 0.5 % (0.0-2.0); EOSINOPHIL # 0.2 TH/MM3 (0-0.4); HEMATOCRIT 37.9 % (39.0-51.0); HEMOGLOBIN 12.7 GM/DL (13.0-17.0); LYMPH % 21.1 % (9.0-44.0); LYMPHOCYTE # 1.3 TH/MM3 (1.0-4.8); MEAN CELL VOLUME 89.1 FL (80.0-100.0); MEAN CORPUSCULAR HGB CONC 33.6 % (32.0-36.0); MEAN PLATELET VOLUME 7.8 FL (7.0-11.0); MONO % 10.6 % (0.0-8.0); MONOCYTE # 0.6 TH/MM3 (0-0.9); NEUT % 64.8 % (16.0-70.0); PLATELET COUNT 164 TH/MM3 (150-450); RED BLOOD COUNT 4.25 MIL/MM3 (4.50-5.90); RED CELL DISTRIBUTION WIDTH 16.9 % (11.6-17.2)
[2018-03-24 07:30] LABS: BICARBONATE 26.3 MEQ/L (21.0-32.0); CALCIUM 7.7 MG/DL (8.5-10.1); CREATININE 1.99 MG/DL (0.60-1.30)
[2018-03-24] MEDS: FLECAINIDE ACETATE 100 MG TAB PO SCH ×2 (08:21→22:33)
[2018-03-24] MEDS: buPROPion HCL 150 MG SUSTAINED RELEASE TAB PO SCH (08:22)
[2018-03-24] MEDS: PANTOPRAZOLE SOD 40 MG DELAYED RELEASE TAB PO SCH (08:22)
[2018-03-24] MEDS: DULoxetine HCl DR 60 MG CAP PO SCH (08:22)
[2018-03-24] MEDS: APIXABAN 5 MG TABLET PO SCH ×2 (08:22→22:34)
[2018-03-24] MEDS: SODIUM CHLORIDE 0.9% FLUSH 10 ML FLUSH IV FLUSH SCH ×2 (08:25→21:00)
--- NOTE | 2018-03-24 10:54 | RADRPT ---
EXAM DATE: 03/24/2018 9:41 AM EDT AGE/SEX: 87 years / Male INDICATIONS: Syncope. CLINICAL DATA: This is the patient's initial encounter. Patient reports that signs and symptoms have been present for 1 day and indicates a pain score of 0/10. MEDICAL/SURGICAL HISTORY: Hypercholesterolemia. Crohn?s disease. Diverticulitis. Peripheral neuropathy. Autonomic nervous system disorder. Spinal stenosis. Aortic valve stenosis. AFib. HTN. Sle ep apnea. [place]'s esophagus. Stage II renal failure. Arthritis. Skin cancer. Tonsillectomy. Appen dectomy. Cholecystectomy. Cataract surgery. Iliocolic resection. Right rotator cuff surgery. Anteri or cervical laminectomy. Diskectomy. [place] [facility] [place]. . No external comparison. VELOCITY PARAMETERS: ICA/CCA Ratio: Right 0.8 , Left 0.9 ICA: Right 92 cm/sec, Left 86 cm/sec CCA: Right 113 cm/sec, Left 91 cm/sec ECA: Right 119 cm/sec, Left 121 cm/sec Vertebral: Right 52 cm/sec antegrade, Left 49 cm/sec antegrade FINDINGS: Right Carotid: No significant stenosis is visualized. The waveforms are within normal limits. Left Carotid: No significant stenosis is visualized. The waveforms are within normal limits. Other: None. CONCLUSION: 1. Right Internal Carotid Artery: No significant stenosis is visualized. 2. Left Internal Carotid Artery: No significant stenosis is visualized. Electronically signed by: Bradley Chavez MD 03/24/2018 10:53 AM EDT
--- NOTE | 2018-03-24 11:03 | HHI.PR ---
Subjective Remarks Follow up syncope. Patient denies chest pain, dyspnea, dizziness. He hopes to be able to go home today. He is scheduled for further outpatient workup with neurology at the [facility] Objective Vitals Vital Signs Date Time Temp Pulse Resp B/P (MAP) Pulse Ox O2 Delivery O2 Flow Rate FiO2 03/24/18 08:21 Nasal Cannula 3.00 03/24/18 07:34 96.4 64 18 136/63 (87) 96 03/24/18 04:00 97.8 66 18 111/60 (77) 96 03/24/18 03:30 65 03/24/18 03:08 Nasal Cannula 3.00 03/24/18 00:00 85 03/24/18 00:00 98.1 71 20 101/56 (71) 94 03/23/18 21:07 85 03/23/18 20:35 97.0 71 18 161/93 (115) 96 03/23/18 20:07 03/23/18 18:28 68 19 163/77 (105) 96 Nasal Cannula 2.00 03/23/18 16:59 97 Nasal Cannula 2.00 03/23/18 15:27 73 19 117/91 (100) 95 Room Air 03/23/18 14:48 97.8 80 18 111/61 (78) 94 I/O 03/23/18 03/23/18 03/23/18 03/24/18 03/24/18 03/24/18 07:00 15:00 23:00 07:00 15:00 23:00 Intake Total 1000 ml Balance 1000 ml Intake IV Total 1000 ml # Voids 1 Result Diagram: 03/24/18 0436 03/24/18 0436 Imaging Last Impressions Head CT 03/23/18 1509 Signed Impressions: CONCLUSION: 1. Stable CT scan of the brain compared to 2017. 2. No focal or acute intracranial hemorrhage. Cervical Spine CT 03/23/18 1509 Signed Impressions: CONCLUSION: 1. No acute bony fracture. 2. Status post anterior cervical fusion from C4 through C7. There is good alig nment of the cervical spine and fusion. 3. Bilateral facet arthritis at multiple levels. 4. No significant changes compared to the prior exam. Maxillofacial CT 03/23/18 0000 Signed Impressions: CONCLUSION: 1. Active superior nasal spine otherwise negative Chest X-Ray 03/23/18 Signed Impressions: CONCLUSION: Small area of atelectasis at the left lung base. This is similar to previous da dionte 06/09/2017. No acute abnormality is seen. Chest CT 03/23/18 Signed Impressions: CONCLUSION: 1. Bibasilar infiltrates, left greater than right. 2. Chronic interstitial changes bilaterally. Abdomen/Pelvis CT 03/23/18 Signed Impressions: CONCLUSION: 1. Patchy airspace disease both lungs worse the left that could be contusion. 2. Negative for sonolucent injury 3. Degenerative changes in the thoracolumbar spine without fracture. 4. Lack of intravenous contrast makes detection of subtle abnormality difficul t. Objective Remarks General: Elderly male in no acute distress. HEENT: Periorbital ecchymosis on the right with ecchymosis also overlying the bridge of the nose. Heart: Regular rate and rhythm. No murmur. Lungs: Clear to auscultation bilaterally. No wheezes, rales, or rhonchi. Breathing is nonlabored. Abdomen: Soft, nontender, nondistended. Extremities: No lower extremity edema. Psych: Alert and oriented. Neuro: Normal speech. No focal deficits noted. Procedures None Urinary Catheter: No Vascular Central Line Catheter: No A/P Assessment and Plan 1. Syncope: Uncertain etiology. Patient does not recall falling, and does not recall any symptoms prior to the fall. Head CT is negative. Echocardiogram is pending. Carotid artery ultrasound shows no significant stenosis. He has had multiple falls in the past year, and has been told that these are secondary to autonomic dysfunction. Neurology consultation is pending. The patient is scheduled to be evaluated at the [facility]. 2. Atrial fibrillation: Continue Eliquis. 3. Crohn's disease: Continue home medications. 4. Acute kidney injury superimposed on chronic kidney disease stage III: Continue IV fluids. 5. Obstructive sleep apnea: Continue CPAP. 6. Superior nasal spine fracture: Continue pain control. 7. DVT prophylaxis: Eliquis. Discharge Planning Pending neurology evaluation, echocardiogram. Romaine Gallardo MD March 24, 2018 11:03
--- NOTE | 2018-03-24 14:16 | EKG ---
Date Performed: 03/23/2018 Time Performed: 15:44:42 PTAGE: 87 years EKG: Sinus rhythm WITH FIRST DEGREE AV BLOCK RIGHT BUNDLE BRANCH BLOCK LEFT ANTERIOR FASCICULAR BLOCK ABNORMAL ECG PREVIOUS TRACING : 06/09/2017 20.07 DOCTOR: Adam Adair Interpretating Date/Time 03/26/2018 07:44:42
--- NOTE | 2018-03-24 14:32 | ECHRPT ---
Indication: Syncope and collapse CONCLUSIONS The left ventricular systolic function is mildly reduced with an estimated ejection fraction in the range of 45- 50%. Wall thickness is measured at the upper limits of normal. Normal left ventricular size. BP: 136 / 63 HR: 64 Rhythm: Sinus MEASUREMENTS (Male / Female) Normal Values Technical Quality:Technically difficult study 2D ECHO LV Diastolic Diameter PLAX 3.9 cm 4.2 - 5.9 / 3.9 - 5.3 cm LV Systolic Diameter PLAX 3.1 cm IVS Diastolic Thickness 1.1 cm 0.6 - 1.0 / 0.6 - 0.9 cm LVPW Diastolic Thickness 1.1 cm 0.6 - 1.0 / 0.6 - 0.9 cm LV Relative Wall Thickness 0.6 LVOT Diameter 2.4 cm M-MODE Aortic Root Diameter MM 3.2 cm LA Systolic Diameter MM 3.2 cm LA Ao Ratio MM 1.0 AV Cusp Separation MM 1.8 cm DOPPLER AV Peak Velocity 124.0 cm/s AV Peak Gradient 6.2 mmHg LVOT Peak Velocity 60.0 cm/s LVOT Peak Gradient 1.4 mmHg AV Area Cont Eq pk 2.2 cm PV Peak Velocity 82.8 cm/s PV Peak Gradient 2.7 mmHg FINDINGS LEFT VENTRICLE The left ventricular systolic function is mildly reduced with an estimated ejection fraction in the range of 45- 50%. Wall thickness is measured at the upper limits of normal. Normal left ventricular size. RIGHT VENTRICLE Normal right ventricular size and systolic function. LEFT ATRIUM The left atrial size is normal. RIGHT ATRIUM The right atrial size is normal. ATRIAL SEPTUM Normal atrial septal thickness without atrial level shunting by limited color doppler interrogation. AORTA The aortic root and proximal ascending aorta are normal in size on limited imaging. MITRAL VALVE Structurally normal mitral valve. No mitral valve stenosis or regurgitation. AORTIC VALVE Trileaflet aortic valve. No aortic valve stenosis or regurgitation. TRICUSPID VALVE Structurally normal tricuspid valve. No tricuspid valve stenosis or regurgitation. PULMONARY VALVE The pulmonary valve is not well visualized. VESSELS The inferior vena cava is normal in size. PERICARDIUM No pericardial effusion. Scotty Silverio MD, FACC, [facility] (Electronically Signed) Final Date:24 Mar 2018 14:31
--- NOTE | 2018-03-24 17:06 | MG ---
cc: Jacqueline Vega MD EEG NUMBER: [id number] REFERRING PROVIDER: Dr. Jose. INDICATION: Room H85, with photic stimulation. Awake, drowsy, asleep. CT stable. History of fall, possible syncope. On Wellbutrin, Cymbalta, Protonix and others. Also history of atrial fibrillation, on Eliquis. DESCRIPTION OF RECORD: The patient has overall background alpha of 8 Hz, 20 microvolts, low amplitude EEG. EKG difficult to tell if sinus. No P waves are visible. No epileptiform features in the EEG. Low background, but overall normal alpha rhythm. Photic stimulation does show mild driving response. IMPRESSION: Overall, normal appearing electroencephalogram. No epileptiform features in this one recording. Clinical correlation. Jacqueline Vega MD DF/ARELIS , 04:54 PM , 05:05 PM
--- NOTE | 2018-03-24 17:21 | MB ---
cc: Jacqueline Vega MD, Dalia MD DATE: 03/24/2018 REASON FOR CONSULTATION: Syncope. HISTORY OF PRESENT ILLNESS: The patient is an 87-year-old male with a history of autonomic disorder, neuropathy, A-fib anticoagulated on Eliquis, Crohn's disease, BPH, aortic valve stenosis, sleep apnea, COPD, stage II kidney disease who comes in after he had possible syncope or syncopal episodes. He tells me he has had about 14 of these events over the last year. He is going back to [facility] in [place], [place] at the end of March for a follow-up workup. He has seen a neurologist in the past and [facility] Dr[facility] Schaef[facility], that he has neuropathy, his left leg more affected than the right. He cannot recall if he has had an EMG, nerve conduction or any neuropathy labs. He states that he has had cervical spine surgery a number of years ago and he has some neck pain with chronic headaches since moving to [place]. This was sometime after the cervical spine surgery. He states that he is an avid athlete and he likes to participate in the senior type sports where he throws a shot put and a discus, which requires a lot of effort. He cannot really say if he has passed out or nearly passed out. He does not know if he has any orthostasis. He denies feeling really dizzy or lightheaded. PAST SURGICAL HISTORY: Cataracts, ileocolic resection, cervical spine fusion, cholecystectomy, right rotator cuff, appendectomy, tonsillectomy. HOME MEDICINES: 1. Claritin. 2. Ativan daily p.r.n. 3. Clonazepam 2 mg at bedtime. 4. Loperamide p.r.n. 5. Saw palmetto. 6. Vitamin K 7. Bupropion. 8. Glucosamine. 8. Potassium 9. Terazosin 10. Duloxetine. 11. Fish oil 12. D3 13. Calcium, 14. B12 monthly. 15. Pantoprazole. 16. Flecainide 17. Eliquis. ALLERGIES: SULFAMETH AZOLE, TRIMETHOPRIM AND PENICILLIN G. FAMILY HISTORY: Noncontributory. SOCIAL HISTORY: Lives alone. Does not smoke or drink or use any illicit drugs. PHYSICAL EXAMINATION: VITAL SIGNS: Temperature is 97.7, pulse 73, respiratory rate 18, blood pressure 134/63. No orthostatics have been checked. NECK: Supple. No appreciable bruits. HEART: Regular. NEUROLOGIC: He is awake, alert. He is oriented and fluent. Pupils reactive. Face symmetrical. Tongue midline. Motor patel - upper extremities no weakness. No significant weakness in the lower extremities. He does have reflexes. Sensory patel, he can feel temperature, difficulty with light touch and vibration from the knee down. Position sense is altered as well. Toes are downgoing. Cerebellar testing is normal. Gait cannot be assessed safely without a walker. LABORATORY DATA: Reviewed. His white count is normal, hemoglobin 12.7. Coag panel is unremarkable. Chemistries: Creatinine 1.99, GFR 32. His last B12 level was checked in November, was 1046. Urinalysis unremarkable. IMAGING STUDIES: Carotid ultrasound: Minimal plaquing, but nothing significant. CT of the head: Stable. No acute findings. Cervical spine CT: No acute fracture, status post cervical fusion from C4 through C7. Good alignment. Bilateral facet arthritis at multiple levels. No change from prior exam. ASSESSMENT AND PLAN: Syncope versus near syncope. I would recommend checking orthostatics. Electroencephalogram was done. We will get those results. We will also check an MRI of the brain and the [facility] to check for intracranial disease and/or any evidence of strokes in the past. His echo was done. He has ejection fraction of 45-50%. I would anticipate if his workup is negative, he can be discharged. I would recommend balance therapy rehabilitation as an outpatient and followup with the [facility]. Thank you for allowing me to participate in his care. Call me with any questions or concerns. MD BEBA Garcia/ , 04:09 PM , 05:20 PM
[2018-03-24] MEDS: TERAZOSIN HCL 1 MG CAP PO SCH (22:33)
--- NOTE | 2018-03-24 22:54 | RADRPT ---
EXAM DATE: 03/24/2018 10:45 PM EDT AGE/SEX: 87 years / Male INDICATIONS: . Syncope CLINICAL DATA: This is the patient's subsequent encounter. Patient reports that signs and symptoms h ave been present for 2 days and indicates a pain score of 0/10. MEDICAL/SURGICAL HISTORY: . Aortic Valve Stenosis, Autonomic Nervous System Disorder, Spinal St enosis, Atrial Fibrillation, HTN, HDL Cholecystectomy. Anterior Cervical Laminectomy, Cataracts, Rot ator Cuff, Spinal surgery, Appendectomy COMPARISON: No prior [place] exams available for comparison. TECHNIQUE: Multiplanar, multisequence examination of the brain was performed without contrast. FINDINGS: Cerebrum: The ventricles are normal for age. There is bilateral cortical atrophy. No evidence of mi dline shift, mass lesion, hemorrhage or acute infarction. No extraaxial fluid collections are seen. The pituitary gland and suprasellar cistern are normal in configuration. White Matter: No significant signal abnormalities are seen in the white matter. A few high signal sp ots are seen in the white matter tracts bilaterally characteristic of ischemic demyelinization. This correlates with patient's age. Posterior Fossa: The cerebellum and brainstem are intact. The 4th ventricle is midline. The cerebel lopontine angle is unremarkable. The cerebellar tonsils are normal in position. Diffusion Imaging: No focal areas of restricted diffusion are seen. No evidence of acute infarction . Extracranial: The visualized portions of the orbits and paranasal sinuses are unremarkable. CONCLUSION: 1. Bilateral cortical atrophy and chronic white matter changes. Electronically signed by: Jonatan Stovall MD 03/24/2018 10:53 PM EDT
[2018-03-25] VITALS: BP 147/73; PULSE 65; PULSE 66; RESP 17; TEMP 98.6; O2SAT 94
[2018-03-25] MEDS: SODIUM CHLOR 0.9% 1000 ML INJ 1,000 ML IV SCH ×2 (02:08→12:04)
[2018-03-25 04:00] VITALS: BP 136/70; PULSE 61; PULSE 68; RESP 17; TEMP 98.6; O2SAT 94
[2018-03-25 07:31] VITALS: PULSE 62
[2018-03-25] MEDS: buPROPion HCL 150 MG SUSTAINED RELEASE TAB PO SCH (07:55)
[2018-03-25] MEDS: FLECAINIDE ACETATE 100 MG TAB PO SCH (07:55)
[2018-03-25] MEDS: DULoxetine HCl DR 60 MG CAP PO SCH (07:55)
[2018-03-25] MEDS: APIXABAN 5 MG TABLET PO SCH (07:56)
[2018-03-25] MEDS: SODIUM CHLORIDE 0.9% FLUSH 10 ML FLUSH IV FLUSH SCH (07:56)
[2018-03-25] MEDS: PANTOPRAZOLE SOD 40 MG DELAYED RELEASE TAB PO SCH (07:56)
[2018-03-25 08:00] VITALS: BP 142/73; PULSE 64; RESP 20; TEMP 96.9; O2SAT 95
--- NOTE | 2018-03-25 08:09 | RADRPT ---
EXAM DATE: 03/24/2018 10:57 PM EDT AGE/SEX: 87 years / Male INDICATIONS: . Syncope CLINICAL DATA: This is the patient's subsequent encounter. Patient reports that signs and symptoms h ave been present for 2 days and indicates a pain score of 0/10. MEDICAL/SURGICAL HISTORY: Cardiovascular disease. Aortic Valve Stenosis, Autonomic Nervous Syst em Disorder, Spinal Stenosis, Atrial Fibrillation, HTN, HDL Cholecystectomy. Anterior Cervical Musa ectomy, Cataracts, Rotator Cuff, Spinal surgerg, Appendectomy COMPARISON: [facility] [place], [place], MRI BRAIN W/O CONTRAST, 03/24/2018. . TECHNIQUE: 3D [id number] MRA was performed. Source images, multiplanar STS MIP, and 3D volum e MIP reconstructions were reviewed. FINDINGS: There is excellent visualization of the major intracranial arteries out to the second-order branch ve ssels. There is no evidence for aneurysm, vessel truncation or stenosis, and no evidence for vascula r malformation. Anterior communicating artery. Right-sided posterior indicating artery. Vertebrobasil ar junction normal. Dominant left vertebral artery. Basilar artery intact. CONCLUSION: 1. No large vessel stenosis or aneurysm. Electronically signed by: Adelfo Amaya MD 03/25/2018 8:08 AM EDT
--- NOTE | 2018-03-25 10:26 | HHI.PR ---
Subjective Remarks Follow-up fall. The patient states that he feels better today and wants to go home. No lightheadedness or dizziness. No chest pain or shortness of breath. Still complaining of left-sided rib cage pain with deep breaths. Objective Vitals Vital Signs Date Time Temp Pulse Resp B/P (MAP) Pulse Ox O2 Delivery O2 Flow Rate FiO2 03/25/18 08:00 Room Air 03/25/18 08:00 96.9 64 20 142/73 (96) 95 03/25/18 07:31 62 03/25/18 04:00 98.6 68 17 136/70 (92) 94 03/25/18 04:00 61 03/25/18 00:00 65 03/25/18 00:00 98.6 66 17 147/73 (97) 94 03/24/18 22:45 Room Air 03/24/18 22:25 98.4 70 16 152/77 (102) 93 03/24/18 19:54 96 Nasal Cannula 3.00 03/24/18 17:55 134/73 (93) 03/24/18 17:54 149/76 (100) 03/24/18 17:51 81 163/77 (105) 03/24/18 15:34 97.7 73 18 134/63 (86) 96 03/24/18 15:11 94 Room Air 03/24/18 15:00 75 03/24/18 12:45 67 03/24/18 12:36 96.8 67 18 118/68 (85) 95 I/O 03/24/18 03/24/18 03/24/18 03/25/18 03/25/18 03/25/18 07:00 15:00 23:00 07:00 15:00 23:00 Intake Total 1000 ml Output Total 400 ml 100 ml 1150 ml Balance -400 ml 900 ml -1150 ml Intake IV Total 1000 ml Output Urine Total 400 ml 100 ml 1150 ml # Voids 1 # Bowel Movements 1 Result Diagram: 03/24/18 0436 03/24/18 0436 Imaging Last Impressions Head Magnetic Resonance Angiography 03/24/18 0000 Signed Impressions: CONCLUSION: 1. No large vessel stenosis or aneurysm. Carotid Artery Ultrasound 03/24/18 0000 Signed Impressions: CONCLUSION: 1. Right Internal Carotid Artery: No significant stenosis is visualized. 2. Left Internal Carotid Artery: No significant stenosis is visualized. Brain MRI 03/24/18 Signed Impressions: CONCLUSION: 1. Bilateral cortical atrophy and chronic white matter changes. Head CT 03/23/18 1509 Signed Impressions: CONCLUSION: 1. Stable CT scan of the brain compared to 2017. 2. No focal or acute intracranial hemorrhage. Cervical Spine CT 03/23/18 1509 Signed Impressions: CONCLUSION: 1. No acute bony fracture. 2. Status post anterior cervical fusion from C4 through C7. There is good alig nment of the cervical spine and fusion. 3. Bilateral facet arthritis at multiple levels. 4. No significant changes compared to the prior exam. Maxillofacial CT 03/23/18 0000 Signed Impressions: CONCLUSION: 1. Active superior nasal spine otherwise negative Chest X-Ray 03/23/18 Signed Impressions: CONCLUSION: Small area of atelectasis at the left lung base. This is similar to previous da dionte 06/09/2017. No acute abnormality is seen. Chest CT 03/23/18 0000 Signed Impressions: CONCLUSION: 1. Bibasilar infiltrates, left greater than right. 2. Chronic interstitial changes bilaterally. Abdomen/Pelvis CT 03/23/18 0000 Signed Impressions: CONCLUSION: 1. Patchy airspace disease both lungs worse the left that could be contusion. 2. Negative for sonolucent injury 3. Degenerative changes in the thoracolumbar spine without fracture. 4. Lack of intravenous contrast makes detection of subtle abnormality difficul t. Objective Remarks General: Elderly male in no acute distress. HEENT: Periorbital ecchymosis on the right with ecchymosis also overlying the bridge of the nose. Heart: Regular rate and rhythm. No murmur. Lungs: Clear to auscultation bilaterally. No wheezes, rales, or rhonchi. Breathing is nonlabored. Chest wall: No tenderness on the left lateral rib cage. Abdomen: Soft, nontender, nondistended. Extremities: No lower extremity edema. Psych: Alert and oriented. Neuro: Normal speech. No focal deficits noted. Procedures None Urinary Catheter: No Vascular Central Line Catheter: No A/P Assessment and Plan 1. Syncope: Uncertain etiology. Patient does not recall falling, and does not recall any symptoms prior to the fall. Head CT is negative. Echocardiogram shows ejection fraction 45-50%. Carotid artery ultrasound shows no significant stenosis. He has had multiple falls in the past year, and has been told that these are secondary to autonomic dysfunction. Appreciate neurology recommendations. MRI/MRA negative for acute changes. The patient is scheduled for further workup through the [facility]. 2. Atrial fibrillation: Continue Eliquis. 3. Crohn's disease: Continue home medications. 4. Acute kidney injury superimposed on chronic kidney disease stage III: Continue IV fluids. 5. Obstructive sleep apnea: Continue CPAP. 6. Superior nasal spine fracture: Continue pain control. 7. DVT prophylaxis: Eliquis. Discharge Planning Discharge home in stable condition. Follow up with neurology, PCP. Heart healthy diet. Activity with assistive device. Romaine Gallardo MD March 25, 2018 10:26
--- NOTE | 2018-03-25 10:27 | HHI.DCPOC ---
Discharge Care Plan Diagnosis: (1) Syncope (2) Nasal fracture (3) Afib Goals to Promote Your Health * To prevent worsening of your condition and complications * To maintain your health at the optimal level Directions to Meet Your Goals Take your medications as prescribed Follow your dietary instruction Follow activity as directed Keep your appointments as scheduled Take your immunizations and boosters as scheduled If your symptoms worsen call your PCP, if no PCP go to Urgent Care Center or Emergency Room Smoking is Dangerous to Your Health. Avoid second hand smoke Call the 24-hour hour crisis hotline for domestic abuse at Romaine Gallardo MD March 25, 2018 10:27
[2018-03-25 12:00] VITALS: BP 159/80; PULSE 71; RESP 20; TEMP 97.4; O2SAT 95
[2018-03-25 14:13] VITALS: O2SAT 96
[2018-03-25] MEDS ORDERED: WALKER WHEELS/F1 MIS (14:40)
[2018-03-25] MEDS ORDERED: WHEEMIS3 (14:41)
== END 2018-03-25 17:58 | disposition home or self-care (01) ==
LOC: NEPE 14:39 → NEDA 19:24 → NEPHCDU 20:13
PROVIDERS: ADMIT Family Medicine; ATTEND Family Medicine
DX: R55 Syncope and collapse (principal); I48.91 Unspecified atrial fibrillation; I25.10 Atherosclerotic heart disease of native coronary artery without angina pectoris; G62.9 Polyneuropathy, unspecified; G90.9 Disorder of the autonomic nervous system, unspecified; Z91.81 History of falling; R53.1 Weakness; R07.89 Other chest pain; R04.0 Epistaxis; Z85.828 Personal history of other malignant neoplasm of skin; E78.00 Pure hypercholesterolemia, unspecified; N18.3 Chronic kidney disease, stage 3 (moderate); I12.9 Hypertensive chronic kidney disease with stage 1 through stage 4 chronic kidney disease, or unspecified chronic kidney disease; G47.33 Obstructive sleep apnea (adult) (pediatric); Z79.899 Other long term (current) drug therapy; Z79.01 Long term (current) use of anticoagulants; J98.11 Atelectasis; S27.329A Contusion of lung, unspecified, initial encounter; S02.2XXA Fracture of nasal bones, initial encounter for closed fracture; N17.9 Acute kidney failure, unspecified; N40.0 Benign prostatic hyperplasia without lower urinary tract symptoms; K50.90 Crohn's disease, unspecified, without complications; J44.9 Chronic obstructive pulmonary disease, unspecified; I35.0 Nonrheumatic aortic (valve) stenosis; W19.XXXA Unspecified fall, initial encounter; Z98.1 Arthrodesis status; M54.2 Cervicalgia; R51 Headache; G31.1 Senile degeneration of brain, not elsewhere classified; I44.0 Atrioventricular block, first degree; I45.2 Bifascicular block; I13.0 Hypertensive heart and chronic kidney disease with heart failure and stage 1 through stage 4 chronic kidney disease, or unspecified chronic kidney disease
CPT/HCPCS: 70450; 70486; 70544; 70551; 71045; 71250; 72125; 74176; 80048; 80053; 81001; 82550; 82552; 83735; 83880; 84484; 85025; 85610; 85730; 93005; 93306; 93880; 95819; 96361; 96374; 97110; 97161; 97530; 99285; G0378; G8987; G8988; J2270; J7030